=== PATIENT | female | born 1940 | race Caucasian/White ===

== ENCOUNTER 2016-09-18 11:48 | Inpatient (IN) | payer OTHER ==
[2016-09-18] VITALS (15 sets, daily range): BP systolic 73–115; BP diastolic 32–61; PULSE 59–75; TEMP 37.2–39.1; O2SAT 96–98; BMI 28.0
[~2016-09-18] VITALS: Ht 152.4 cm; Wt 72.7 kg
[2016-09-18] MEDS ORDERED: ONDANSETRON INJ 2 MG/ML 2 ML VIAL IV PRN (15:00)
[2016-09-18] MEDS ORDERED: ACETAMINOPHEN 325 MG TAB PO PRN (15:00)
[2016-09-18] MEDS ORDERED: NITROGLYCERIN 0.4 MG SL PER TAB CHARGE SL PRN (15:00)
[2016-09-18] MEDS ORDERED: HYDR-4079 PO (15:12)
[2016-09-18] MEDS ORDERED: BCTCR/30 EXT (15:12)
[2016-09-18] MEDS ORDERED: ATOR-22 PO (15:12)
[2016-09-18] MEDS ORDERED: MAGN400T5 PO (15:12)
[2016-09-18] MEDS ORDERED: OMEP20CA9 PO (15:12)
[2016-09-18] MEDS ORDERED: DOXE1TAB2 PO (15:12)
[2016-09-18] MEDS ORDERED: DILT120C PO (15:12)
[2016-09-18] MEDS ORDERED: INSPMPRGR SC (15:12)
[2016-09-18] MEDS ORDERED: OMEG-112 PO (15:12)
[2016-09-18] MEDS ORDERED: lovaza PO (15:12)
[2016-09-18] MEDS ORDERED: DSY100 PO (15:12)
[2016-09-18] MEDS ORDERED: B-CO1CAP17 PO (15:12)
[2016-09-18] MEDS ORDERED: VANCOMYCIN CONSULT ACTIVE PRN (15:37)
[2016-09-18] MEDS ORDERED: GLUCAGON FOR INJ 1 MG VIAL SQ PRN (15:45)
[2016-09-18] MEDS ORDERED: PATIENT'S HEIGHT AND/OR WEIGHT NEEDED SCH (15:45)
[2016-09-18] MEDS ORDERED: GLUCOSE 10 TABS/TUBE PO PRN (15:45)
[2016-09-18] MEDS ORDERED: GLUCOSE 40% GEL 15 GM TUBE PO PRN (15:45)
[2016-09-18] MEDS ORDERED: DEXTROSE 50% 50 ML SYR IV PRN (15:45)
[2016-09-18] MEDS ORDERED: PHARMACY GLYCEMIC MGMT CONSULT PRN (16:12)
[2016-09-18 16:14] LABS: BASO % 0.2 %; BASO ABS # 0.04 K/uL (0-0.2); HEMATOCRIT 27.7 % (37-47); IG% 0.4 %; LYMPH % 6.3 %; LYMPH ABS # 1.32 K/uL (1.2-3.4); MEAN CELL VOLUME 94.2 fL (80-100); MEAN PLATELET VOLUME 9.9 fL (7.4-10.4); MONO % 6.2 %; NEUT % 86.9 %; PLATELET COUNT 159 K/uL (130-400); RED BLOOD COUNT 2.94 M/uL (4.2-5.4); WHITE BLOOD COUNT 21.02 K/uL (4.8-10.8)
[2016-09-18] MEDS: INSULIN ASPART 100 UNITS/ML 3 ML PEN SC SCH ×2 (16:15→21:00)
--- NOTE | 2016-09-18 16:26 | DIAGNOSTIC IMAGING REPORT ---
SINGLE VIEW CHEST CLINICAL HISTORY: Change in mental status. Infection. FINDINGS: An AP, portable, upright chest radiograph is obtained. No prior studies are available for comparison at the time of dictation. The examination is degraded by portable technique and patient rotation. The patient is status post midline sternotomy. The heart is enlarged and there is atherosclerotic calcification of the thoracic aorta. There is pulmonary vascular congestion. No airspace consolidation or large pleural effusion is identified. No pneumothorax is seen. The skeletal structures are osteopenic. The bony thorax is grossly intact. A vascular stent is noted in the left upper extremity. IMPRESSION: 1. Cardiomegaly with evidence of congestive failure. 2. There is no airspace consolidation or large pleural effusion. Electronically signed by: Josh Vazquez M.D. 09/18/2016 4:24 PM Dictated Date/Time: 09/18/2016 4:23 PM
[2016-09-18 16:29] LABS: INR 1.1 (0.9-1.1); PARTIAL THROMBOPLASTIN RATIO 1.2; PROTHROMBIN TIME (PATIENT) 11.5 SECONDS (9.0-12.0)
--- NOTE | 2016-09-18 16:31 | History and Physical ---
History & Physical Date & Time of Service: Sep 18, 2016 at 15:56 Chief Complaint: Altered Mental Status Primary Care Physician: History of Present Illness Source: patient, family, hospital records Patient seen and examined. 76 year old female with PMHx of IDDM, HTN, ESRD on dialysis and other problems listed below is seen as a direct admission from [facility] for AMS, hyperkalemia, and need for dialysis. Patient's history is taken primarily from her daughter who states that patient has had a lot of pain in her left foot that had toes amputated all weekend, she also hasn' t been sleeping well. Today when she wokeup she appears generally weak and lethargic, and was not answer questions appropriately. She was scheduled to have a unit of PRBCs today before dialysis but her daughter didn't think she could take her there so she called EMS who took her to the ED. In the ED patient was afebrile, CT head was negative, WBC count was 16K, K was 6.3. Troponin was 0.11 She received her 1 unit of PRBCs. [facility] does not have dialysis so transfer to [facility] was requested. Currently the patient is resting comfortably, her daughter states she seems more confused since having dilaudid at [facility]. She reports that the patient was to have the blood transfusion before she had a repeat toe amputation, that procedure has been cancelled until the patient is medically stable. Patient denies fevers, chills, chest pain, SOB , nausea, vomiting, diarrhea. She does not urinate. She answers questions appropriately. Repeat labs are pending. She will be admitted for further workup and treatment. Past Medical/Surgical History Medical Problems: (1) Anemia Status: Chronic (2) CVA (cerebral vascular accident) Status: Chronic (3) Diabetes mellitus, insulin dependent (IDDM), controlled Status: Chronic (4) ESRD (end stage renal disease) Status: Chronic (5) GERD (gastroesophageal reflux disease) Status: Chronic (6) HTN (hypertension) Status: Chronic Family History Noncontributory d/t age Social History Smoking Status: Never Smoker Alcohol Use: none Housing status: lives with family Allergies Coded Allergies: Allopurinol (Unverified Allergy, Unknown, HIVES, 09/18/16) unknown reaction Cyclobenzaprine (Unverified Allergy, Unknown, DELIRIUM, 09/18/16) Sulfamethoxazole w/Trimethoprim (Unverified Allergy, Unknown, DELIRIUM, ) Home Medications Scheduled Atorvastatin (Lipitor), 1 TAB PO DAILY Diltiazem Hcl Coated Beads (Diltiazem Hcl Er), 1 CAP PO DAILY Doxepin Hcl (Sleep) (Silenor), 3 MG PO HS Magnesium Oxide (Mag-Ox), 400 MG PO DAILY Mupirocin 2% (Bactroban 2%), 1 APPLN EXT BID [place]-2-Cxxd Ethyl Esters ([place]-3), 1 CAP PO BID Omeprazole (Prilosec), 20 MG PO DAILY Trazodone HCl (Trazodone HCl), 150 MG PO HS Vitamin B Cmplx/Vitc/Folic Ac (Nephrocaps), 1 CAP PO DAILY [lovaza ], 1 GM PO BID Scheduled PRN Hydrocodone/Acetaminophen 10MG/325MG ([employer] 10MG/325MG), 1 TAB PO TID PRN for Pain Miscellaneous Medications Insulin Human Regular (Humulin R) Review of Systems See above for pertinent positives & negatives. A total of 10 systems reviewed and were otherwise negative. Physical Exam General Appearance: + pertinent finding (Chronically ill appearing 76 year old female lying in bed in NAD with daughter at bedside ) Head: normocephalic, atraumatic Eyes: PERRL, EOMI, sclerae normal ENT: hearing grossly normal, pharynx normal Neck: supple, no JVD, trachea midline Respiratory/Chest: chest non-tender, lungs clear, normal breath sounds, no respiratory distress, no accessory muscle use Cardiovascular: regular rate, rhythm, no gallop, no JVD, normal peripheral pulses, + systolic murmur Abdomen/GI: normal bowel sounds, non tender, soft Extremities/Musculoskelatal: no calf tenderness, normal capillary refill, + pertinent finding (L below the knee amputation, right foot with several toes amputated, no erthyema, edema or purulent drainage, amputation sites of right foot still in healing phase ) Neurologic/Psych: + pertinent finding (Lethargic, but oriented x 3, no motor or sensory deficits noted on gross exam ) Skin: normal color, warm/dry, no rash Lymphatic: no adenopathy Diagnostics Laboratory Results Results Past 24 Hours Test 09/18/16 15:04 09/18/16 15:16 09/18/16 15:28 Range/Units Creatine Kinase MB Ratio 0-3.0 Microbiology Results 09/18/16 Blood Culture, Ordered Pending 09/18/16 Blood Culture, Ordered Pending Impression Assessment and Plan 76 year old is seen as a direct admission from [facility] ED after presenting for AMS and missing dialysis HYPERKALEMIA - ESRD -Admit to tele -Had K+ of 6.3 at OSH, no EKG changes -repeat EKG -will need dialysis -Dr. Mclaughlin consulted for dialysis - he is aware of patient, input appreciated -Repeat Labs pending -Additional management pending further workup, please see Dr. Roberto's addendum HYPONATREMIA -129, unsure if chronic or acute -obtain outpatient records -fluid management per nephrology ELEVATED TROPONIN -0.11 in [place] -denies chest pain, SOB -likely secondary to ESRD -serial Juanita -monitor in tele LEUKOCYTOSIS -20K, febrile -? source - check procalcitonin, lactate -panculture -empirically cover with vancomycin, zosyn for now RIGHT TOE AMPUTATION -complaining of pain -continue [employer] -check foot XR to r/o osteomyelitis -check doppler US -vascular surgery consult placed -wound care consult placed ALTERED MENTAL STATUS -? cause differential diagnosis to include infectious, metabolic encephalopathy , and other causes -panculture -check CXR, foot XR -Neuro check q4h -continue Vancomycin - pharmacy consulted for dosing -additional management following initial workup GERD -continue PPI HTN -stable -continue Diltiazem IDDM -Check A1c -SSI coverage -BSG AC HS -pharmacy consulted for glycemic control ANEMIA OF CHRONIC DISEASE -Hgb 9 s/p 1 unit PRBCs at outpatient hospital -follow H&H H/O CVA -per patient's daughter -continue Statin DEMENTIA -per patient's daughter, mild dementia -continue Trazodone DVT PROPHYLAXIS: will not anticoagulated d/t anemia, and SCDs contraindicated d/ t vascular disease CODE STATUS: FULL CODE per my discussion with the patient's daughter DISPO:In my clinical judgment this beneficiary meets acute admission criteria, established by CMS, that includes being hospitalized through two midnights. Discharge planning eval placed Patient seen in collaboration with Dr. Roberto Attending Note: Patient is a 76 yr old female with PMH of DM II, HTN, ESRD on HD and other comorbidities presents with history of AMS. Patient is a poor historian and most of history is obtained from her daughter and from old records. She was found to be Leukocytosis, hyperkalemic at 6.5, hyponatremia at 129, CT head from [facility] showed no acute pathology. 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 She is currently lethargic, daughter attributes it to pain medication given at [facility]. She also received 1 unit PRBC at [place] which as per podiatry recommendation prior to amputation. Physical exam: Vitals sings as noted above General: Lethargic, oriented X3, Chronically ill appearing HEENT: NC/AT , EOMI CVS: S1, S2, +systolic murmur Resp: CTA, normal breath sounds Abd: Soft, Non tender, BS present Neuro: lethargic, Oriented X3, no focal deficits EXT: RLE below knee amputation, Left LE foot in bandage, no edema Skin: Midline well healed post surgical scar on chest, warm Assessment and plan: Altered mental status: Likely metabolic encephalopathy CT head: no acute pathology Neuro checks Sepsis: Likely source LLE wound Start on IV Vanco, Zosyn CXR:wnl, X ray LLE: no acute bony abnormality Check lactic acid, procalcitonin Blood cultures Vascular surgery consulted for possible amputation Hyperkalemia: Planned for urgent dialysis Nephrology consulted Hyponatremia: Sodium levels:129 Monitor for now Agree with rest of assessment and plan of Nelida Hassan PA-C as above. VTE Prophylaxis VTE Risk Assessment Done? Y/N: Yes Risk Level: High
[2016-09-18 16:38] LABS: COMPLETE YES; MEAN CORPUSCULAR HGB CONC 32.9 g/dl (32-36)
--- NOTE | 2016-09-18 16:41 | DIAGNOSTIC IMAGING REPORT ---
LEFT FOOT 3 VIEWS CLINICAL HISTORY: Left foot infection. FINDINGS: 3 portable views the left foot are obtained. No prior studies are available for comparison at the time of dictation. The skeletal structures are osteopenic. The examination is degraded by hammertoe deformities involving all digits. No fracture is identified. No bony erosion or periostitis is seen. Arthritic change is seen throughout the intertarsal joints and involving the tarsometatarsal joints. There are large dorsal and plantar calcaneal enthesophytes. Degenerative spurring is seen from the anterior tibial plafond and along the dorsal aspect of the tarsal bones. Mild diffuse soft tissue edema is present throughout the foot. There is advanced atherosclerotic calcification of the regional arteries. IMPRESSION: 1. No acute bony abnormality is seen in the left foot. 2. Osteopenia, arthritic change, heel spurs, and hammertoe deformities as above. 3. Mild diffuse soft tissue edema is noted throughout the foot. Correlate clinically for evidence of cellulitis. Electronically signed by: Josh Vazquez M.D. 09/18/2016 4:39 PM Dictated Date/Time: 09/18/2016 4:36 PM
[2016-09-18] MEDS ORDERED: PIPERACILL/TAZOBAC CONSULT ACTIVE PRN (16:45)
[2016-09-18] MEDS ORDERED: PIPERACILL/TAZOBAC IV 3.375 GM in DEXTROSE 5% 100ML 100 ML IV ONE (16:45)
[2016-09-18 16:51] LABS: ALB/GLOB RATIO 0.5 (0.9-2); CALCIUM 8.9 mg/dl (8.5-10.1); CKMB/CK RATIO 1.7 (0-3.0); CREATININE 7.3 mg/dl (0.60-1.20); MAGNESIUM 2.7 mg/dl (1.8-2.4); POTASSIUM 6.5 mmol/L (3.5-5.1)
[2016-09-18] MEDS ORDERED: EPOETIN ALFA 10,000 UNITS/ML VIAL IV. SCH (17:00)
--- NOTE | 2016-09-18 17:11 | DIAGNOSTIC IMAGING REPORT ---
LEFT LOWER EXTREMITY VENOUS DOPPLER HISTORY: Left leg pain COMPARISON STUDY: None. FINDINGS: Linear nonocclusive focus seen within the proximal superficial femoral vein. This favors chronic thrombus. The peroneal veins were not adequately visualized due to the patient's body habitus. The left common femoral, popliteal, anterior tibial, and posterior tibial veins are patent. IMPRESSION: 1. No acute DVT seen within the left lower extremity. 2. Small amount of nonocclusive chronic thrombus within the proximal superficial femoral vein. 3. The left peroneal veins were unable to visualized. Electronically signed by: Mikhail Sorensen M.D. 09/18/2016 5:10 PM Dictated Date/Time: 09/18/2016 5:08 PM
[2016-09-18] MEDS: HYDROCODONE/ACETAMI 10/325 TAB PO PRN (19:36)
--- NOTE | 2016-09-18 20:25 | Pharmacy Progress Note ---
Glycemic Control Intl Consult Date of Service Sep 18, 2016. Scope Glycemic Pharmacist consulted by Nelida Hassan on 09/18/16 for glycemic control and to write orders per [facility] inpatient glycemic control protocol Objective Weight (Kilograms): 65.100 Accuchecks BSG (last 24hrs): Test 09/18/16 15:40 09/18/16 16:17 Random Glucose 146 mg/dl (70-99) Bedside Glucose 159 mg/dl (70-90) Laboratory Data (last 24hrs) Test 09/18/16 15:40 Anion Gap 13.0 mmol/L BUN/Creatinine Ratio 8.0 Blood Urea Nitrogen 58 mg/dl Creatinine 7.30 mg/dl Potassium Level 6.5 mmol/L Sodium Level 129 mmol/L White Blood Count 21.02 K/uL Red Blood Count 2.94 M/uL Hemoglobin 9.1 g/dL Hematocrit 27.7 % Mean Corpuscular Volume 94.2 fL Mean Corpuscular Hemoglobin 31.0 pg Mean Corpuscular Hemoglobin Concent 32.9 g/dl Platelet Count 159 K/uL Mean Platelet Volume 9.9 fL Neutrophils (%) (Auto) 86.9 % Lymphocytes (%) (Auto) 6.3 % Monocytes (%) (Auto) 6.2 % Eosinophils (%) (Auto) 0.0 % Basophils (%) (Auto) 0.2 % Neutrophils # (Auto) 18.26 K/uL Lymphocytes # (Auto) 1.32 K/uL Monocytes # (Auto) 1.30 K/uL Eosinophils # (Auto) 0.01 K/uL Basophils # (Auto) 0.04 K/uL Recent Pertinent Medications Outpatient Anti-diabetic Regimen: * Humulin R sliding scale qam as patient admitted with AMS (diabetes is insulin dependent though --> based upon this information the patient does not appear to be a type 1 diabetic) * A1c = unknown % Risk Factors for Insulin Resistance: * patient is a dialysis patient * Steroids: * Infection: cellulitis * Pressors: * IVF: * Recent Surgery * Diet: * Mechanical Ventilation: Assessment & Plan ASSESSMENT: * ADA & AACE recommend a goal blood sugar range 140-180 mg/dl for the majority of critically ill & non-critically ill patients. However, more stringent targets may be selected in individual cases. PLAN FOR INPATIENT GLYCEMIC CONTROL: * Holding outpatient oral diabetes medications * Correctional Insulin with NOVOLOG per scale ACHS * Goal Range: Low 120 mg/dL - High 160 mg/dL * Correction Factor: 35 mg/dL/unit * Nutritional / Prandial insulin per carb ratio of 1 unit per 12 grams CHO consumed * Please note that the plan above was derived based on current level of insulin resistance and hospital stress. These recommendations are appropriate for inpatient admission only. Plan of care upon discharge will need to be reassessed to avoid potential outpatient hypo/hyperglycemia. Thank you.
[2016-09-18] MEDS ORDERED: ATROPINE SULFATE 0.1 MG/ML 5ML SYR ONE (20:28)
[2016-09-18] MEDS ORDERED: ATROPINE SO4 1 MG/ML 1ML VIAL IV ONE (20:31)
[2016-09-18] MEDS ORDERED: INSULIN HUMAN REGULAR PER UNIT 10 UNITS in SYRINGE 0 ML IV STA (20:36)
[2016-09-18] MEDS ORDERED: SODIUM BICARB 8.4% INJ 50 MEQ/50 ML SYR IV STA (20:36)
[2016-09-18] MEDS ORDERED: DEXTROSE 50% 50 ML SYR IV ONE (20:45)
[2016-09-18] MEDS ORDERED: CALCIUM GLUCONATE 10% 1,000 MG in SODIUM CHLORIDE 0.9% 50ML 50 ML IV ONE (20:45)
[2016-09-18] MEDS ORDERED: ATROPINE SULFATE 0.1 MG/ML 10 ML SYR IV PRN (20:45)
[2016-09-18] MEDS ORDERED: DOXEPIN HCL 3 MG PO SCH (21:00)
[2016-09-18] MEDS ORDERED: TRAZODONE HCL 100 MG TAB PO SCH (21:00)
[2016-09-18] MEDS ORDERED: HEPARIN SOD 5000 UNIT/0.5 ML CARP SQ SCH (21:00)
[2016-09-18] MEDS ORDERED: LOVAZA 1 GM PO SCH (21:00)
--- NOTE | 2016-09-18 21:08 | Pharmacy Progress Note ---
Pharmacy Antibiotic Consult Date of Service: Sep 18, 2016. Pharmacy Dosing Scope Pharmacy is consulted to initiate vancomycin/Zosyn IV dosing therapy, order appropriate labs and adjust drug dose/frequency. Subjective The patient is a 76 year old female admitted on Sep 18, 2016 at 14:27 with AMS, hyperkalemia, and cellulitis from [facility]. Objective Height (Feet): 5 Height (Inches): 0.00 Weight (Kilograms): 65.100 Lab Results (24hrs): Laboratory Tests Test 09/18/16 15:40 09/18/16 20:34 BUN/Creatinine Ratio 8.0 Blood Urea Nitrogen 58 mg/dl Creatinine 7.30 mg/dl White Blood Count 21.02 K/uL Red Blood Count 2.94 M/uL Hemoglobin 9.1 g/dL Hematocrit 27.7 % Mean Corpuscular Volume 94.2 fL Mean Corpuscular Hemoglobin 31.0 pg Mean Corpuscular Hemoglobin Concent 32.9 g/dl Platelet Count 159 K/uL Mean Platelet Volume 9.9 fL Neutrophils (%) (Auto) 86.9 % Lymphocytes (%) (Auto) 6.3 % Monocytes (%) (Auto) 6.2 % Eosinophils (%) (Auto) 0.0 % Basophils (%) (Auto) 0.2 % Neutrophils # (Auto) 18.26 K/uL Lymphocytes # (Auto) 1.32 K/uL Monocytes # (Auto) 1.30 K/uL Eosinophils # (Auto) 0.01 K/uL Basophils # (Auto) 0.04 K/uL Assessment & Plan Loading dose: vancomycin 1000 mg (15 mg/kg given at [facility] at 1037) IV X 1 dose then: vancomycin 750 mg IV x 1 dose after dialysis Goal peak level estimate: between 35 - 40 mcg/mL. Goal trough level estimate: between 15 - 20 mcg/mL (due to extensive illness). Random level has been ordered for: . Pharmacy will continue to follow and will adjust dose/frequency as necessary. Thank you
[2016-09-18] MEDS: MUPIROCIN 2% OINT 22 GM TUBE EXT SCH (21:50)
[2016-09-18] MEDS: OMEGA-3 (PURIFIED FISH OIL) 1 GM CAP PO SCH (21:51)
[2016-09-18] MEDS ORDERED: VANCOMYCIN INJ 750 MG in SODIUM CHLORIDE 0.9% 250ML 250 ML IV SCH (22:00)
[2016-09-19] VITALS (8 sets, daily range): BP systolic 86–108; BP diastolic 36–46; PULSE 68–81; TEMP 36.5–38.9; O2SAT 95–100; Ht 152.4 cm; Wt 72.7 kg
[2016-09-19 00:44] LABS: BUN/CREATININE RATIO 7.5 (10-20); CALCIUM 8.1 mg/dl (8.5-10.1); CREATININE 4.8 mg/dl (0.60-1.20); MAGNESIUM 2.2 mg/dl (1.8-2.4); POTASSIUM 4.7 mmol/L (3.5-5.1)
--- NOTE | 2016-09-19 01:29 | NEPHROLOGY CONSULTATION ---
DATE OF CONSULTATION: 09/18/2016 ATTENDING OF RECORD: Dr. Jones. REASON FOR CONSULTATION: ESRD and hyperkalemia. HISTORY OF PRESENT ILLNESS: This is a 76-year-old female who dialyzes at the [facility] on Tuesdays, , Saturdays, followed by the dietetic aide Dr. Harrington. The patient's last dialysis treatment was Saturday. The patient is confused, history taken from daughter. The patient did have 2 toes amputated in July but is having worsening pain in the left foot. Dialysis was actually cut short on secondary to the pain. The patient is becoming more weak, tired, decreased appetite. The patient's hemoglobin levels were trending down as well and was transfused at the [facility] today. Potassium was elevated at 6.3. CT of the head was negative. The patient did have a white count of 16,000. The patient transferred here and has an elevated white count of 21,000. Does have a fever of 39.1 and is bradycardic at 59. The patient relatively lethargic, no longer urinates, has been on dialysis for about 12 years and was doing relatively well up until the last 4 or 5 days. Does have a skin tear on her buttocks area, being followed by home nursing/wound care. Daughter states wound on foot is not healing well and can see bone. PAST MEDICAL HISTORY: Diabetes, end-stage renal disease, on dialysis for about 12 years at the [facility] on Tuesdays, , Saturdays. Last dialysis was Saturday, followed by Dr. Harrington. GERD, hypertension, history of stroke in the past, anemia of end-stage renal disease. SOCIAL HISTORY: No smoking, no alcohol, no drugs. Lives at home with her daughter who is the primary caregiver. CURRENT MEDICATIONS: Lipitor 20 mg daily, diltiazem 120 mg daily, magnesium 400 mg daily, Nephrocaps daily, Protonix 40 mg daily, fish oil 1 gram p.o. b.i.d., trazodone 150 mg at night, Zosyn 3.375 IV q. 6. REVIEW OF SYSTEMS: The patient is confused and lethargic, unable to obtain a reliable review of systems. PAST SURGICAL HISTORY: Left BKA, two toes removed on the other foot, fistula placements. FAMILY HISTORY: positive for diabetes PHYSICAL EXAMINATION: VITAL SIGNS: Temperature is 39.1, pulse 59, respiratory rate is 20, blood pressure 115/39, satting 96% on room air. GENERAL: Awake but lethargic. EYES: No scleral icterus. ENT: Moist mucous membranes. NECK: Supple. PULMONARY: Clear to auscultation. CARDIAC: 2/6 systolic murmur, bradycardic. ABDOMEN: Bowel sounds positive. Soft, nontender. EXTREMITIES: Right foot wrapped with several toes amputated, left BKA. Right foot with wounds that are still healing. NEUROLOGIC: Lethargic. DERMATOLOGIC: Having some ulcers on her buttocks, low back, as well as healing wounds on the right foot. LABORATORIES: White count is 21,000, H\T\H 9.1 and 27.7, platelet count is 159. Glucose 159. Other labs are pending. Vancomycin level is pending. INR is 1.1. Blood cultures are pending. Chest x-ray shows cardiomegaly with evidence of congestive failure. No airspace consolidation or large pleural effusion. Foot x-ray done, results pending. IMPRESSION: 1. End-stage renal disease: The patient missed today's dialysis treatment and potassium level was elevated at outside hospital. Labs are pending now, but we will plan on a 2K bath with dialysis tonight. No fluid removal secondary to the signs of sepsis with elevated white count and fevers while still oxygenating well on room air. We will dialyze for clearance and lowering of potassium. 2. Anemia of renal failure. Did recently get 1 unit of packed red blood cells this morning and we will continue Procrit here in the hospital. LAURA
[2016-09-19 02:56] LABS: HEMATOCRIT 26.9 % (37-47); MEAN CELL VOLUME 95.7 fL (80-100); MEAN CORPUSCULAR HEMOGLOBIN 31.7 pg (25-34); MEAN CORPUSCULAR HGB CONC 33.1 g/dl (32-36); MEAN PLATELET VOLUME 9.5 fL (7.4-10.4); PLATELET COUNT 131 K/uL (130-400); RED BLOOD COUNT 2.81 M/uL (4.2-5.4); WHITE BLOOD COUNT 16.29 K/uL (4.8-10.8)
[2016-09-19 03:28] LABS: HEPATITIS B AB NEG
[2016-09-19] MEDS: PIPERACILL/TAZOBAC IV 4.5 GM in DEXTROSE 5% 100ML IV SCH ×2 (03:29→16:41)
[2016-09-19 03:48] LABS: BUN/CREATININE RATIO 7.5 (10-20); CALCIUM 8.4 mg/dl (8.5-10.1); CKMB/CK RATIO 1.7 (0-3.0); CREATININE 5.1 mg/dl (0.60-1.20); MAGNESIUM 2.4 mg/dl (1.8-2.4); POTASSIUM 4.7 mmol/L (3.5-5.1)
[2016-09-19] MEDS ORDERED: ACETAMINOPHEN IV 650 MG in EMPTY BAG 0 ML IV PRN (04:00)
[2016-09-19 06:11] LABS: ESTIMATED AVERAGE GLUCOSE 114 mg/dl; HA1C FLAG Normal (Normal)
[2016-09-19] MEDS: INSULIN ASPART 100 UNITS/ML 3 ML PEN SC SCH ×4 (07:00→21:00)
--- NOTE | 2016-09-19 08:23 | Nephrology Progress Note ---
Nephrology Progress Note Date of Service: Sep 19, 2016. Subjective 76 yo female with dialysis t-h-s at the [facility] followed by Dr. Harrington. has significant vascular disease. has wound on right foot which is not healing well. came in with lethargy, leukocytosis, fevers, hyperkalemia and appeared septic. broad spectrum antibiotics were given and pt had emergent dialysis last night for hyperkalemia. during dialysis, despite no fluid removal , bp was low and had to give fluids on dialysis, also had significant ectopy and pads were placed as a precaution. had two hours of dialysis last night. k early this morning improved to 4.7 and pt is awake and eating breakfast. pulse steady in the 70s and bp improved. Objective Date Time Temp Pulse Resp B/P Pulse Ox O2 Delivery O2 Flow Rate FiO2 09/19/16 05:24 37.2 09/19/16 04:00 Nasal Cannula 2.0 09/19/16 03:38 38.9 77 26 108/45 95 Nasal Cannula 3.0 09/19/16 02:33 103/38 97 Nasal Cannula 2.0 09/19/16 00:00 Nasal Cannula 2.0 09/18/16 23:02 37.2 75 20 114/52 98 Nasal Cannula 2.0 09/18/16 22:07 108/61 09/18/16 20:52 37.5 61 88/33 09/18/16 20:45 64 76/34 09/18/16 20:30 Nasal Cannula 2.0 09/18/16 20:30 64 84/32 09/18/16 20:15 64 74/39 09/18/16 20:00 64 73/38 09/18/16 19:45 66 107/42 09/18/16 19:30 64 95/44 09/18/16 19:15 63 97/40 09/18/16 19:00 61 89/44 09/18/16 18:55 60 89/36 09/18/16 18:45 38.3 60 20 90/42 96 Nasal Cannula 2.0 09/18/16 18:42 38.3 60 90/42 09/18/16 15:07 39.1 59 20 115/39 96 Room Air Physical Exam: General-aaox3, more awake today Eyes-no scleral icterus ENT-mmm Neck-supple Lungs-cta Heart-irregular Abdomen-bs+ s/nt/nd Extremities-right bka, left foot wrapped Neuro-nonfocal, more awake today Current Inpatient Medications Medications (Trade) Dose Ordered Sig/Herlinda Route Start Time Stop Time Status Last Admin Dose Admin Acetaminophen (Tylenol Tab) 650 mg Q4H PRN PO 09/18/16 15:00 10/18/16 14:59 Ondansetron HCl (Zofran Inj) 4 mg Q6H PRN IV 09/18/16 15:00 10/18/16 14:59 Nitroglycerin (Nitrostat Tab) 0.4 mg UD PRN SL 09/18/16 15:00 10/18/16 14:59 Vancomycin HCl (Consult) 1 ea UD PRN N/A 09/18/16 15:37 10/18/16 15:36 Atorvastatin Calcium (Lipitor Tab) 20 mg DAILY PO 09/19/16 09:00 10/19/16 08:59 Diltiazem HCl (Cardizem Cd Cap) 120 mg DAILY PO 09/19/16 09:00 10/19/16 08:59 Acetaminophen/ Hydrocodone Bitart ([place] 10/325 Tab) 1 tab TID PRN PO 09/18/16 15:45 10/02/16 15:44 09/18/16 19:36 1 TAB Magnesium Oxide (Mag-Ox Tab) 400 mg DAILY PO 09/19/16 09:00 10/19/16 08:59 Fish Oil ([place]-3 (Purified Fish Oil) Cap) 1 gm BID PO 09/18/16 21:00 10/18/16 20:59 09/18/16 21:51 1 GM Trazodone HCl (Desyrel Tab) 150 mg HS PO 09/18/16 21:00 10/18/16 20:59 Future Hold Vitamin B Complex/ Vit C/Folic Acid (Nephrocaps) 1 cap DAILY PO 09/19/16 09:00 10/19/16 08:59 Mupirocin (Bactroban 2% Oint) 1 appln BID EXT 09/18/16 21:00 10/18/16 20:59 09/18/16 21:50 1 APPLN Pantoprazole Sodium (Protonix Tab) 40 mg DAILY PO 09/19/16 09:00 10/19/16 08:59 Insulin Aspart (novoLOG ASPART) SLIDING SCALE If C... ACHS SC 09/18/16 16:15 10/18/16 16:14 Glucose (Glucose 40% Gel) 15-30 GRAMS 15 GRAMS... UD PRN PO 09/18/16 15:45 10/18/16 15:44 Glucose (Glucose Chew Tab) 4-8 Tablets 4 Tabl... UD PRN PO 09/18/16 15:45 10/18/16 15:44 Dextrose (Dextrose 50% 50ML Syringe) 25-50ML OF 50% DW IV FOR... UD PRN IV 09/18/16 15:45 10/18/16 15:44 Glucagon (Glucagon Inj) 1 mg UD PRN SQ 09/18/16 15:45 10/18/16 15:44 Miscellaneous Information (Consult Glycemic Management Pharmacy) 1 ea UD PRN N/A 09/18/16 16:12 10/18/16 16:11 Miscellaneous Information (Order Awaiting Action) 1 ea QS N/A 09/19/16 00:00 10/19/16 00:00 Piperacillin Sod/ Tazobactam Sod (Consult) 1 ea UD PRN N/A 09/18/16 16:45 10/18/16 16:44 Atropine Sulfate 0.5 mg 0.5 mg UD PRN IV 09/18/16 20:45 10/18/16 20:44 Piperacillin Sod/ Tazobactam Sod 4.5 gm/Dextrose 120 ml @ 30 mls/hr Q12H IV 09/19/16 04:00 09/29/16 03:59 09/19/16 03:29 30 MLS/HR Acetaminophen/ Empty Bag (Ofirmev IV/ Empty Iv Bag 100ml) 65 ml @ 260 mls/hr Q6H PRN IV 09/19/16 04:00 10/19/16 03:59 09/19/16 04:22 260 MLS/HR Last 24 Hours Test 09/18/16 15:40 09/18/16 16:17 09/18/16 17:15 09/18/16 20:27 White Blood Count 21.02 K/uL Red Blood Count 2.94 M/uL Hemoglobin 9.1 g/dL Hematocrit 27.7 % Mean Corpuscular Volume 94.2 fL Mean Corpuscular Hemoglobin 31.0 pg Mean Corpuscular Hemoglobin Concent 32.9 g/dl Platelet Count 159 K/uL Mean Platelet Volume 9.9 fL Neutrophils (%) (Auto) 86.9 % Lymphocytes (%) (Auto) 6.3 % Monocytes (%) (Auto) 6.2 % Eosinophils (%) (Auto) 0.0 % Basophils (%) (Auto) 0.2 % Neutrophils # (Auto) 18.26 K/uL Lymphocytes # (Auto) 1.32 K/uL Monocytes # (Auto) 1.30 K/uL Eosinophils # (Auto) 0.01 K/uL Basophils # (Auto) 0.04 K/uL RDW Standard Deviation 62.3 fL RDW Coefficient of Variation 17.8 % Immature Granulocyte % (Auto) 0.4 % Immature Granulocyte # (Auto) 0.09 K/uL Prothrombin Time 11.5 SECONDS Prothromb Time International Ratio 1.1 Activated Partial Thromboplast Time 31.5 SECONDS Partial Thromboplastin Ratio 1.2 Sodium Level 129 mmol/L Potassium Level 6.5 mmol/L Chloride Level 93 mmol/L Carbon Dioxide Level 24 mmol/L Anion Gap 13.0 mmol/L Blood Urea Nitrogen 58 mg/dl Creatinine 7.30 mg/dl Est Creatinine Clear Calc Drug Dose 5.3 ml/min Estimated GFR () 5.6 Estimated GFR (Non- 4.9 BUN/Creatinine Ratio 8.0 Random Glucose 146 mg/dl Calcium Level 8.9 mg/dl Magnesium Level 2.7 mg/dl Total Bilirubin 0.7 mg/dl Aspartate Amino Transf (AST/SGOT) 17 U/L Alanine Aminotransferase (ALT/SGPT) 18 U/L Alkaline Phosphatase 131 U/L Total Creatine Kinase 143 U/L Creatine Kinase MB 2.5 ng/ml Creatine Kinase MB Ratio 1.7 Troponin I 0.115 ng/ml Total Protein 7.2 gm/dl Albumin 2.5 gm/dl Globulin 4.7 gm/dl Albumin/Globulin Ratio 0.5 Bedside Glucose 159 mg/dl 126 mg/dl Lactic Acid Level 1.2 mmol/L Procalcitonin 1.48 ng/mL Random Vancomycin Level 14.4 mcg/ml Test 09/18/16 23:59 09/19/16 02:46 09/19/16 06:29 Sodium Level 134 mmol/L 135 mmol/L Potassium Level 4.7 mmol/L 4.7 mmol/L Chloride Level 95 mmol/L 97 mmol/L Carbon Dioxide Level 27 mmol/L 29 mmol/L Anion Gap 12.0 mmol/L 9.0 mmol/L Blood Urea Nitrogen 36 mg/dl 38 mg/dl Creatinine 4.80 mg/dl 5.10 mg/dl Est Creatinine Clear Calc Drug Dose 8.1 ml/min 7.7 ml/min Estimated GFR () 9.4 8.7 Estimated GFR (Non- 8.1 7.5 BUN/Creatinine Ratio 7.5 7.5 Random Glucose 218 mg/dl 179 mg/dl Lactic Acid Level 1.7 mmol/L Calcium Level 8.1 mg/dl 8.4 mg/dl Magnesium Level 2.2 mg/dl 2.4 mg/dl Troponin I 0.179 ng/ml 0.342 ng/ml White Blood Count 16.29 K/uL Red Blood Count 2.81 M/uL Hemoglobin 8.9 g/dL Hematocrit 26.9 % Mean Corpuscular Volume 95.7 fL Mean Corpuscular Hemoglobin 31.7 pg Mean Corpuscular Hemoglobin Concent 33.1 g/dl RDW Standard Deviation 61.9 fL RDW Coefficient of Variation 17.6 % Platelet Count 131 K/uL Mean Platelet Volume 9.5 fL Estimated Average Glucose 114 mg/dl Hemoglobin A1c 5.6 % Total Creatine Kinase 125 U/L Creatine Kinase MB 2.1 ng/ml Creatine Kinase MB Ratio 1.7 Hepatitis B Surface Antigen NEG Hepatitis B Surface Antibody NEG Bedside Glucose 180 mg/dl Date/Time Source Procedure Growth Status 09/18/16 15:51 Blood Blood Culture Pending Received 09/18/16 15:40 Blood Blood Culture Pending Received Assessment & Plan ESRD-had two hour treatment last night. no dialysis for today. volume status and electrolytes are stable. will re-evaluate tomorrow for possible dialysis. Anemia of renal failure-had procrit last night on dialysis and had one unit of blood at OSH prior to coming to [facility]. hg levels are stable. Sepsis-on broad spectrum antibiotics and blood cultures are pending. Cards-troponin trending up in setting of sepsis, however, pt clinically much improved. leukocytosis improving. fevers improved. pt mentally better. heart rhythm more stable.
[2016-09-19] MEDS: MUPIROCIN 2% OINT 22 GM TUBE EXT SCH ×2 (08:47→21:12)
[2016-09-19] MEDS: ATORVASTATIN 20 MG TAB PO SCH (08:50)
[2016-09-19] MEDS: OMEGA-3 (PURIFIED FISH OIL) 1 GM CAP PO SCH ×2 (08:50→21:11)
[2016-09-19] MEDS: DILTIAZEM HCL 120 MG CAPCR PO SCH (08:51)
[2016-09-19] MEDS: MAGNESIUM OXIDE 400 MG TAB PO SCH (08:52)
[2016-09-19] MEDS: PANTOprazole SOD 40 MG TAB PO SCH (08:52)
[2016-09-19] MEDS: NEPHROCAPS PO SCH (08:52)
[2016-09-19] MEDS: SODIUM CHLORIDE 0.9% 1000ML 1,000 ML IV SCH (09:39)
[2016-09-19] MEDS ORDERED: SODIUM CHLORIDE 0.9% 1000ML 250 ML IV SCH (09:45)
--- NOTE | 2016-09-19 10:15 | DIAGNOSTIC IMAGING REPORT ---
Arterial Doppler ultrasound left lower extremity CLINICAL HISTORY: Left leg pain. Suspected peripheral vascular disease. COMPARISON STUDY: No previous studies for comparison. FINDINGS: The examination is somewhat limited in that it was performed in a portable fashion There is biphasic flow within the common femoral artery. There is biphasic flow within the proximal left superficial femoral artery. There is monophasic flow within the mid to distal superficial femoral artery. There is a biphasic popliteal waveform. There are monophasic anterior tibial, posterior tibial, and peroneal waveforms. Ankle-brachial indices were not obtained, as examination was performed in a portable fashion. IMPRESSION: 1. Moderate diffuse atheromatous changes. 2. No focal arterial conclusions were demonstrated to 3. If the patient becomes clinically stable enough to come to the department, then ankle brachial indices could be obtained. Electronically signed by: Darian Cazares M.D. 09/19/2016 10:13 AM Dictated Date/Time: 09/19/2016 10:08 AM
--- NOTE | 2016-09-19 12:36 | Pharmacy Progress Note ---
Pharmacy Antibiotic Prog Note Date of Service: Sep 19, 2016. Subjective: The patient is currently receiving Vancomycin IV based on random levels and Zosyn 4.5g IV q12h for treatment of sepsis secondary to LLE wound, r/o osteomyelitis. The patient is currently on day # 2 of IV therapy. Objective: Height (Feet): 5 Height (Inches): 0.00 Weight (Kilograms): 62.700 Levels: Item Value Date Time Random Vancomycin Level 18.7 mcg/ml 09/19/16 1005 Random Vancomycin Level 14.4 mcg/ml 09/18/16 1715 Lab Results (24hrs): Laboratory Tests Test 09/18/16 15:40 09/18/16 23:59 09/19/16 02:46 BUN/Creatinine Ratio 8.0 7.5 7.5 Blood Urea Nitrogen 58 mg/dl 36 mg/dl 38 mg/dl Creatinine 7.30 mg/dl 4.80 mg/dl 5.10 mg/dl White Blood Count 21.02 K/uL 16.29 K/uL Red Blood Count 2.94 M/uL Hemoglobin 9.1 g/dL Hematocrit 27.7 % Mean Corpuscular Volume 94.2 fL Mean Corpuscular Hemoglobin 31.0 pg Mean Corpuscular Hemoglobin Concent 32.9 g/dl Platelet Count 159 K/uL Mean Platelet Volume 9.9 fL Neutrophils (%) (Auto) 86.9 % Lymphocytes (%) (Auto) 6.3 % Monocytes (%) (Auto) 6.2 % Eosinophils (%) (Auto) 0.0 % Basophils (%) (Auto) 0.2 % Neutrophils # (Auto) 18.26 K/uL Lymphocytes # (Auto) 1.32 K/uL Monocytes # (Auto) 1.30 K/uL Eosinophils # (Auto) 0.01 K/uL Basophils # (Auto) 0.04 K/uL Micro Results: Item Value Date Time Blood Culture - Preliminary Resulted 09/18/16 1551 Blood Gram Positive Cocci Blood Culture - Preliminary Resulted 09/18/16 1540 Blood Gram Positive Cocci MRSA DNA Surveillance Screen - Final Complete 09/18/16 0000 Nasal Specimen Positive for MRSA by DNA Probe Recent Pertinent Medications: Vancomycin 1g IV given at [facility] - 09/18 at 1037. Assessment & Plan: Assessment 76 year old female with ESRD on HD receiving Vancomycin and Zosyn for sepsis secondary to LLE wound infection with possible osteomyelitis. The patient recently had toes amputated from right foot. Gram positive cocci reported in 2/ 2 blood cultures. Plan Vancomycin IV * Vancomycin doses on 09/18: 1gm IV @ 1037 and 750 mg IV @ 2200. * Random level of 18.7 mcg/mL is therapeutic. Goal trough level estimate: between 15 - 20 mcg/mL. * Patient received a two hour HD session last evening. HD is not indicated today. Nephrology will re-assess 09/20 am. * Random level this am was slightly less than than what I have calculated based on partial HD session yesterday and post-HD dose of 750 mg. I calculated level to be around 25 mcg/mL. This leads me to believe that patient may have some residual kidney function. * Random level has been ordered for today at 1900 to ensure level does not fall below 15 mcg/mL. This level will help determine if patient does in fact have residual kidney function. * if level remains unchanged -> no dose will be given today * if level is less than or equal to 15 mcg/mL or is anticipated to be less than 15 mcg/mL before tomorrow morning -> will give 500 mg IV Zosyn IV * 4.5g IV every 12 hours Pharmacy will continue to follow and will adjust dose/frequency as necessary. Thank you
--- NOTE | 2016-09-19 14:23 | Surgery Consultation ---
Consultation Date of Service Sep 19, 2016. Chief Complaint LLE nonhealing wounds History of Present Illness The patient is a 76 year old female with multiple medical problems, including ESRD on HD and s/p RLE BKA, seen in consultation today for PAD and LLE nonhealing wounds. Pt currently admitted d/t altered mental status and bacteremia. Pt states she had 2 toes amputated by a route service representative [facility](pt with some confusion, timing may not be accurate) . States she saw Dr Contreras again on 09/12, and was told that her wounds will not heal d/t lack of blood flow. Thinks she is here at [facility] to have her blood flow restored. Denies pain, edema, LIMON, fever, chills, N/V, other complaints. States has been ambulating with her RLE prosthesis and a walker, but not for a few weeks. Vitals Vital Signs Past 12 Hours Date Time Temp Pulse Resp B/P Pulse Ox O2 Delivery O2 Flow Rate FiO2 09/19/16 12:00 Nasal Cannula 2.0 09/19/16 11:22 36.5 68 20 88/45 99 Nasal Cannula 2.0 09/19/16 08:56 36.6 71 14 88/39 97 Nasal Cannula 2.0 09/19/16 08:00 Nasal Cannula 2.0 09/19/16 05:24 37.2 09/19/16 04:00 Nasal Cannula 2.0 09/19/16 03:38 38.9 77 26 108/45 95 Nasal Cannula 3.0 09/19/16 02:33 103/38 97 Nasal Cannula 2.0 Allergies Coded Allergies: Allopurinol (Unverified Allergy, Unknown, HIVES, 09/18/16) unknown reaction Cyclobenzaprine (Unverified Allergy, Unknown, DELIRIUM, 09/18/16) Sulfamethoxazole w/Trimethoprim (Unverified Allergy, Unknown, DELIRIUM, ) Home Medications Scheduled Atorvastatin (Lipitor), 1 TAB PO DAILY Diltiazem Hcl Coated Beads (Diltiazem Hcl Er), 1 CAP PO DAILY Doxepin Hcl (Sleep) (Silenor), 3 MG PO HS Magnesium Oxide (Mag-Ox), 400 MG PO DAILY Mupirocin 2% (Bactroban 2%), 1 APPLN EXT BID Wschs-2-Eive Ethyl Esters ([place]-3), 1 CAP PO BID Omeprazole (Prilosec), 20 MG PO DAILY Trazodone HCl (Trazodone HCl), 150 MG PO HS Vitamin B Cmplx/Vitc/Folic Ac (Nephrocaps), 1 CAP PO DAILY [lovaza ], 1 GM PO BID Scheduled PRN Hydrocodone/Acetaminophen 10MG/325MG ([place] 10MG/325MG), 1 TAB PO TID PRN for Pain Miscellaneous Medications Insulin Human Regular (Humulin R) Problem List Medical Problems: (1) Altered mental status (2) Anemia (3) CVA (cerebral vascular accident) (4) Diabetes mellitus, insulin dependent (IDDM), controlled (5) ESRD (end stage renal disease) (6) GERD (gastroesophageal reflux disease) (7) HTN (hypertension) (8) Hyperkalemia Surgical Problems: (1) Hx of CABG Surgical / Medical History Hx Cardiac Surgery: Yes (cabg) Hx Cancer Surgery: No Hx Thoracic Surgery: No Hx Orthopedic: Yes (hip repair) Hx Urinary Tract Surgery: No Past Medical/Surgical History: Diabetes, Kidney Disease Family History Noncontributory d/t age + HTN/CAD Social History Smoking Status: Never Smoker Hx Alcohol Use - Type & Amnt: No Hx Substance Use -Type & Amnt: No Review of Systems Constitutional: No chills, No fever, No malaise Skin: No change in color Eyes: No visual changes ENMT: No sore throat Respiratory: No VALDES, No cough, No hemoptysis Cardiovascular: No chest pain, No edema, No intermittent claudication Gastrointestinal: No abdominal pain, No diarrhea, No nausea Genitourinary - Female: No dysuria, No hematuria Neurologic: No dizziness, No lethargy, No numbness Physical Exam Constitutional: General Apperance: well-nourished, well-developed, too thin Level of Distress: NAD, acutely ill, chronically ill Psychiatric: Mental Status: active & alert, normal mood, confused Orientation: to place, to person, not oriented to time Memory: recent memory abnormal, remote memory abnormal Head: normocephalic, atraumatic Eyes: EOM: EOMI ENMT: normal ENT inspection, hearing grossly normal Neck: supple, trachea midline Lungs: Respiratory effort: no dyspnea Auscultation: breath sounds normal, no rales/crackles, no rhonchi Cardiovascular: Apical Impulse: not displaced Heart Auscultation: no rubs, no gallops, bradycardia Peripheral Pulses: Pulses: full and equal, in all extremities except if noted Bruits: none appreciated Carotid Pulse: normal on the left, normal on the right Brachial Pulses: normal on the left, normal on the right, pertinent finding (LUE AVF + thrill/bruit) Radial Pulse: normal on the left, normal on the right Femoral Pulse: decreased on the left, decreased on the right Posterior Tibialis Pulse: absent on the left, absent on the right Dorsalis Pedis Pulse: absent on the left, absent on the right Abdomen: Bowel Sounds: normal Inspection & Palpation: soft, non-distended, no tenderness, guarding & rebound Musculoskeletal: normal tone Extremities: Upper Right: no cyanosis, no edema, no varicosities Upper Left: no cyanosis, no edema, no varicosities Lower Right: no cyanosis, no edema, no varicosities, pertinent finding (+ BKA, well healed) Lower Left: no cyanosis, no edema, no varicosities, pertinent finding (LLE with multiple punctate eschars, small, scattered over foot/toes/heel. + cap refill to remaining toes. 3rd and 4th toes partially amputated, with open areas on remaining portions. No erythema, tenderness, or edema noted. No drainage or odor. ) Neurologic: Cranial Nerves: grossly intact Assessment and Plan ASSESSMENT and PLAN: LLE nonhealing wounds PAD Bacteremia Pt with multiple medical problems and extensive arterial disease without indications for emergent intervention. US demonstrates diffuse disease without focal lesions, not likely amenable to endovascular approach. No osteomyelitis identified on x-ray. D/T extent of arterial disease in association with LLE wounds, recommend local wound care and f/u with outpt vascular surgery that participates with her insurance. Also recommend outpt wound clinic regular follow up. Please call if needed.
[2016-09-19 19:02] LABS: POTASSIUM 4.4 mmol/L (3.5-5.1)
[2016-09-19 19:14] LABS: MAGNESIUM 2.4 mg/dl (1.8-2.4)
--- NOTE | 2016-09-19 19:14 | Progress Note ---
Internal Med Progress Note Date of Service: Sep 19, 2016. Provider Documentation: SUBJECTIVE: resting comfortably alert and oriented eating ok denies any pain no nausea no chest pain or sob OBJECTIVE: Vital Signs-as noted below Exam: General-alert and oriented ENT-normal hearing Neck-no neck masses Lungs-cta b/l no wheezing or crackles Heart-s1 and s2 heard regular rate and rhythm no murmurs Abdomen-soft bowel sounds present non tender no distension Extremities-no erythema left foot in dressing Neuro-alert and awake moves extremities Lab data as noted below. ASSESSMENT & PLAN: 76 year old is seen as a direct admission from [facility] after presenting for AMS and missing dialysis HYPERKALEMIA - ESRD K 6.3 on presentation s/p dialysis appreciate nephrology inputs resolved HYPONATREMIA -129, on presentation na 135 today. Sepsis Bacteremia left lower extremity wounds on iv vanco and zosyn blood cx gm positive cocci lactic acid normal gentle fluids for hypotension ID consulted ELEVATED TROPONIN -0.11 in [facility] asymptomatic likely secondary to ESRD serial [facility] will f/u echo Bradycardia on and off diltiazem held monitor in [facility] f/u echo will consider cardiology consult if persist RIGHT BKA. Left foot wounds abx as above appreciate vascular surgery inputs. GERD PPI HTN diltiazem held for bradycardia IDDM on iss hba1c 5.6 ANEMIA OF CHRONIC DISEASE Hgb 9 s/p 1 unit PRBCs at outpatient hospital will follow h and h 8.9 today H/O CVA per patient's daughter on Statin DEMENTIA per patient's daughter, mild dementia DVT PROPHYLAXIS: will not anticoagulated d/t anemia, and SCDs contraindicated d/ t vascular disease CODE STATUS: Level 3 per my discussion with the patient's daughter DISPOSITION monitor in tele Vital Signs: Date Time Temp Pulse Resp B/P Pulse Ox O2 Delivery O2 Flow Rate FiO2 09/19/16 16:00 Nasal Cannula 2.0 09/19/16 15:42 36.5 69 18 95/36 100 2.0 09/19/16 12:00 Nasal Cannula 2.0 09/19/16 11:22 36.5 68 20 88/45 99 Nasal Cannula 2.0 09/19/16 08:56 36.6 71 14 88/39 97 Nasal Cannula 2.0 09/19/16 08:00 Nasal Cannula 2.0 09/19/16 05:24 37.2 09/19/16 04:00 Nasal Cannula 2.0 09/19/16 03:38 38.9 77 26 108/45 95 Nasal Cannula 3.0 09/19/16 02:33 103/38 97 Nasal Cannula 2.0 09/19/16 00:00 Nasal Cannula 2.0 09/18/16 23:02 37.2 75 20 114/52 98 Nasal Cannula 2.0 09/18/16 22:07 108/61 09/18/16 20:52 37.5 61 88/33 09/18/16 20:45 64 76/34 09/18/16 20:30 Nasal Cannula 2.0 09/18/16 20:30 64 84/32 09/18/16 20:15 64 74/39 09/18/16 20:00 64 73/38 09/18/16 19:45 66 107/42 09/18/16 19:30 64 95/44 09/18/16 19:15 63 97/40 Lab Results: Results Past 24 Hours Test 09/18/16 20:27 09/18/16 23:59 09/19/16 02:46 09/19/16 06:29 Range/Units Bedside Glucose 126 180 70-90 mg/dl Sodium Level 134 135 136-145 mmol/L Potassium Level 4.7 4.7 3.5-5.1 mmol/L Chloride Level 95 97 98-107 mmol/L Carbon Dioxide Level 27 29 21-32 mmol/L Anion Gap 12.0 9.0 3-11 mmol/L Blood Urea Nitrogen 36 38 7-18 mg/dl Creatinine 4.80 5.10 0.60-1.20 mg/dl Est Creatinine Clear Calc Drug Dose 8.1 7.7 ml/min Estimated GFR () 9.4 8.7 Estimated GFR (Non- 8.1 7.5 BUN/Creatinine Ratio 7.5 7.5 10-20 Random Glucose 218 179 70-99 mg/dl Lactic Acid Level 1.7 0.4-2.0 mmol/L Calcium Level 8.1 8.4 8.5-10.1 mg/dl Magnesium Level 2.2 2.4 1.8-2.4 mg/dl Troponin I 0.179 0.342 0-0.045 ng/ml White Blood Count 16.29 4.8-10.8 K/uL Red Blood Count 2.81 4.2-5.4 M/uL Hemoglobin 8.9 12.0-16.0 g/dL Hematocrit 26.9 37-47 % Mean Corpuscular Volume 95.7 80-100 fL Mean Corpuscular Hemoglobin 31.7 25-34 pg Mean Corpuscular Hemoglobin Concent 33.1 32-36 g/dl RDW Standard Deviation 61.9 36.4-46.3 fL RDW Coefficient of Variation 17.6 11.5-14.5 % Platelet Count 131 130-400 K/uL Mean Platelet Volume 9.5 7.4-10.4 fL Estimated Average Glucose 114 mg/dl Hemoglobin A1c 5.6 4.5-5.6 % Total Creatine Kinase 125 26-192 U/L Creatine Kinase MB 2.1 0.5-3.6 ng/ml Creatine Kinase MB Ratio 1.7 0-3.0 Hepatitis B Surface Antigen NEG NEG Hepatitis B Surface Antibody NEG Test 09/19/16 10:05 09/19/16 11:17 09/19/16 18:20 Range/Units Lactic Acid Level 1.5 0.4-2.0 mmol/L Random Vancomycin Level 18.7 mcg/ml Bedside Glucose 166 70-90 mg/dl Potassium Level 4.4 3.5-5.1 mmol/L
[2016-09-19] MEDS: HYDROCODONE/ACETAMI 10/325 TAB PO PRN (21:11)
[2016-09-20] VITALS (9 sets, daily range): BP systolic 81–107; BP diastolic 43–71; PULSE 79–87; TEMP 36.4–37.1; O2SAT 91–100
[2016-09-20] MEDS: SODIUM CHLORIDE 0.9% 1000ML 1,000 ML IV SCH ×2 (00:48→21:49)
[2016-09-20] MEDS: PIPERACILL/TAZOBAC IV 4.5 GM in DEXTROSE 5% 100ML IV SCH ×2 (03:48→15:35)
[2016-09-20] MEDS: HYDROCODONE/ACETAMI 10/325 TAB PO PRN (04:59)
[2016-09-20] MEDS: INSULIN ASPART 100 UNITS/ML 3 ML PEN SC SCH ×4 (07:30→20:40)
[2016-09-20] MEDS: OMEGA-3 (PURIFIED FISH OIL) 1 GM CAP PO SCH ×2 (07:37→20:38)
[2016-09-20] MEDS: PANTOprazole SOD 40 MG TAB PO SCH (07:38)
[2016-09-20] MEDS: DILTIAZEM HCL 120 MG CAPCR PO SCH (07:38)
[2016-09-20] MEDS: MAGNESIUM OXIDE 400 MG TAB PO SCH (07:39)
[2016-09-20] MEDS: NEPHROCAPS PO SCH (07:39)
[2016-09-20] MEDS: ATORVASTATIN 20 MG TAB PO SCH (07:39)
[2016-09-20] MEDS: MUPIROCIN 2% OINT 22 GM TUBE EXT SCH ×2 (07:40→20:37)
[2016-09-20 08:53] LABS: CREATININE 6.4 mg/dl (0.60-1.20)
[2016-09-20 08:58] LABS: BUN/CREATININE RATIO 8.2 (10-20); CALCIUM 8.7 mg/dl (8.5-10.1); CREATININE 6.3 mg/dl (0.60-1.20); MAGNESIUM 2.5 mg/dl (1.8-2.4); POTASSIUM 4.7 mmol/L (3.5-5.1)
--- NOTE | 2016-09-20 10:51 | Medical Consult ---
Consultation Date of Consultation: Sep 20, 2016. Attending Physician: Low Jones MD Reason for Consultation: Bacteremia, left foot infection History of Present Illness Patient is a 76 yo female with history of IDDM, ESRD on hemodialysis with left upper arm AV fistula, right BKA, Left foot with partial toe amputations, and stroke who presented to [facility] after transfer from [facility] due to bacteremia. I spoke with the microbiologist at [facility] and confirmed that her blood cultures from initial draw prior to transfer were growing MRSA. Her repeat blood cultures here are growing staph aureus with sensitivities pending. The microbiologist stated that this patient has had MRSA in her blood stream on previous occasions as well. Prior to admission, the patient was very fatigued and experiencing worsening pain in her buttocks and her left foot. She states that she has had her sacral decubitus ulcerations for "multiple years", but they recently got worse when she was placed on a square bed joseph at [facility] for an extended time. She also states that her left foot was anticipated to have further amputation completed due to lack of blood flow, but this has been postponed. I reviewed vascular surgery opinion during this admission and it is felt that the patient would benefit from outpatient vascular follow up rather than intervention now. On admission here, the patient' s WBC count was 21.01. Her potassium was 6.5, and her troponin was also elevated. MRSA nasal swab was positive for MRSA. The patient was placed on IV Vancomycin and Zosyn. Foot X-Ray of the left foot showed osteopenia, arthritic change, heel spurs, and hammertoe deformities as well as diffuse mild soft tissue swelling in the foot. Arterial Doppler of the left lower extremity showed moderate atheromatous changes. Her wound images were all reviewed by myself today. It was noted that her left 5th toe has a chronic appearing ulceration between the toe and the area where her 4th toe amputation was completed. There are also multiple other chronic appearing ulcerations with eschar of the left heel, lateral left foot, and toes. She also has what appears to be a relatively superficial sacral decubitus ulceration with moderate erythema of the surrounding area. Past Medical/Surgical History Medical Problems: (1) Altered mental status (2) Anemia (3) CVA (cerebral vascular accident) (4) Diabetes mellitus, insulin dependent (IDDM), controlled (5) ESRD (end stage renal disease) (6) GERD (gastroesophageal reflux disease) (7) HTN (hypertension) (8) Hyperkalemia Surgical Problems: (1) Hx of CABG (2) Right BKA Family History Noncontributory d/t age Noncontributory Social History Smoking Status: Never Smoker Alcohol Use: none Allergies Coded Allergies: Allopurinol (Unverified Allergy, Unknown, HIVES, 09/18/16) unknown reaction Cyclobenzaprine (Unverified Allergy, Unknown, DELIRIUM, 09/18/16) Sulfamethoxazole w/Trimethoprim (Unverified Allergy, Unknown, DELIRIUM, ) Home Medications Reported Home Medications Medications Dose Route/Sig Max Daily Dose Days Date Category Dose Instructions Bactroban 2% (Mupirocin) 30 Gm Cr 1 Appln EXT BID 09/18/16 Reported Lynden 10MG/325MG (Acetaminophen/Hydrocodone Bitart) Tab 1 Tab PO TID PRN 30 09/18/16 Reported PRN PAIN Humulin R (Insulin Human Regular) 1 Ea Inj 09/18/16 Reported Nephrocaps (Vitamin B Complex/Vit C/Folic Acid) Cap 1 Cap PO DAILY 30 09/18/16 Reported Silenor (Doxepin Hcl (Sleep)) 3 Mg Tab 3 Mg PO HS 09/18/16 Reported Trazodone HCl 100 Mg Tab 150 Mg PO HS 09/18/16 Reported Prilosec (Omeprazole) 20 Mg Cap 20 Mg PO DAILY 09/18/16 Reported [place]-3 (Isvof-8-Zbsa Ethyl Esters) 1 Cap Cap 1 Cap PO BID 30 09/18/16 Reported Mag-Ox (Magnesium Oxide) 400 Mg Tab 400 Mg PO DAILY 09/18/16 Reported Diltiazem Hcl Er (Diltiazem Hcl Coated Beads) 120 Mg Cap 1 Cap PO DAILY 90 09/18/16 Reported Lipitor (Atorvastatin Calcium) 20 Mg Tab 1 Tab PO DAILY 30 09/18/16 Reported [lovaza ] 1 Gm PO BID 09/18/16 Reported Current Inpatient Medications Current Inpatient Medications Medications (Trade) Dose Ordered Sig/Herlinda Route Start Time Stop Time Status Last Admin Dose Admin Acetaminophen (Tylenol Tab) 650 mg Q4H PRN PO 09/18/16 15:00 10/18/16 14:59 Ondansetron HCl (Zofran Inj) 4 mg Q6H PRN IV 1/17/17 15:00 10/18/16 14:59 Nitroglycerin (Nitrostat Tab) 0.4 mg UD PRN SL 09/18/16 15:00 10/18/16 14:59 Vancomycin HCl (Consult) 1 ea UD PRN N/A 09/18/16 15:37 10/18/16 15:36 Atorvastatin Calcium (Lipitor Tab) 20 mg DAILY PO 09/19/16 09:00 10/19/16 08:59 09/20/16 07:39 20 MG Diltiazem HCl (Cardizem Cd Cap) 120 mg DAILY PO 09/19/16 09:00 10/19/16 08:59 09/20/16 07:38 120 MG Acetaminophen/ Hydrocodone Bitart (Lynden 10/325 Tab) 1 tab TID PRN PO 09/18/16 15:45 10/02/16 15:44 09/20/16 04:59 1 TAB Magnesium Oxide (Mag-Ox Tab) 400 mg DAILY PO 09/19/16 09:00 10/19/16 08:59 09/20/16 07:39 400 MG Fish Oil ([place]-3 (Purified Fish Oil) Cap) 1 gm BID PO 09/18/16 21:00 10/18/16 20:59 09/20/16 07:37 1 GM Trazodone HCl (Desyrel Tab) 150 mg HS PO 09/18/16 21:00 10/18/16 20:59 Future Hold Vitamin B Complex/ Vit C/Folic Acid (Nephrocaps) 1 cap DAILY PO 09/19/16 09:00 10/19/16 08:59 09/20/16 07:39 1 CAP Mupirocin (Bactroban 2% Oint) 1 appln BID EXT 09/18/16 21:00 10/18/16 20:59 09/20/16 07:40 1 APPLN Pantoprazole Sodium (Protonix Tab) 40 mg DAILY PO 09/19/16 09:00 10/19/16 08:59 09/20/16 07:38 40 MG Insulin Aspart (novoLOG ASPART) SLIDING SCALE If C... ACHS SC 09/18/16 16:15 10/18/16 16:14 09/19/16 16:51 4 UNITS Glucose (Glucose 40% Gel) 15-30 GRAMS 15 GRAMS... UD PRN PO 09/18/16 15:45 10/18/16 15:44 Glucose (Glucose Chew Tab) 4-8 Tablets 4 Tabl... UD PRN PO 09/18/16 15:45 10/18/16 15:44 Dextrose (Dextrose 50% 50ML Syringe) 25-50ML OF 50% DW IV FOR... UD PRN IV 09/18/16 15:45 10/18/16 15:44 Glucagon (Glucagon Inj) 1 mg UD PRN SQ 09/18/16 15:45 10/18/16 15:44 Miscellaneous Information (Consult Glycemic Management Pharmacy) 1 ea UD PRN N/A 09/18/16 16:12 10/18/16 16:11 Miscellaneous Information (Order Awaiting Action) 1 ea QS N/A 09/19/16 00:00 10/19/16 00:00 Piperacillin Sod/ Tazobactam Sod (Consult) 1 ea UD PRN N/A 09/18/16 16:45 10/18/16 16:44 Atropine Sulfate 0.5 mg 0.5 mg UD PRN IV 09/18/16 20:45 10/18/16 20:44 Piperacillin Sod/ Tazobactam Sod 4.5 gm/Dextrose 120 ml @ 30 mls/hr Q12H IV 09/19/16 04:00 09/29/16 03:59 09/20/16 03:48 30 MLS/HR Acetaminophen 650 mg/Empty Bag 65 ml @ 260 mls/hr Q6H PRN IV 09/19/16 04:00 10/19/16 03:59 09/19/16 04:22 260 MLS/HR Sodium Chloride (Nss 1000ml) 1,000 ml @ 50 mls/hr Q20H IV 09/19/16 09:30 10/19/16 09:29 09/20/16 00:48 50 MLS/HR Review of Systems Constitutional: + fatigue, + fever, + weakness Eyes: No worsening of vision ENT: No hearing loss Respiratory: No cough, No shortness of breath Cardiovascular: No chest pain, No palpitations Abdomen: No diarrhea, No nausea, No pain, No vomiting Musculoskeletal: + problem reported (left foot pain especially heel and lateral left foot. Right BKA), + swelling, No muscle pain Genitourinary - Female: + problem reported (anuria due to dialysis) Integumentary: + new/changing skin lesions (sacral decubitus ulceration- chronic), No itch, No rash Physical Exam Date Time Temp Pulse Resp B/P Pulse Ox O2 Delivery O2 Flow Rate FiO2 09/20/16 08:00 Room Air 09/20/16 07:45 36.4 85 16 89/50 92 Room Air 09/20/16 04:00 Room Air 09/20/16 03:35 36.7 79 16 89/54 98 Nasal Cannula 2.0 09/20/16 00:00 Nasal Cannula 2.0 09/20/16 00:00 80 09/19/16 22:50 36.8 81 20 86/46 99 Nasal Cannula 3.0 09/19/16 20:00 Room Air 09/19/16 19:59 36.6 71 18 103/43 100 2.0 09/19/16 16:00 Nasal Cannula 2.0 09/19/16 15:42 36.5 69 18 95/36 100 2.0 09/19/16 12:00 Nasal Cannula 2.0 09/19/16 11:22 36.5 68 20 88/45 99 Nasal Cannula 2.0 General Appearance: WD/WN, no apparent distress Head: normocephalic, atraumatic, + pertinent finding (alopecia) Eyes: normal inspection, sclerae normal ENT: hearing grossly normal Neck: supple, trachea midline Respiratory/Chest: chest non-tender, lungs clear, no respiratory distress, no accessory muscle use Cardiovascular: regular rate, rhythm, + systolic murmur, + pertinent finding ( skipped beats) Abdomen/GI: normal bowel sounds, non tender, soft Back: normal inspection, no CVA tenderness Extremities/Musculoskelatal: no calf tenderness, normal capillary refill, + pertinent finding (Right BKA. Left foot with multiple chronic appearing ulcerations between 5th toe and remaining area of 4th toe. Left chronic heel ulceration. No erythema surrounding this area currently. ) Neurologic/Psych: alert, normal mood/affect Skin: warm/dry, no rash, + pertinent finding (ulcerations as described above) Lymphatic: no adenopathy Laboratory Results Arterial Doppler ultrasound left lower extremity CLINICAL HISTORY: Left leg pain. Suspected peripheral vascular disease. COMPARISON STUDY: No previous studies for comparison. FINDINGS: The examination is somewhat limited in that it was performed in a portable fashion There is biphasic flow within the common femoral artery. There is biphasic flow within the proximal left superficial femoral artery. There is monophasic flow within the mid to distal superficial femoral artery. There is a biphasic popliteal waveform. There are monophasic anterior tibial, posterior tibial, and peroneal waveforms. Ankle-brachial indices were not obtained, as examination was performed in a portable fashion. IMPRESSION: 1. Moderate diffuse atheromatous changes. 2. No focal arterial conclusions were demonstrated to 3. If the patient becomes clinically stable enough to come to the department, then ankle brachial indices could be obtained. LEFT FOOT 3 VIEWS CLINICAL HISTORY: Left foot infection. FINDINGS: 3 portable views the left foot are obtained. No prior studies are available for comparison at the time of dictation. The skeletal structures are osteopenic. The examination is degraded by hammertoe deformities involving all digits. No fracture is identified. No bony erosion or periostitis is seen. Arthritic change is seen throughout the intertarsal joints and involving the tarsometatarsal joints. There are large dorsal and plantar calcaneal enthesophytes. Degenerative spurring is seen from the anterior tibial plafond and along the dorsal aspect of the tarsal bones. Mild diffuse soft tissue edema is present throughout the foot. There is advanced atherosclerotic calcification of the regional arteries. IMPRESSION: 1. No acute bony abnormality is seen in the left foot. 2. Osteopenia, arthritic change, heel spurs, and hammertoe deformities as above. 3. Mild diffuse soft tissue edema is noted throughout the foot. Correlate clinically for evidence of cellulitis. RUN DATE: 09/20/16 [facility] LAB PAGE 1 RUN TIME: 0822 Specimen Inquiry PATIENT: BOBY BARRETO LOC: [place] U # : [id number] AGE/SX: 76/F ROOM: [facility] REG : 09/18/[address]: Low Jones MD : 1940 BED: 1 DIS : STATUS: ADM IN TLOC: SPEC #: [id number] LAUREN: 09/18/16 STATUS: RES REQ #: [id number] RECD: 09/18/[address]: Nelida Hassan PA-C SOURCE: BLOOD ENTR: 09/18/16-[address]: Marley Augustine DO SPDESC: India Mclaughlin DO ORDERED: BLOOD CULTURE Procedure Result Verified Site BLD CULT Preliminary 09/20/16-0832 Organism 1 STAPHYLOCOCCUS AUREUS SENS SENSITIVITY TO FOLLOW Phoned Positive Blood Culture Gram Stain Report to NKECHI CALDERON on 09/19/16 At 1118 By EVANGELISTA. Results were verbalized back to EVANGELISTA. Item Value Date Time Blood Culture - Preliminary Resulted 09/18/16 1551 Blood Staphylococcus Aureus Blood Culture - Preliminary Resulted 09/18/16 1540 Blood Staphylococcus Aureus MRSA DNA Surveillance Screen - Final Complete 09/18/16 0000 Nasal Specimen Positive for MRSA by DNA Probe Last 24 Hours Test 09/19/16 11:17 09/19/16 18:20 09/19/16 19:20 09/20/16 07:23 Bedside Glucose 166 mg/dl Potassium Level 4.4 mmol/L Magnesium Level 2.4 mg/dl Troponin I 0.300 ng/ml Vancomycin Level Trough 18.6 mcg/ml Test 09/20/16 07:46 Sodium Level 133 mmol/L Potassium Level 4.7 mmol/L Chloride Level 97 mmol/L Carbon Dioxide Level 22 mmol/L Anion Gap 14.0 mmol/L Blood Urea Nitrogen 52 mg/dl Creatinine 6.30 mg/dl Est Creatinine Clear Calc Drug Dose 6.2 ml/min Estimated GFR () 6.8 Estimated GFR (Non- 5.8 BUN/Creatinine Ratio 8.2 Random Glucose 89 mg/dl Calcium Level 8.7 mg/dl Magnesium Level 2.5 mg/dl Assessment & Plan Patient with left foot chronic ulcerations, sacral decubitus ulceration, left upper extremity AV fistula, and MRSA bacteremia. She is currently on IV Vancomycin and Zosyn. Will continue broad spectrum antibiotic pending culture results. Ordered a culture of her sacral decubitus ulceration. With the amount of surrounding erythema, it seems more likely that her sacral decubitus ulcer may be the source of her infection though her left foot continues to be high on the list as well. Because she continues to have bacteremia, the patient will also need an echocardiogram. Will order this and repeat blood cultures as well. We will continue to follow this patient and adjust abx as able. Plan: 1. Continue broad spectrum abx 2. Wound culture sacral decubitus 3. Repeat blood cultures 4. Echo PROVIDER ADDENDUM: Patient examined and reviewed with Ms. Chacon. Agree with above assessment. Awaiting further imaging of sacral area. Continue present antibiotics.
--- NOTE | 2016-09-20 11:01 | ECHOCARDIOGRAM REPORT ---
*NOTICE TO RECEIVING [employer] This information is strictly Confidential and protected under [place] law. [place] law prohibits you from making any further disclosure of this information unless further disclosure is expressly permitted by the written consent of the person to whom it pertains or is authorized by law. A general authorization for the release of medical or other information is not sufficient for this purpose. Hospital accepts no responsibility if the information is made available to any other person, INCLUDING THE PATIENT. Interpretation Summary * Name: BOBY BARRETO Study Date: 09/20/2016 06:53 AM BP: 89/54 mmHg * Patient Location: C.2E\S\E201\S\1 HR: 79 * : 1940 (M/d/yyyy) Gender: Female Height: 60 in * Age: 76 yrs Ethnicity: CA Weight: 138 lb * Ordering Physician: Low Jones * Performed By: Gail Hassan RDCS * * Reason For Study: Bradycardia * BSA: 1.6 m2 * The study was technically adequate. * There is no comparison study available. * -- Conclusions -- * The rhythm is atrial fibrillation. * Ejection Fraction = 50-55%. * The apical septum is thinned and akinetic. * The base inferoseptum is akinetic. * The mid inferoseptum is hypokinetic. * The apical inferior wall is severly hypokinetic to akinetic. * The right ventricle is mildly dilated. * The right ventricular systolic function is qualitatively normal. * The aortic valve is moderately calcified. * Mild valvular aortic stenosis. * There is mild to moderate mitral regurgitation. * There is severe tricuspid regurgitation. * The estimated systolic PAP is 83mmHg. * Dilated inferior vena cava with reduced collapsability with sniff indicates an elevated right atrial pressure of 15 mmHg Procedure Details * A complete two-dimensional transthoracic echocardiogram was performed (2D, M-mode, Doppler and color flow Doppler). Left Ventricle * The left ventricle is normal in size. * The rhythm is atrial fibrillation. * There is normal left ventricular wall thickness. * Ejection Fraction = 50-55%. * Left ventricular systolic function is normal. * Septal motion is consistent with post-operative state. * The apical septum is thinned and akinetic. The base inferoseptum is akinetic. The mid inferoseptum is hypokinetic. The apical inferior wall is severly hypokinetic to akinetic. Right Ventricle * The right ventricle is mildly dilated. * The right ventricular systolic function is qualitatively normal. Atria * The left atrium is severely dilated. * The right atrium is moderately dilated. * There is no evidence of atrial septal defect, but resolution does not allow assessment for a patent foramen ovale. Mitral Valve * The mitral valve is normal. * The mitral valve leaflets appear thickened, but open well. * There is severe mitral annular calcification. * There is no mitral valve stenosis. * There is mild to moderate mitral regurgitation. Tricuspid Valve * The tricuspid valve is normal. * There is no tricuspid stenosis. * There is severe tricuspid regurgitation. * The estimated systolic PAP is 83mmHg. Aortic Valve * The aortic valve is trileaflet. * The aortic valve is moderately calcified. * Mild valvular aortic stenosis. * There is no significant aortic regurgitation. Pulmonic Valve * The pulmonary valve is inadequately visualized, but the Doppler data is adequate for interpretation. * There is no pulmonic valvular stenosis. * Mild pulmonic valvular regurgitation. Great Vessels * The aortic root and proximal ascending aorta are normal sized. Pericardium/Pleural * There is no pericardial effusion. Great Vessels * Dilated inferior vena cava with reduced collapsability with sniff indicates an elevated right atrial pressure of 15 mmHg Left Ventricular Diastolic Function * Abnormal diastolic function. MMode 2D Measurements and Calculations IVSd 1.4 cm IVSs 1.5 cm LVIDd 3.7 cm LVIDs 2.7 cm LVPWd 1.5 cm LVPWs 2.1 cm IVS/LVPW 0.91 FS 26.6 % EDV(Teich) 57.3 ml ESV(Teich) 27.0 ml EF(Teich) 52.9 % EDV(cubed) 49.8 ml ESV(cubed) 19.7 ml EF(cubed) 60.5 % % IVS thick 6.2 % % LVPW thick 35.8 % LV mass(C)d 199.6 grams LV mass(C)dI 125.2 grams/m\S\2 LV mass(C)s 189.1 grams LV mass(C)sI 118.6 grams/m\S\2 SV(Teich) 30.3 ml SI(Teich) 19.0 ml/m\S\2 SV(cubed) 30.1 ml SI(cubed) 18.9 ml/m\S\2 LA dimension 4.9 cm LVOT diam 1.9 cm LVOT area 2.7 cm\S\2 LVAd ap4 22.3 cm\S\2 LVLd ap4 6.8 cm EDV(MOD-sp4) 62.0 ml EDV(sp4-el) 62.4 ml LVAs ap4 14.4 cm\S\2 LVLs ap4 6.3 cm ESV(MOD-sp4) 28.2 ml ESV(sp4-el) 27.8 ml EF(MOD-sp4) 54.5 % EF(sp4-el) 55.3 % LVAd ap2 16.0 cm\S\2 LVLd ap2 6.3 cm EDV(MOD-sp2) 34.8 ml EDV(sp2-el) 34.5 ml LVAs ap2 9.7 cm\S\2 LVLs ap2 5.9 cm ESV(MOD-sp2) 14.6 ml ESV(sp2-el) 13.7 ml EF(MOD-sp2) 58.0 % EF(sp2-el) 60.3 % LVLd %diff -7.35 % EDV(MOD-bp) 48.1 ml LVLs %diff -6.66 % ESV(MOD-bp) 20.9 ml EF(MOD-bp) 56.6 % SV(MOD-sp4) 33.8 ml SI(MOD-sp4) 21.2 ml/m\S\2 SV(MOD-sp2) 20.2 ml SI(MOD-sp2) 12.7 ml/m\S\2 SV(MOD-bp) 27.2 ml SI(MOD-bp) 17.1 ml/m\S\2 SV(sp4-el) 34.5 ml SI(sp4-el) 21.7 ml/m\S\2 SV(sp2-el) 20.8 ml SI(sp2-el) 13.1 ml/m\S\2 Doppler Measurements and Calculations MV E max jerome 140.6 cm/sec MV dec time 0.23 sec Ao V2 max 205.1 cm/sec Ao max PG 16.8 mmHg Ao max PG (full) 13.3 mmHg Ao V2 mean 128.8 cm/sec Ao mean PG 7.8 mmHg Ao mean PG (full) 6.1 mmHg Ao V2 VTI 41.0 cm PENELOPE(I,A) 1.3 cm\S\2 PENELOPE(I,D) 1.3 cm\S\2 PENELOPE(V,A) 1.2 cm\S\2 PENELOPE(V,D) 1.2 cm\S\2 LV V1 max PG 3.5 mmHg LV V1 mean PG 1.7 mmHg LV V1 max 94.1 cm/sec LV V1 mean 59.5 cm/sec LV V1 VTI 19.1 cm SV(LVOT) 51.8 ml SI(LVOT) 32.5 ml/m\S\2 PA V2 max 95.3 cm/sec PA max PG 3.6 mmHg PI max jerome 236.5 cm/sec PI max PG 22.4 mmHg PI dec slope 535.8 cm/sec\S\2 PI P1/2t 129.3 msec TR max jerome 351.6 cm/sec
--- NOTE | 2016-09-20 11:29 | Pharmacy Progress Note ---
Glycemic: Assessment & Plan Date of Service Sep 20, 2016. Assessment & Plan The patient received 13 units of insulin yesterday, with BSGs ranging from 131- 180 mg/dl. * Basal insulin: None required at this time. * Correctional Insulin: Novolog Correction per scale ACHS Goal Range: Low 120 mg/dL - High 160 mg/dL Correction Factor: 35 mg/dL/unit * Prandial insulin: Per carb ratio of 1 unit per 12 grams CHO consumed BSGs have been reasonable, no changes needed to inpatient regimen at this time. Pharmacy will continue to monitor patient daily and write orders per [facility] inpatient glycemic control protocol. Thanks. * Please note that the plan above was derived based on current level of insulin resistance and hospital stress. These recommendations are appropriate for inpatient admission only. Plan of care upon discharge will need to be reassessed to avoid potential outpatient hypo/hyperglycemia.
[2016-09-20 11:57] LABS: BASO % 0.1 %; BASO ABS # 0.02 K/uL (0-0.2); EOS % 0.9 %; HEMATOCRIT 25.4 % (37-47); IG% 0.8 %; LYMPH % 8.1 %; MEAN CELL VOLUME 94.8 fL (80-100); MEAN CORPUSCULAR HEMOGLOBIN 31.3 pg (25-34); MEAN PLATELET VOLUME 10.4 fL (7.4-10.4); MONO % 6.4 %; NEUT % 83.7 %; PLATELET COUNT 121 K/uL (130-400); RED BLOOD COUNT 2.68 M/uL (4.2-5.4); WHITE BLOOD COUNT 13.59 K/uL (4.8-10.8)
[2016-09-20 12:00] LABS: MEAN CORPUSCULAR HGB CONC 33.1 g/dl (32-36)
--- NOTE | 2016-09-20 12:02 | Pharmacy Progress Note ---
Pharmacy Antibiotic Prog Note Date of Service: Sep 20, 2016. Subjective: The patient is currently receiving IV Vancomycin based on random levels due to CKD/HD. The patient is currently on day #3 of IV therapy. Objective: Height (Feet): 5 Height (Inches): 0.00 Weight (Kilograms): 65.000 Levels: Item Value Date Time Random Vancomycin Level 14.4 mcg/ml 09/18/16 1715 Random Vancomycin Level 18.7 mcg/ml 09/19/16 1005 Vancomycin Level Trough 18.6 mcg/ml 09/19/16 1920 Lab Results (24hrs): Laboratory Tests Test 09/20/16 07:46 09/20/16 11:00 BUN/Creatinine Ratio 8.2 Blood Urea Nitrogen 52 mg/dl Creatinine 6.30 mg/dl Micro Results: Item Value Date Time MRSA DNA Surveillance Screen - Final Complete 09/18/16 0000 Nasal Specimen Positive for MRSA by DNA Probe Blood Culture - Preliminary Resulted 09/18/16 1540 Blood Staphylococcus Aureus Blood Culture - Preliminary Resulted 09/18/16 1551 Blood Staphylococcus Aureus Gram Stain Received 09/20/16 0000 Ulcer Sacrum Pending Blood Culture Larisa Batch 09/20/16 1051 Blood Pending Blood Culture Larisa Batch 09/20/16 1051 Blood Pending Recent Pertinent Medications: Item Value Date Time Vancomycin HCl 265 ml @ 125 mls/hr 09/20/16 2200 750 mg/Sodium TODAY@2200/IV Chloride Vancomycin HCl 265 ml @ 125 mls/hr 09/18/16 2200 750 mg/Sodium TODAY@2200/IV 09/18/16 2237 Chloride Vancomycin 1gm IV x [address] [facility] 09/18/16 1037 Item Value Date Time Piperacillin Sod/ 120 ml @ 30 mls/hr 09/19/16 0400 Tazobactam Sod Q12H/IV 09/20/16 0348 4.5 gm/Dextrose Piperacillin Sod/ 115 ml @ 200 mls/hr 09/18/16 1645 Tazobactam Sod NOW ONCE/IV 09/18/16 2149 3.375 gm/Dextrose Assessment & Plan: Vancomycin * 76 yo female with chronic left foot ulcerations, sacral decubitus ulceration & staph bacteremia tx'd here from [facility] 09/18/16 * pt with HD schedule of tue/thur/sat, last session yesterday evening ending ~ 2100 * goal trough level: 15-20mcg/mL * next HD scheduled for today ~1500 * re-dose with Vancomycin 750mg IV x 1 after HD complete * random levels ordered with AM labs x 2 days to assess pt clearance in between HD sessions Pharmacy will continue to follow and will adjust dose/frequency as necessary. Thank you
[2016-09-20 12:19] LABS: COMPLETE YES
--- NOTE | 2016-09-20 14:02 | Progress Note ---
Progress Note No acute intervention required at this time. Would have patient follow up with her vascular surgeon or the vascular surgeons in [place] after d/c. Thank you very much for letting me participate in the care of this patient.
--- NOTE | 2016-09-20 19:25 | Progress Note ---
Internal Med Progress Note Date of Service: Sep 20, 2016. Provider Documentation: SUBJECTIVE: resting comfortably denies any pain eating ok denies diarrhea afebrile hemodynamics stable OBJECTIVE: Vital Signs-as noted below Exam: General-alert and oriented ENT-normal hearing Neck-no neck masses Lungs-cta b/l no wheezing or crackles Heart-s1 and s2 heard regular rate and rhythm no murmurs Abdomen-soft bowel sounds present non tender no distension Extremities-no erythema left foot in dressing Skin sacral decubitus ulcer stage 2 Neuro-alert and awake moves extremities Lab data as noted below. ASSESSMENT & PLAN: 76 year old is seen as a direct admission from [place] ED after presenting for AMS and missing dialysis HYPERKALEMIA - ESRD K 6.3 on presentation s/p dialysis appreciate nephrology inputs resolved HYPONATREMIA -129, on presentation na 133 today. Sepsis Bacteremia left lower extremity wounds sacral decubitus ulcer stage 2 on iv vanco and zosyn blood cx gm positive cocci lactic acid normal gentle fluids for hypotension ID consulted and appreciate input ELEVATED TROPONIN -0.11 in [place] asymptomatic likely secondary to ESRD serial Juanita will f/u echo- no old echo to compare Bradycardia on and off diltiazem held [facility] f/u echo will consider cardiology consult if persist stable RIGHT BKA. Left foot wounds abx as above appreciate vascular surgery inputs. GERD PPI HTN diltiazem held for bradycardia will monitor IDDM on iss hba1c 5.6 ANEMIA OF CHRONIC DISEASE Hgb 9 s/p 1 unit PRBCs at outpatient hospital will follow h and h 8.4 today H/O CVA per patient's daughter on Statin DEMENTIA per patient's daughter, mild dementia DVT PROPHYLAXIS: will not anticoagulated d/t anemia, and SCDs contraindicated d/ t vascular disease CODE STATUS: Level 3 per my discussion with the patient's daughter DISPOSITION monitor in tele Vital Signs: Date Time Temp Pulse Resp B/P Pulse Ox O2 Delivery O2 Flow Rate FiO2 09/20/16 16:16 36.9 84 24 107/71 94 Room Air 09/20/16 16:00 100 Nasal Cannula 2.0 09/20/16 15:58 36.7 84 18 107/71 100 Nasal Cannula 2.0 09/20/16 15:09 Room Air 09/20/16 13:02 Room Air 09/20/16 11:29 36.6 85 20 102/50 94 Room Air 09/20/16 11:18 Room Air 09/20/16 08:00 Room Air 09/20/16 07:45 36.4 85 16 89/50 92 Room Air 09/20/16 04:00 Room Air 09/20/16 03:35 36.7 79 16 89/54 98 Nasal Cannula 2.0 09/20/16 00:00 Nasal Cannula 2.0 09/20/16 00:00 80 09/19/16 22:50 36.8 81 20 86/46 99 Nasal Cannula 3.0 09/19/16 20:00 Room Air 09/19/16 19:59 36.6 71 18 103/43 100 2.0 Lab Results: Results Past 24 Hours Test 09/19/16 19:20 09/19/16 20:33 09/20/16 06:42 09/20/16 07:46 Range/Units Vancomycin Level Trough 18.6 SEE COMMENT mcg/ml Bedside Glucose 131 101 70-90 mg/dl Sodium Level 133 136-145 mmol/L Potassium Level 4.7 3.5-5.1 mmol/L Chloride Level 97 98-107 mmol/L Carbon Dioxide Level 22 21-32 mmol/L Anion Gap 14.0 3-11 mmol/L Blood Urea Nitrogen 52 7-18 mg/dl Creatinine 6.30 0.60-1.20 mg/dl Est Creatinine Clear Calc Drug Dose 6.2 ml/min Estimated GFR () 6.8 Estimated GFR (Non- 5.8 BUN/Creatinine Ratio 8.2 10-20 Random Glucose 89 70-99 mg/dl Calcium Level 8.7 8.5-10.1 mg/dl Magnesium Level 2.5 1.8-2.4 mg/dl Test 09/20/16 10:57 09/20/16 11:15 09/20/16 16:43 Range/Units Bedside Glucose 166 143 70-90 mg/dl White Blood Count 13.59 4.8-10.8 K/uL Red Blood Count 2.68 4.2-5.4 M/uL Hemoglobin 8.4 12.0-16.0 g/dL Hematocrit 25.4 37-47 % Mean Corpuscular Volume 94.8 80-100 fL Mean Corpuscular Hemoglobin 31.3 25-34 pg Mean Corpuscular Hemoglobin Concent 33.1 32-36 g/dl Platelet Count 121 130-400 K/uL Mean Platelet Volume 10.4 7.4-10.4 fL Neutrophils (%) (Auto) 83.7 % Lymphocytes (%) (Auto) 8.1 % Monocytes (%) (Auto) 6.4 % Eosinophils (%) (Auto) 0.9 % Basophils (%) (Auto) 0.1 % Neutrophils # (Auto) 11.37 1.4-6.5 K/uL Lymphocytes # (Auto) 1.10 1.2-3.4 K/uL Monocytes # (Auto) 0.87 0.11-0.59 K/uL Eosinophils # (Auto) 0.12 0-0.5 K/uL Basophils # (Auto) 0.02 0-0.2 K/uL RDW Standard Deviation 61.2 36.4-46.3 fL RDW Coefficient of Variation 17.5 11.5-14.5 % Immature Granulocyte % (Auto) 0.8 % Immature Granulocyte # (Auto) 0.11 0.00-0.02 K/uL Red Blood Cell Morphology Unremarkable Microbiology Results 09/20/16 Blood Culture, Received Pending 09/20/16 Blood Culture, Received Pending 09/20/16 Gram Stain, Received Pending 09/20/16 Wound Culture, Received Pending
--- NOTE | 2016-09-20 21:32 | Nephrology Progress Note ---
Nephrology Progress Note Date of Service: Sep 20, 2016. Subjective 76 yo female with dialysis t-h-s at the [facility] unit followed by Dr. Harrington. has significant vascular disease. has wound on right foot which is not healing well. presented with sepsis and hyperkalemia. pt with staph bacteremia. pt doing much better. more alert. eating well. bp was low earlier in the day but has improved. on low rate of iv fluids and tolerating them well. Objective Date Time Temp Pulse Resp B/P Pulse Ox O2 Delivery O2 Flow Rate FiO2 09/20/16 20:09 37.1 87 26 100/58 100 Nasal Cannula 3.0 09/20/16 16:16 36.9 84 24 107/71 94 Room Air 09/20/16 16:00 100 Nasal Cannula 2.0 09/20/16 15:58 36.7 84 18 107/71 100 Nasal Cannula 2.0 09/20/16 15:09 Room Air 09/20/16 13:02 Room Air 09/20/16 11:29 36.6 85 20 102/50 94 Room Air 09/20/16 11:18 Room Air 09/20/16 08:00 Room Air 09/20/16 07:45 36.4 85 16 89/50 92 Room Air 09/20/16 04:00 Room Air 09/20/16 03:35 36.7 79 16 89/54 98 Nasal Cannula 2.0 09/20/16 00:00 Nasal Cannula 2.0 09/20/16 00:00 80 09/19/16 22:50 36.8 81 20 86/46 99 Nasal Cannula 3.0 Physical Exam: General-aaox3, more awake today Eyes-no scleral icterus ENT-mmm Neck-supple Lungs-clear Heart-irregular Abdomen-bs+ s/nt/nd Extremities-right bka, left foot with open wound Neuro-nonfocal Current Inpatient Medications Medications (Trade) Dose Ordered Sig/Herlinda Route Start Time Stop Time Status Last Admin Dose Admin Acetaminophen (Tylenol Tab) 650 mg Q4H PRN PO 09/18/16 15:00 10/18/16 14:59 Ondansetron HCl (Zofran Inj) 4 mg Q6H PRN IV 09/18/16 15:00 10/18/16 14:59 Nitroglycerin (Nitrostat Tab) 0.4 mg UD PRN SL 09/18/16 15:00 10/18/16 14:59 Vancomycin HCl (Consult) 1 ea UD PRN N/A 09/18/16 15:37 10/18/16 15:36 Atorvastatin Calcium (Lipitor Tab) 20 mg DAILY PO 09/19/16 09:00 10/19/16 08:59 09/20/16 07:39 20 MG Diltiazem HCl (Cardizem Cd Cap) 120 mg DAILY PO 09/19/16 09:00 10/19/16 08:59 09/20/16 07:38 120 MG Acetaminophen/ Hydrocodone Bitart ([place] 10/325 Tab) 1 tab TID PRN PO 09/18/16 15:45 10/02/16 15:44 09/20/16 04:59 1 TAB Magnesium Oxide (Mag-Ox Tab) 400 mg DAILY PO 09/19/16 09:00 10/19/16 08:59 09/20/16 07:39 400 MG Fish Oil ([place]-3 (Purified Fish Oil) Cap) 1 gm BID PO 09/18/16 21:00 10/18/16 20:59 09/20/16 20:38 1 GM Trazodone HCl (Desyrel Tab) 150 mg HS PO 09/18/16 21:00 10/18/16 20:59 Future Hold Vitamin B Complex/ Vit C/Folic Acid (Nephrocaps) 1 cap DAILY PO 09/19/16 09:00 10/19/16 08:59 09/20/16 07:39 1 CAP Mupirocin (Bactroban 2% Oint) 1 appln BID EXT 09/18/16 21:00 10/18/16 20:59 09/20/16 20:37 1 APPLN Pantoprazole Sodium (Protonix Tab) 40 mg DAILY PO 09/19/16 09:00 10/19/16 08:59 09/20/16 07:38 40 MG Insulin Aspart (novoLOG ASPART) SLIDING SCALE If C... ACHS SC 09/18/16 16:15 10/18/16 16:14 09/20/16 20:40 1 UNITS Glucose (Glucose 40% Gel) 15-30 GRAMS 15 GRAMS... UD PRN PO 1/17/17 15:45 10/18/16 15:44 Glucose (Glucose Chew Tab) 4-8 Tablets 4 Tabl... UD PRN PO 09/18/16 15:45 10/18/16 15:44 Dextrose (Dextrose 50% 50ML Syringe) 25-50ML OF 50% DW IV FOR... UD PRN IV 09/18/16 15:45 10/18/16 15:44 Glucagon (Glucagon Inj) 1 mg UD PRN SQ 09/18/16 15:45 10/18/16 15:44 Miscellaneous Information (Consult Glycemic Management Pharmacy) 1 ea UD PRN N/A 09/18/16 16:12 10/18/16 16:11 Miscellaneous Information (Order Awaiting Action) 1 ea QS N/A 09/19/16 00:00 10/19/16 00:00 Piperacillin Sod/ Tazobactam Sod (Consult) 1 ea UD PRN N/A 09/18/16 16:45 10/18/16 16:44 Atropine Sulfate 0.5 mg 0.5 mg UD PRN IV 09/18/16 20:45 10/18/16 20:44 Piperacillin Sod/ Tazobactam Sod 4.5 gm/Dextrose 120 ml @ 30 mls/hr Q12H IV 09/19/16 04:00 09/29/16 03:59 09/20/16 15:35 30 MLS/HR Acetaminophen 650 mg/Empty Bag 65 ml @ 260 mls/hr Q6H PRN IV 09/19/16 04:00 10/19/16 03:59 09/19/16 04:22 260 MLS/HR Sodium Chloride 1,000 ml @ 50 mls/hr Q20H IV 09/19/16 09:30 10/19/16 09:29 09/20/16 00:48 50 MLS/HR Vancomycin HCl/ Sodium Chloride (Vancomycin Inj/ Nss 250ml) 265 ml @ 125 mls/hr TODAY@2200 IV 09/20/16 22:00 09/21/16 04:00 Epoetin Edis (Procrit Inj) 10,000 units ONE ONCE IV. 09/21/16 08:00 09/21/16 08:01 Last 24 Hours Test 09/20/16 06:42 09/20/16 07:46 09/20/16 10:57 09/20/16 11:15 Bedside Glucose 101 mg/dl 166 mg/dl Sodium Level 133 mmol/L Potassium Level 4.7 mmol/L Chloride Level 97 mmol/L Carbon Dioxide Level 22 mmol/L Anion Gap 14.0 mmol/L Blood Urea Nitrogen 52 mg/dl Creatinine 6.30 mg/dl Est Creatinine Clear Calc Drug Dose 6.2 ml/min Estimated GFR () 6.8 Estimated GFR (Non- 5.8 BUN/Creatinine Ratio 8.2 Random Glucose 89 mg/dl Calcium Level 8.7 mg/dl Magnesium Level 2.5 mg/dl White Blood Count 13.59 K/uL Red Blood Count 2.68 M/uL Hemoglobin 8.4 g/dL Hematocrit 25.4 % Mean Corpuscular Volume 94.8 fL Mean Corpuscular Hemoglobin 31.3 pg Mean Corpuscular Hemoglobin Concent 33.1 g/dl Platelet Count 121 K/uL Mean Platelet Volume 10.4 fL Neutrophils (%) (Auto) 83.7 % Lymphocytes (%) (Auto) 8.1 % Monocytes (%) (Auto) 6.4 % Eosinophils (%) (Auto) 0.9 % Basophils (%) (Auto) 0.1 % Neutrophils # (Auto) 11.37 K/uL Lymphocytes # (Auto) 1.10 K/uL Monocytes # (Auto) 0.87 K/uL Eosinophils # (Auto) 0.12 K/uL Basophils # (Auto) 0.02 K/uL RDW Standard Deviation 61.2 fL RDW Coefficient of Variation 17.5 % Immature Granulocyte % (Auto) 0.8 % Immature Granulocyte # (Auto) 0.11 K/uL Red Blood Cell Morphology Unremarkable Test 09/20/16 16:43 09/20/16 20:30 Bedside Glucose 143 mg/dl 161 mg/dl Date/Time Source Procedure Growth Status 09/20/16 11:39 Blood Blood Culture Pending Received 09/20/16 11:15 Blood Blood Culture Pending Received 09/20/16 00:00 Ulcer Sacrum Gram Stain Pending Received 09/20/16 00:00 Ulcer Sacrum Wound Culture Pending Received Assessment & Plan ESRD-bp remained low today and currently on iv fluids with stable electrolytes. will plan on dialysis tomorrow for clearance of toxins and to help control potassium. Anemia of renal failure-continue procrit on dialysis for goal hg of 10 to 11
[2016-09-20] MEDS ORDERED: VANCOMYCIN INJ 750 MG in SODIUM CHLORIDE 0.9% 250ML 250 ML IV SCH (22:00)
[2016-09-21] VITALS (21 sets, daily range): BP systolic 71–105; BP diastolic 41–78; PULSE 66–96; TEMP 36.7–37; O2SAT 96–99
[2016-09-21] MEDS: PIPERACILL/TAZOBAC IV 4.5 GM in DEXTROSE 5% 100ML IV SCH ×2 (03:34→16:40)
[2016-09-21 06:29] LABS: HEMATOCRIT 22.9 % (37-47); MEAN CELL VOLUME 94.2 fL (80-100); MEAN CORPUSCULAR HEMOGLOBIN 31.3 pg (25-34); MEAN CORPUSCULAR HGB CONC 33.2 g/dl (32-36); PLATELET COUNT 121 K/uL (130-400); RED BLOOD COUNT 2.43 M/uL (4.2-5.4); WHITE BLOOD COUNT 11.77 K/uL (4.8-10.8)
[2016-09-21 07:12] LABS: CREATININE 6.9 mg/dl (0.60-1.20)
[2016-09-21] MEDS ORDERED: EPOETIN ALFA 10,000 UNITS/ML VIAL IV. ONE (08:00)
[2016-09-21] MEDS: ATORVASTATIN 20 MG TAB PO SCH (08:07)
[2016-09-21] MEDS: PANTOprazole SOD 40 MG TAB PO SCH (08:07)
[2016-09-21] MEDS: NEPHROCAPS PO SCH (08:07)
[2016-09-21] MEDS: OMEGA-3 (PURIFIED FISH OIL) 1 GM CAP PO SCH ×2 (08:07→20:22)
[2016-09-21] MEDS: MUPIROCIN 2% OINT 22 GM TUBE EXT SCH ×2 (08:08→20:21)
[2016-09-21] MEDS: INSULIN ASPART 100 UNITS/ML 3 ML PEN SC SCH ×4 (08:18→23:22)
[2016-09-21] MEDS: MAGNESIUM OXIDE 400 MG TAB PO SCH (09:00)
[2016-09-21] MEDS: DILTIAZEM HCL 120 MG CAPCR PO SCH (09:00)
--- NOTE | 2016-09-21 09:54 | Pharmacy Progress Note ---
Glycemic Control: Progress Nt Date of Service Sep 21, 2016. Scope Glycemic Pharmacist consulted by Nelida Hassan PA-C on 09/18/16 for glycemic control and to write orders per [facility] inpatient glycemic control protocol. Objective Accuchecks BSG (last 24hrs): Test 09/20/16 10:57 09/20/16 16:43 09/20/16 20:30 09/21/16 07:03 Bedside Glucose 166 mg/dl (70-90) 143 mg/dl (70-90) 161 mg/dl (70-90) 96 mg/dl (70-90) Laboratory Data (last 24hrs) Test 09/20/16 11:15 09/21/16 05:48 White Blood Count 13.59 K/uL 11.77 K/uL Red Blood Count 2.68 M/uL Hemoglobin 8.4 g/dL Hematocrit 25.4 % Mean Corpuscular Volume 94.8 fL Mean Corpuscular Hemoglobin 31.3 pg Mean Corpuscular Hemoglobin Concent 33.1 g/dl Platelet Count 121 K/uL Mean Platelet Volume 10.4 fL Neutrophils (%) (Auto) 83.7 % Lymphocytes (%) (Auto) 8.1 % Monocytes (%) (Auto) 6.4 % Eosinophils (%) (Auto) 0.9 % Basophils (%) (Auto) 0.1 % Neutrophils # (Auto) 11.37 K/uL Lymphocytes # (Auto) 1.10 K/uL Monocytes # (Auto) 0.87 K/uL Eosinophils # (Auto) 0.12 K/uL Basophils # (Auto) 0.02 K/uL Creatinine 6.90 mg/dl HbA1c: Test 09/19/16 02:46 Hemoglobin A1c 5.6 % (4.5-5.6) Recent Pertinent Medications Outpatient Anti-diabetic Regimen: * Humulin R sliding scale The patient is currently receiving: * Correctional Insulin: Novolog Correction per scale ACHS Goal Range: Low 120 mg/dL - High 160 mg/dL Correction Factor: 35 mg/dL/unit * Prandial insulin: Per carb ratio of 1 unit per 12 grams CHO consumed Risk Factors for Insulin Resistance: * Infection * Diet Assessment & Plan ASSESSMENT: * 76 yo diabetic F admitted for the treatment of cellulitis, currently on Vancomycin and Zosyn IV * For outpatient glycemic control, patient uses a Humulin R sliding scale * For the past 48 hours BSGs have been within or below goal range with small doses of Novolog (weight-based scale) * Since patient is ESRD on HD, I am going to loosen scale slightly to avoid any hypoglycemic events PLAN FOR INPATIENT GLYCEMIC CONTROL: * Holding outpatient oral diabetes medications * Correctional Insulin with NOVOLOG per scale ACHS * Goal Range: Low 120 mg/dL - High 160 mg/dL * Correction Factor: 40 mg/dL/unit * Nutritional / Prandial insulin per carb ratio of 1 unit per 15 grams CHO consumed * Please note that the plan above was derived based on current level of insulin resistance and hospital stress. These recommendations are appropriate for inpatient admission only. Plan of care upon discharge will need to be reassessed to avoid potential outpatient hypo/hyperglycemia. Thank you.
--- NOTE | 2016-09-21 10:03 | Nephrology Progress Note ---
Nephrology Progress Note Date of Service: Sep 21, 2016. Subjective 76 yo female with dialysis t-h-s at the [facility] unit followed by Dr. Harrington. has significant vascular disease. Sacral decubitus ulcer and root ulcerations are not healing well. wound culture pending. blood cultures pending. today she states that she feels good. she has a good appetite. no SOB on oxygen. Denies any chest pain, nausea or vomiting. States that pain is well controlled. continuing to tolerate IV fluids. Objective Date Time Temp Pulse Resp B/P Pulse Ox O2 Delivery O2 Flow Rate FiO2 09/21/16 08:00 Nasal Cannula 2.0 09/21/16 07:11 36.9 74 20 92/45 99 Nasal Cannula 2.5 09/21/16 04:03 Room Air 09/21/16 03:37 36.7 66 21 99/57 96 Nasal Cannula 2.0 09/21/16 00:20 Room Air 09/20/16 23:21 36.9 86 16 81/43 91 Room Air 09/20/16 20:15 Nasal Cannula 2.0 09/20/16 20:09 37.1 87 26 100/58 100 Nasal Cannula 3.0 09/20/16 16:16 36.9 84 24 107/71 94 Room Air 09/20/16 16:00 100 Nasal Cannula 2.0 09/20/16 15:58 36.7 84 18 107/71 100 Nasal Cannula 2.0 09/20/16 15:09 Room Air 09/20/16 13:02 Room Air 09/20/16 11:29 36.6 85 20 102/50 94 Room Air 09/20/16 11:18 Room Air Physical Exam: General-aaox3, more awake today Eyes-no scleral icterus ENT-mmm Neck-supple Lungs-clear apically. reduced breath sounds at bases. On 02 Heart-irregular Abdomen-bs+ s/nt/nd Extremities-right bka, left foot with open wound Neuro-nonfocal Skin- +sacral decubitus ulcer Current Inpatient Medications Medications (Trade) Dose Ordered Sig/Herlinda Route Start Time Stop Time Status Last Admin Dose Admin Acetaminophen (Tylenol Tab) 650 mg Q4H PRN PO 09/18/16 15:00 10/18/16 14:59 Ondansetron HCl (Zofran Inj) 4 mg Q6H PRN IV 09/18/16 15:00 10/18/16 14:59 Nitroglycerin (Nitrostat Tab) 0.4 mg UD PRN SL 09/18/16 15:00 10/18/16 14:59 Vancomycin HCl (Consult) 1 ea UD PRN N/A 09/18/16 15:37 10/18/16 15:36 Atorvastatin Calcium (Lipitor Tab) 20 mg DAILY PO 09/19/16 09:00 10/19/16 08:59 09/21/16 08:07 20 MG Diltiazem HCl (Cardizem Cd Cap) 120 mg DAILY PO 09/19/16 09:00 10/19/16 08:59 09/20/16 07:38 120 MG Acetaminophen/ Hydrocodone Bitart ([place] 10/325 Tab) 1 tab TID PRN PO 09/18/16 15:45 10/02/16 15:44 09/20/16 04:59 1 TAB Magnesium Oxide (Mag-Ox Tab) 400 mg DAILY PO 09/19/16 09:00 10/19/16 08:59 09/20/16 07:39 400 MG Fish Oil ([place]-3 (Purified Fish Oil) Cap) 1 gm BID PO 09/18/16 21:00 10/18/16 20:59 09/21/16 08:07 1 GM Trazodone HCl (Desyrel Tab) 150 mg HS PO 09/18/16 21:00 10/18/16 20:59 Future Hold Vitamin B Complex/ Vit C/Folic Acid (Nephrocaps) 1 cap DAILY PO 09/19/16 09:00 10/19/16 08:59 09/21/16 08:07 1 CAP Mupirocin (Bactroban 2% Oint) 1 appln BID EXT 09/18/16 21:00 10/18/16 20:59 09/21/16 08:08 1 APPLN Pantoprazole Sodium (Protonix Tab) 40 mg DAILY PO 09/19/16 09:00 10/19/16 08:59 09/21/16 08:07 40 MG Insulin Aspart (novoLOG ASPART) SLIDING SCALE If C... ACHS SC 09/18/16 16:15 10/18/16 16:14 09/21/16 08:18 2 UNITS Glucose (Glucose 40% Gel) 15-30 GRAMS 15 GRAMS... UD PRN PO 09/18/16 15:45 10/18/16 15:44 Glucose (Glucose Chew Tab) 4-8 Tablets 4 Tabl... UD PRN PO 09/18/16 15:45 10/18/16 15:44 Dextrose (Dextrose 50% 50ML Syringe) 25-50ML OF 50% DW IV FOR... UD PRN IV 09/18/16 15:45 10/18/16 15:44 Glucagon (Glucagon Inj) 1 mg UD PRN SQ 09/18/16 15:45 10/18/16 15:44 Miscellaneous Information (Consult Glycemic Management Pharmacy) 1 ea UD PRN N/A 09/18/16 16:12 10/18/16 16:11 Miscellaneous Information (Order Awaiting Action) 1 ea QS N/A 09/19/16 00:00 10/19/16 00:00 Piperacillin Sod/ Tazobactam Sod (Consult) 1 ea UD PRN N/A 09/18/16 16:45 10/18/16 16:44 Atropine Sulfate 0.5 mg 0.5 mg UD PRN IV 09/18/16 20:45 10/18/16 20:44 Piperacillin Sod/ Tazobactam Sod 4.5 gm/Dextrose 120 ml @ 30 mls/hr Q12H IV 09/19/16 04:00 09/29/16 03:59 09/21/16 03:34 30 MLS/HR Acetaminophen 650 mg/Empty Bag 65 ml @ 260 mls/hr Q6H PRN IV 09/19/16 04:00 10/19/16 03:59 09/19/16 04:22 260 MLS/HR Sodium Chloride (Nss 1000ml) 1,000 ml @ 50 mls/hr Q20H IV 09/19/16 09:30 10/19/16 09:29 09/20/16 21:49 50 MLS/HR Last 24 Hours Test 09/20/16 10:57 09/20/16 11:15 09/20/16 16:43 09/20/16 20:30 Bedside Glucose 166 mg/dl 143 mg/dl 161 mg/dl White Blood Count 13.59 K/uL Red Blood Count 2.68 M/uL Hemoglobin 8.4 g/dL Hematocrit 25.4 % Mean Corpuscular Volume 94.8 fL Mean Corpuscular Hemoglobin 31.3 pg Mean Corpuscular Hemoglobin Concent 33.1 g/dl Platelet Count 121 K/uL Mean Platelet Volume 10.4 fL Neutrophils (%) (Auto) 83.7 % Lymphocytes (%) (Auto) 8.1 % Monocytes (%) (Auto) 6.4 % Eosinophils (%) (Auto) 0.9 % Basophils (%) (Auto) 0.1 % Neutrophils # (Auto) 11.37 K/uL Lymphocytes # (Auto) 1.10 K/uL Monocytes # (Auto) 0.87 K/uL Eosinophils # (Auto) 0.12 K/uL Basophils # (Auto) 0.02 K/uL RDW Standard Deviation 61.2 fL RDW Coefficient of Variation 17.5 % Immature Granulocyte % (Auto) 0.8 % Immature Granulocyte # (Auto) 0.11 K/uL Red Blood Cell Morphology Unremarkable Test 09/21/16 05:48 09/21/16 07:03 White Blood Count 11.77 K/uL Red Blood Count 2.43 M/uL Hemoglobin 7.6 g/dL Hematocrit 22.9 % Mean Corpuscular Volume 94.2 fL Mean Corpuscular Hemoglobin 31.3 pg Mean Corpuscular Hemoglobin Concent 33.2 g/dl RDW Standard Deviation 59.7 fL RDW Coefficient of Variation 17.4 % Platelet Count 121 K/uL Mean Platelet Volume 10.0 fL Nucleated RBC Absolute Count (auto) 0.03 K/uL Nucleated Red Blood Cells % 0.2 % Creatinine 6.90 mg/dl Est Creatinine Clear Calc Drug Dose 5.8 ml/min Estimated GFR () 6.0 Estimated GFR (Non- 5.2 Random Vancomycin Level 24.5 mcg/ml Bedside Glucose 96 mg/dl Date/Time Source Procedure Growth Status 09/20/16 11:39 Blood Blood Culture Pending Received 09/20/16 11:15 Blood Blood Culture Pending Received Other Studies: 09/19/16 09/20/16 09/21/16 08:00 08:00 08:00 Intake Total 980 ml 1685 ml 2602 ml Output Total 0 ml Balance 980 ml 1685 ml 2602 ml Assessment & Plan ESRD-Plan for dialysis today and continue on /W/ schedule or as clinical condition dictates. to follow potassium levels and adjust dialysate accordingly. due to hypotension will only do dialysis for clearance of toxins and not for fluid removal. volume status appropriate. Anemia of renal failure-hgb 7.6. continue procrit on dialysis for goal hg of 10 to 11and transfuse if patient agreeable when necessary. This patient was seen and treated with direct collaboration with Dr. Mclaughlin. Thank you for the opportunity to participate in this patient's care. Appreciate the Consult. ATTENDING NOTE: I performed a history and physical examination of the patient, including specifically on history- pt continues to clinically improve-seen after dialysis today-tolerated it well, on physical exam-cta, left foot with chronic wound, and my impression and plan are ESRD-continue dialysis in hospital , usually dialyzes at [facility]. if plan is to discharge over , ok to wait till saturday for dialysis. otherwise will plan on dialysis again on saturday if still in hospital. will stop the iv fluids and see if bp maintains off fluids. I have discussed the patient's management with Jessie Soriano PA-C, Please refer to above note for the documented findings and plan of care. India Mclaughlin DO
--- NOTE | 2016-09-21 11:37 | Infectious Disease Progress Nt ---
Progress Note Date of Service Sep 21, 2016. Subjective Pt evaluation today including: conversation w/ patient, physical exam, chart review, lab review, review of studies, conversation w/ organization development consultant (Dr. Jones), review of inpatient medication list WBC count this morning is 11.77. Hgb is 7.6. Creatinine was 6.90 this morning. She is on hemodialysis while I'm in the room this morning. I did speak to Dr. Jones this morning regarding this patient. Feel that likely her sacral ulceration of foot are still the most likely source of her bacteremia. Initial cultures growing MRSA in 2/2 blood cultures. Repeat cultures pending. Wound culture from the sacral wound is pending. She continues on IV Vancomycin and Zosyn. Echo noted that the mitral valve is thickened and the aortic valve is moderately calcified. No vegetations noted. Patient states that her buttocks and left foot area starting to feel better. All Other Systems: Reviewed and Negative Medications Current Inpatient Medications Medications (Trade) Dose Ordered Sig/Herlinda Route Start Time Stop Time Status Last Admin Dose Admin Acetaminophen (Tylenol Tab) 650 mg Q4H PRN PO 09/18/16 15:00 10/18/16 14:59 Ondansetron HCl (Zofran Inj) 4 mg Q6H PRN IV 09/18/16 15:00 10/18/16 14:59 Nitroglycerin (Nitrostat Tab) 0.4 mg UD PRN SL 09/18/16 15:00 10/18/16 14:59 Vancomycin HCl (Consult) 1 ea UD PRN N/A 09/18/16 15:37 10/18/16 15:36 Atorvastatin Calcium (Lipitor Tab) 20 mg DAILY PO 09/19/16 09:00 10/19/16 08:59 09/21/16 08:07 20 MG Diltiazem HCl (Cardizem Cd Cap) 120 mg DAILY PO 09/19/16 09:00 10/19/16 08:59 09/20/16 07:38 120 MG Acetaminophen/ Hydrocodone Bitart ([place] 10/325 Tab) 1 tab TID PRN PO 09/18/16 15:45 10/02/16 15:44 09/20/16 04:59 1 TAB Magnesium Oxide (Mag-Ox Tab) 400 mg DAILY PO 09/19/16 09:00 10/19/16 08:59 09/20/16 07:39 400 MG Fish Oil ([place]-3 (Purified Fish Oil) Cap) 1 gm BID PO 09/18/16 21:00 10/18/16 20:59 09/21/16 08:07 1 GM Trazodone HCl (Desyrel Tab) 150 mg HS PO 09/18/16 21:00 10/18/16 20:59 Future Hold Vitamin B Complex/ Vit C/Folic Acid (Nephrocaps) 1 cap DAILY PO 09/19/16 09:00 10/19/16 08:59 09/21/16 08:07 1 CAP Mupirocin (Bactroban 2% Oint) 1 appln BID EXT 09/18/16 21:00 10/18/16 20:59 09/21/16 08:08 1 APPLN Pantoprazole Sodium (Protonix Tab) 40 mg DAILY PO 09/19/16 09:00 10/19/16 08:59 09/21/16 08:07 40 MG Insulin Aspart (novoLOG ASPART) SLIDING SCALE If C... ACHS SC 09/18/16 16:15 10/18/16 16:14 09/21/16 08:18 2 UNITS Glucose (Glucose 40% Gel) 15-30 GRAMS 15 GRAMS... UD PRN PO 09/18/16 15:45 10/18/16 15:44 Glucose (Glucose Chew Tab) 4-8 Tablets 4 Tabl... UD PRN PO 09/18/16 15:45 10/18/16 15:44 Dextrose (Dextrose 50% 50ML Syringe) 25-50ML OF 50% DW IV FOR... UD PRN IV 09/18/16 15:45 10/18/16 15:44 Glucagon (Glucagon Inj) 1 mg UD PRN SQ 09/18/16 15:45 10/18/16 15:44 Miscellaneous Information (Consult Glycemic Management Pharmacy) 1 ea UD PRN N/A 09/18/16 16:12 10/18/16 16:11 Miscellaneous Information (Order Awaiting Action) 1 ea QS N/A 09/19/16 00:00 10/19/16 00:00 Piperacillin Sod/ Tazobactam Sod (Consult) 1 ea UD PRN N/A 09/18/16 16:45 10/18/16 16:44 Atropine Sulfate 0.5 mg 0.5 mg UD PRN IV 09/18/16 20:45 10/18/16 20:44 Piperacillin Sod/ Tazobactam Sod 4.5 gm/Dextrose 120 ml @ 30 mls/hr Q12H IV 09/19/16 04:00 09/29/16 03:59 09/21/16 03:34 30 MLS/HR Acetaminophen 650 mg/Empty Bag 65 ml @ 260 mls/hr Q6H PRN IV 09/19/16 04:00 10/19/16 03:59 09/19/16 04:22 260 MLS/HR Sodium Chloride (Nss 1000ml) 1,000 ml @ 50 mls/hr Q20H IV 09/19/16 09:30 10/19/16 09:29 09/20/16 21:49 50 MLS/HR Objective Vital Signs Date Time Temp Pulse Resp B/P Pulse Ox O2 Delivery O2 Flow Rate FiO2 09/21/16 08:00 Nasal Cannula 2.0 09/21/16 07:11 36.9 74 20 92/45 99 Nasal Cannula 2.5 09/21/16 04:03 Room Air 09/21/16 03:37 36.7 66 21 99/57 96 Nasal Cannula 2.0 09/21/16 00:20 Room Air 09/20/16 23:21 36.9 86 16 81/43 91 Room Air 09/20/16 20:15 Nasal Cannula 2.0 09/20/16 20:09 37.1 87 26 100/58 100 Nasal Cannula 3.0 09/20/16 16:16 36.9 84 24 107/71 94 Room Air 09/20/16 16:00 100 Nasal Cannula 2.0 09/20/16 15:58 36.7 84 18 107/71 100 Nasal Cannula 2.0 09/20/16 15:09 Room Air 09/20/16 13:02 Room Air 09/20/16 11:29 36.6 85 20 102/50 94 Room Air Physical Exam General Appearance: WD/WN, no apparent distress Eyes: normal inspection, sclerae normal ENT: hearing grossly normal Neck: supple, trachea midline Respiratory/Chest: no respiratory distress, no accessory muscle use Cardiovascular: regular rate, rhythm Neurologic/Psychiatric: alert, normal mood/affect Skin: warm/dry, no rash Laboratory Results RUN DATE: 09/21/16 [facility] LAB PAGE 1 RUN TIME: 820 Specimen Inquiry PATIENT: BOBY BARRETO LOC: [place] U # : [id number] AGE/SX: 76/F ROOM: [facility] REG : 09/18/[address]: Low Jones MD : 1940 BED: 1 DIS : STATUS: ADM IN TLOC: SPEC #: [id number] LAUREN: 09/18/16-1540 STATUS: RES REQ #: [id number] RECD: 09/18/16-[address]: Nelida Hassan PA-C SOURCE: BLOOD ENTR: 09/18/16-[address]: Marley Augustine DO SPDESC: India Mclaughlin DO ORDERED: BLOOD CULTURE Procedure Result Verified Site BLD CULT Preliminary 09/21/16-0820 Organism 1 STAPHYLOCOCCUS AUREUS SENS SENSITIVITY TO FOLLOW SENSITIVITY RESULT INDICATES A METHICILLIN RESISTANT STAPH. AUREUS. PHONED TO IVAN HUANG AND MARILUZ SINGH() ON 09/21/16 AT 0819 BY Quincy Shaw. Results were verbalized back to ANABELLE. Phoned Positive Blood Culture Gram Stain Report to NKECHI CALDERON on 09/19/16 At 1118 By EVANGELISTA. Results were verbalized back to EVANGELISTA. 1. STAPHYLOCOCCUS AUREUS Target Route Dose RX AB Cost M.I.C. IQ ------ ----- ------ -- ------ -------- - ------ TRIMET/SULFA S <=0.5/ 9.5 * OXACILLIN R * >2 VANCOMYCIN S 2 ERYTHROMYCIN R >4 TETRACYCLINE S <=4 CLINDAMYCIN S <=0.5 DAPTOMYCIN S <=0.5 RIFAMPIN S <=1 S = SENSITIVE I = INTERMEDIATE R = RESISTANT Item Value Date Time Blood Culture Received 09/20/16 1139 Blood Pending Blood Culture Received 09/20/16 1115 Blood Pending Gram Stain - Final Resulted 09/20/16 0000 Ulcer Sacrum Blood Culture - Final Complete 09/18/16 1551 Blood Staphylococcus Aureus Blood Culture - Preliminary Resulted 09/18/16 1540 Blood Staphylococcus Aureus MRSA DNA Surveillance Screen - Final Complete 09/18/16 0000 Nasal Specimen Positive for MRSA by DNA Probe Last 24 Hours Test 09/20/16 16:43 09/20/16 20:30 09/21/16 05:48 09/21/16 07:03 Bedside Glucose 143 mg/dl 161 mg/dl 96 mg/dl White Blood Count 11.77 K/uL Red Blood Count 2.43 M/uL Hemoglobin 7.6 g/dL Hematocrit 22.9 % Mean Corpuscular Volume 94.2 fL Mean Corpuscular Hemoglobin 31.3 pg Mean Corpuscular Hemoglobin Concent 33.2 g/dl RDW Standard Deviation 59.7 fL RDW Coefficient of Variation 17.4 % Platelet Count 121 K/uL Mean Platelet Volume 10.0 fL Nucleated RBC Absolute Count (auto) 0.03 K/uL Nucleated Red Blood Cells % 0.2 % Creatinine 6.90 mg/dl Est Creatinine Clear Calc Drug Dose 5.8 ml/min Estimated GFR () 6.0 Estimated GFR (Non- 5.2 Random Vancomycin Level 24.5 mcg/ml Test 09/21/16 11:08 Bedside Glucose 167 mg/dl Assessment and Plan Patient with left foot chronic ulcerations, sacral decubitus ulceration, left upper extremity AV fistula, and MRSA bacteremia. She is currently on IV Vancomycin and Zosyn. Sacral culture is pending. Will continue broad spectrum abx pending this culture. Spoke to Dr. Jones and recommend at least X-Ray or further imaging of the sacrum to R/O underlying osteomyelitis with the chronicity of her sacral ulceration despite it appearing relatively superficial. She likely will need at least 2 weeks of IV antibiotics pending repeat cultures and improvement. If her repeat cultures continue to be positive , would recommend IRVING. We will continue to follow. Plan: 1. Continue broad spectrum abx 2. Follow cultures 3. Imaging of sacral area PROVIDER ADDENDUM: Patient reviewed with Ms. Chacon. Agree with above assessment.
--- NOTE | 2016-09-21 15:15 | Pharmacy Progress Note ---
Pharmacy Antibiotic Prog Note Date of Service: Sep 21, 2016. Subjective: The patient is currently receiving pip/tazo 4.5g IV q12h and was on vancomycin 750mg IV x 1 dose. The patient is currently on day #4 of pip/tazo IV and day #4 of vancomycin IV therapies. Objective: Height (Feet): 5 Height (Inches): 0.00 Weight (Kilograms): 71.600 Levels: Item Value Date Time Random Vancomycin Level 14.4 mcg/ml 09/18/16 1715 Random Vancomycin Level 18.7 mcg/ml 09/19/16 1005 Vancomycin Level Trough 18.6 mcg/ml 09/19/16 1920 Random Vancomycin Level 24.5 mcg/ml 09/21/16 0548 Lab Results (24hrs): Laboratory Tests Test 09/21/16 05:48 Creatinine 6.90 mg/dl White Blood Count 11.77 K/uL Micro Results: Item Value Date Time MRSA DNA Surveillance Screen - Final Complete 09/18/16 0000 Nasal Specimen Positive for MRSA by DNA Probe Blood Culture - Final Complete 09/18/16 1540 Blood Staphylococcus Aureus Blood Culture - Final Complete 09/18/16 1551 Blood Staphylococcus Aureus Gram Stain - Final Resulted 09/20/16 0000 Ulcer Sacrum Blood Culture Received 09/20/16 1115 Blood Pending Blood Culture Received 09/20/16 1139 Blood Pending RUN DATE: 09/21/16 [facility] [address] LAB PAGE 1 RUN TIME: 1149 Specimen Inquiry PATIENT: BOBY BARRETO LOC: [place] U # : [id number] AGE/SX: 76/F ROOM: E201 REG : 09/18/[address]: Low Jones MD : 1940 BED: 1 DIS : STATUS: ADM IN TLOC: SPEC #: [id number] LAUREN: 09/18/16 STATUS: COMP REQ #: [id number] RECD: 09/18/[address]: Nelida Hassan PA-C SOURCE: BLOOD ENTR: 09/18/16-150 [facility] DR: Marley Augustine DO SPDESC: India Mclaughlin DO ORDERED: BLOOD CULTURE Procedure Result Verified Site BLD CULT Final 09/21/16-1149 Organism 1 STAPHYLOCOCCUS AUREUS SENS SENSITIVITY TO FOLLOW SENSITIVITY RESULT INDICATES A METHICILLIN RESISTANT STAPH. AUREUS. PHONED TO IVAN AMARIS SINGH() ON 09/21/16 AT 0819 BY Quincy Shaw. Results were verbalized back to ANABELLE. Phoned Positive Blood Culture Gram Stain Report to NKECHI CALDERON on 09/19/16 At 1118 By EVANGELISTA. Results were verbalized back to EVANGELISTA. 1. STAPHYLOCOCCUS AUREUS Target Route Dose RX AB Cost M.I.C. IQ ------ ----- ------ -- ------ -------- - ------ TRIMET/SULFA S <=0.5/ 9.5 * OXACILLIN R * >2 VANCOMYCIN S 2 ERYTHROMYCIN R >4 TETRACYCLINE S <=4 CLINDAMYCIN S <=0.5 DAPTOMYCIN S <=0.5 RIFAMPIN S <=1 S = SENSITIVE I = INTERMEDIATE R = RESISTANT Assessment & Plan: ASSESSMENT: * Patient is a 76 year-old female admitted with cellulitis, sacral decubitus ulcer, and with MRSA in the blood cultures. * Patient has T2DM, CKD, and gets HD on ,, and . * Pharmacy was consulted to dose the vancomycin IV and pip/tazo IV therapies. * MRSA nasal swab was negative. BCx2 grew MRSA. Sacral ulcer and BCx2 are pending. PLAN: Vancomycin: * Random level came back at 24.5mcg/ml before HD today. * As a result, will give after HD today vancomycin 500mg IV x 1 dose @1800. * Will get a random level tomorrow morning before HD session that is probably to be scheduled for tomorrow. * Once level comes back, will determine dose to give patient after HD session. Pip/Tazo: * Will continue on pip/tazo 4.5g IV q12h due to patient being critically ill and of patient being on HD. Pharmacy will continue to follow and will adjust dose/frequency as necessary. Thank you
--- NOTE | 2016-09-21 16:17 | DIAGNOSTIC IMAGING REPORT ---
LUMBAR SPINE 2 OR 3 VIEWS CLINICAL HISTORY: Back pain. Possible osteomyelitis. COMPARISON STUDY: No previous studies for comparison. FINDINGS: The bones are osteopenic. The 2 provided lateral views are limited from a positioning standpoint. There are suspected mild superior endplate deformities at the T12-L3 level. There is age-indeterminate fracture involving the sacrococcygeal junction. It should be noted that conventional radiographic evaluation is insensitive for the detection of osteomyelitis. IMPRESSION: 1. Age-indeterminate fracture involving the sacrococcygeal junction 2. Osteopenia 3. Suspected minor superior endplate deformities T12-L3 level. Electronically signed by: Darian Cazares M.D. 09/21/2016 4:15 PM Dictated Date/Time: 09/21/2016 4:12 PM
--- NOTE | 2016-09-21 16:17 | DIAGNOSTIC IMAGING REPORT ---
SACRUM COCCYX MIN 2 VIEWS CLINICAL HISTORY: Evaluate for osteomyelitis. Altered mental status. COMPARISON STUDY: No previous studies for comparison. FINDINGS: A right femoral internal fixation is incidentally noted. Osteopenia is noted. There is extensive vascular calcification. There is no radiographic evidence for osteomyelitis although this study has significantly diminished sensitivity for the detection of osteomyelitis. IMPRESSION: No radiographic evidence of osteomyelitis although this study has significantly diminished sensitivity for the detection of osteomyelitis. Electronically signed by: Rylan Crespo M.D. 09/21/2016 4:15 PM Dictated Date/Time: 09/21/2016 4:12 PM
[2016-09-21] MEDS ORDERED: VANCOMYCIN INJ 500 MG in SODIUM CHLORIDE 0.9% 250ML 250 ML IV ONE (18:00)
--- NOTE | 2016-09-21 18:06 | Progress Note ---
Internal Med Progress Note Date of Service: Sep 21, 2016. Provider Documentation: SUBJECTIVE: resting comfortably afebrile denies any complaints denies chest pain or sob eating ok OBJECTIVE: Vital Signs-as noted below Exam: General-alert and oriented ENT-normal hearing Neck-no neck masses Lungs-cta b/l no wheezing or crackles Heart-s1 and s2 heard regular rate and rhythm no murmurs Abdomen-soft bowel sounds present non tender no distension Extremities-no erythema left foot in dressing Skin sacral decubitus ulcer stage 2 Neuro-alert and awake moves extremities Lab data as noted below. ASSESSMENT & PLAN: 76 year old is seen as a direct admission from [place] ED after presenting for AMS and missing dialysis HYPERKALEMIA - ESRD K 6.3 on presentation s/p dialysis appreciate nephrology inputs resolved HYPONATREMIA -129, on presentation na 133 09/20/16. Sepsis Bacteremia left lower extremity wounds sacral decubitus ulcer stage 2 on iv vanco and zosyn blood cx mrsa lactic acid normal gentle fluids for hypotension ID consulted and appreciate input to check for osteomyelitis iv abx as per ID ELEVATED TROPONIN -0.11 in [place] asymptomatic likely secondary to ESRD serial Juanita will f/u echo- no old echo to compare Bradycardia on and off diltiazem held monitor in [facility] f/u echo will consider cardiology consult if persist stable RIGHT BKA. Left foot wounds abx as above appreciate vascular surgery inputs. GERD PPI HTN diltiazem held for bradycardia will monitor IDDM on iss hba1c 5.6 ANEMIA OF CHRONIC DISEASE Hgb 9 s/p 1 unit PRBCs at outpatient hospital will follow h and h 7.6 today received Procrit H/O CVA per patient's daughter on Statin DEMENTIA per patient's daughter, mild dementia DVT PROPHYLAXIS: will not anticoagulated d/t anemia, and SCDs contraindicated d/ t vascular disease CODE STATUS: Level 3 per my discussion with the patient's daughter DISPOSITION monitor in tele pt/ot once more stable social service for d/c planning mostly needs terminal operations manager iv abx Vital Signs: Date Time Temp Pulse Resp B/P Pulse Ox O2 Delivery O2 Flow Rate FiO2 09/21/16 16:00 Nasal Cannula 2.0 09/21/16 15:56 36.7 80 20 100/55 99 Nasal Cannula 3.0 09/21/16 15:20 36.8 96 90/49 09/21/16 14:33 89 90/50 09/21/16 14:30 87 93/48 09/21/16 14:15 88 86/50 09/21/16 14:00 92 91/49 09/21/16 13:45 88 93/48 09/21/16 13:30 91 94/62 09/21/16 13:15 91 71/62 09/21/16 13:00 85 93/45 09/21/16 12:45 78 89/48 09/21/16 12:30 81 94/50 09/21/16 12:20 37.0 81 18 94/50 99 Nasal Cannula 2.5 09/21/16 12:15 67 89/41 09/21/16 12:00 Nasal Cannula 2.0 09/21/16 12:00 70 88/47 09/21/16 11:45 78 105/78 09/21/16 11:33 76 95/50 09/21/16 11:06 36.8 77 87/50 09/21/16 08:00 Nasal Cannula 2.0 09/21/16 07:11 36.9 74 20 92/45 99 Nasal Cannula 2.5 09/21/16 04:03 Room Air 09/21/16 03:37 36.7 66 21 99/57 96 Nasal Cannula 2.0 09/21/16 00:20 Room Air 09/20/16 23:21 36.9 86 16 81/43 91 Room Air 09/20/16 20:15 Nasal Cannula 2.0 09/20/16 20:09 37.1 87 26 100/58 100 Nasal Cannula 3.0 Lab Results: Results Past 24 Hours Test 09/20/16 20:30 09/21/16 05:48 09/21/16 07:03 09/21/16 11:08 Range/Units Bedside Glucose 161 96 167 70-90 mg/dl White Blood Count 11.77 4.8-10.8 K/uL Red Blood Count 2.43 4.2-5.4 M/uL Hemoglobin 7.6 12.0-16.0 g/dL Hematocrit 22.9 37-47 % Mean Corpuscular Volume 94.2 80-100 fL Mean Corpuscular Hemoglobin 31.3 25-34 pg Mean Corpuscular Hemoglobin Concent 33.2 32-36 g/dl RDW Standard Deviation 59.7 36.4-46.3 fL RDW Coefficient of Variation 17.4 11.5-14.5 % Platelet Count 121 130-400 K/uL Mean Platelet Volume 10.0 7.4-10.4 fL Nucleated RBC Absolute Count (auto) 0.03 0-0 K/uL Nucleated Red Blood Cells % 0.2 % Creatinine 6.90 0.60-1.20 mg/dl Est Creatinine Clear Calc Drug Dose 5.8 ml/min Estimated GFR () 6.0 Estimated GFR (Non- 5.2 Random Vancomycin Level 24.5 mcg/ml Test 09/21/16 16:30 Range/Units Bedside Glucose 113 70-90 mg/dl
[2016-09-22 03:10] VITALS: BP 101/53; PULSE 74; TEMP 36.9; O2SAT 100
[2016-09-22] MEDS: PIPERACILL/TAZOBAC IV 4.5 GM in DEXTROSE 5% 100ML IV SCH (04:18)
[2016-09-22 07:13] LABS: CREATININE 4.3 mg/dl (0.60-1.20)
[2016-09-22] MEDS: DILTIAZEM HCL 120 MG CAPCR PO SCH (07:41)
[2016-09-22] MEDS: ATORVASTATIN 20 MG TAB PO SCH (07:43)
[2016-09-22] MEDS: MAGNESIUM OXIDE 400 MG TAB PO SCH (07:43)
[2016-09-22] MEDS: PANTOprazole SOD 40 MG TAB PO SCH (07:43)
[2016-09-22] MEDS: OMEGA-3 (PURIFIED FISH OIL) 1 GM CAP PO SCH ×2 (07:43→20:35)
[2016-09-22] MEDS: NEPHROCAPS PO SCH (07:43)
[2016-09-22] MEDS: MUPIROCIN 2% OINT 22 GM TUBE EXT SCH ×2 (07:44→20:35)
[2016-09-22] MEDS: INSULIN ASPART 100 UNITS/ML 3 ML PEN SC SCH ×4 (07:44→21:00)
[2016-09-22 08:04] VITALS: BP 92/50; PULSE 76; TEMP 37.1; O2SAT 99
--- NOTE | 2016-09-22 09:43 | Progress Note ---
Internal Med Progress Note Date of Service: Sep 22, 2016. Provider Documentation: SUBJECTIVE: The patient was sen and examined Wants to go home Very weak and lethargic OBJECTIVE: Vital Signs-as noted below Exam: General-No distress at rest Eyes-normal ENT-normal Neck-supple Lungs-clear Heart-regular Abdomen-Benign Extremities-No edema on left -left foot is bandaged Right BKA Neuro-AAox3 Lab data as noted below. ASSESSMENT & PLAN: Sepsis Staph Bacteremia secondary to left foot wound Sacral decubitus ulcer stage 2-X ray does not show any Osteomyelitis On iv vanco and zosyn Blood cx mrsa Appreciate ID input I/V antibiotic for 14 days HYPERKALEMIA - ESRD K 6.3 on presentation Improved on Dialysis Appreciate nephrology input ANEMIA OF CHRONIC DISEASE Hgb 9 s/p 1 unit PRBCs at outpatient hospital On Procrit Hb 7.6 yesterday Will recheck in AM May need more blood ELEVATED TROPONIN Troponin 0.11 at [facility] Likely due to ESRD ECHO:: * The rhythm is atrial fibrillation. * Ejection Fraction = 50-55%. * The apical septum is thinned and akinetic. * The base inferoseptum is akinetic. * The mid inferoseptum is hypokinetic. * The apical inferior wall is severly hypokinetic to akinetic. * The right ventricle is mildly dilated. * The right ventricular systolic function is qualitatively normal. * The aortic valve is moderately calcified. * Mild valvular aortic stenosis. * There is mild to moderate mitral regurgitation. * There is severe tricuspid regurgitation. * The estimated systolic PAP is 83mmHg. * Dilated inferior vena cava with reduced collapsability with sniff indicates an elevated right atrial pressure of 15 mmHg No ACS Bradycardia-resolved on and off diltiazem on Hold Can restart Cardizem Left foot wounds abx as above appreciate vascular surgery inputs. Wound Care consult GERD PPI HTN diltiazem held for bradycardia will monitor IDDM on iss hba1c 5.6 H/O CVA per patient's daughter on Statin DEMENTIA per patient's daughter, mild dementia DVT PROPHYLAXIS: will not anticoagulated d/t anemia, and SCDs contraindicated d/ t vascular disease CODE STATUS: Level 3 per my discussion with the patient's daughter DISPOSITION monitor in tele pt/ot once more stable social service for d/c planning mostly needs shelter iv abx Vital Signs: Date Time Temp Pulse Resp B/P Pulse Ox O2 Delivery O2 Flow Rate FiO2 09/22/16 08:04 37.1 76 18 92/50 99 Room Air 09/22/16 04:00 Nasal Cannula 2.5 09/22/16 03:10 36.9 74 18 101/53 100 Nasal Cannula 2.5 09/22/16 00:00 Nasal Cannula 2.5 09/21/16 20:00 Nasal Cannula 2.5 09/21/16 20:00 36.8 91 16 104/52 98 Nasal Cannula 2.5 09/21/16 16:00 Nasal Cannula 2.0 09/21/16 15:56 36.7 80 20 100/55 99 Nasal Cannula 3.0 09/21/16 15:20 36.8 96 90/49 09/21/16 14:33 89 90/50 09/21/16 14:30 87 93/48 09/21/16 14:15 88 86/50 09/21/16 14:00 92 91/49 09/21/16 13:45 88 93/48 09/21/16 13:30 91 94/62 09/21/16 13:15 91 71/62 09/21/16 13:00 85 93/45 09/21/16 12:45 78 89/48 09/21/16 12:30 81 94/50 09/21/16 12:20 37.0 81 18 94/50 99 Nasal Cannula 2.5 09/21/16 12:15 67 89/41 09/21/16 12:00 Nasal Cannula 2.0 09/21/16 12:00 70 88/47 09/21/16 11:45 78 105/78 09/21/16 11:33 76 95/50 09/21/16 11:06 36.8 77 87/50 Lab Results: Results Past 24 Hours Test 09/21/16 11:08 09/21/16 16:30 09/21/16 20:11 09/21/16 22:06 Range/Units Bedside Glucose 167 113 251 70-90 mg/dl Random Glucose 212 70-99 mg/dl Test 09/22/16 05:30 09/22/16 06:44 Range/Units Creatinine 4.30 0.60-1.20 mg/dl Est Creatinine Clear Calc Drug Dose 9.3 ml/min Estimated GFR () 10.7 Estimated GFR (Non- 9.2 Random Vancomycin Level 25.4 mcg/ml Bedside Glucose 127 70-90 mg/dl
[2016-09-22 12:26] VITALS: BP 97/44; PULSE 78; TEMP 36.8; O2SAT 98
[2016-09-22] MEDS: HYDROCODONE/ACETAMI 10/325 TAB PO PRN (15:58)
[2016-09-22 16:18] VITALS: BP 99/49; PULSE 79; TEMP 36.9; O2SAT 97
[2016-09-22 20:16] VITALS: BP 106/47; PULSE 80; TEMP 36.7; O2SAT 98
[2016-09-22 23:20] VITALS: BP 110/47; PULSE 72; TEMP 36.5; O2SAT 100
[2016-09-23 03:27] VITALS: BP 91/64; PULSE 80; TEMP 36.7; O2SAT 98
[2016-09-23 06:14] LABS: HEMATOCRIT 25.2 % (37-47); MEAN CELL VOLUME 95.8 fL (80-100); MEAN CORPUSCULAR HEMOGLOBIN 31.2 pg (25-34); MEAN CORPUSCULAR HGB CONC 32.5 g/dl (32-36); MEAN PLATELET VOLUME 9.7 fL (7.4-10.4); PLATELET COUNT 155 K/uL (130-400); RED BLOOD COUNT 2.63 M/uL (4.2-5.4)
[2016-09-23 07:02] LABS: BUN/CREATININE RATIO 6.7 (10-20); CALCIUM 8.4 mg/dl (8.5-10.1); CREATININE 5.6 mg/dl (0.60-1.20); MAGNESIUM 2.2 mg/dl (1.8-2.4); PHOSPHORUS 3.4 mg/dl (2.5-4.9); POTASSIUM 3.3 mmol/L (3.5-5.1)
[2016-09-23 07:50] VITALS: BP 130/69; PULSE 85; TEMP 36.7; O2SAT 97
[2016-09-23] MEDS: INSULIN ASPART 100 UNITS/ML 3 ML PEN SC SCH ×4 (07:51→22:19)
[2016-09-23] MEDS ORDERED: POTASSIUM CHLORIDE 10 MEQ TABCR PO ONE (08:30)
[2016-09-23] MEDS: MAGNESIUM OXIDE 400 MG TAB PO SCH (09:06)
[2016-09-23] MEDS: DILTIAZEM HCL 120 MG CAPCR PO SCH (09:06)
[2016-09-23] MEDS: PANTOprazole SOD 40 MG TAB PO SCH (09:06)
[2016-09-23] MEDS: OMEGA-3 (PURIFIED FISH OIL) 1 GM CAP PO SCH ×2 (09:06→21:58)
[2016-09-23] MEDS: ATORVASTATIN 20 MG TAB PO SCH (09:07)
[2016-09-23] MEDS: NEPHROCAPS PO SCH (09:07)
[2016-09-23] MEDS: MUPIROCIN 2% OINT 22 GM TUBE EXT SCH ×2 (09:08→21:57)
--- NOTE | 2016-09-23 11:45 | Progress Note ---
Internal Med Progress Note Date of Service: Sep 23, 2016. Provider Documentation: SUBJECTIVE: The patient was sen and examined Clinically better today Will have dialysis today OBJECTIVE: Vital Signs-as noted below Exam: General-No distress at rest Eyes-normal ENT-normal Neck-supple Lungs-clear Heart-regular Abdomen-Benign Extremities-No edema on left -left foot is bandaged Right BKA Neuro-AAox3 Lab data as noted below. ASSESSMENT & PLAN: Sepsis Staph Bacteremia secondary to left foot wound Sacral decubitus ulcer stage 2-X ray does not show any Osteomyelitis On iv vanco and zosyn Blood cx mrsa Appreciate ID input I/V antibiotic for 14 days Will need PICC line placement Likely home in AM HYPERKALEMIA - ESRD K 6.3 on presentation Improved on Dialysis Appreciate nephrology input ANEMIA OF CHRONIC DISEASE Hgb 9 s/p 1 unit PRBCs at outpatient hospital On Procrit Hb 7.6 yesterday Will recheck in AM >8 on 09/23/16 ELEVATED TROPONIN Troponin 0.11 at [facility] Likely due to ESRD ECHO:: * The rhythm is atrial fibrillation. * Ejection Fraction = 50-55%. * The apical septum is thinned and akinetic. * The base inferoseptum is akinetic. * The mid inferoseptum is hypokinetic. * The apical inferior wall is severly hypokinetic to akinetic. * The right ventricle is mildly dilated. * The right ventricular systolic function is qualitatively normal. * The aortic valve is moderately calcified. * Mild valvular aortic stenosis. * There is mild to moderate mitral regurgitation. * There is severe tricuspid regurgitation. * The estimated systolic PAP is 83mmHg. * Dilated inferior vena cava with reduced collapsability with sniff indicates an elevated right atrial pressure of 15 mmHg No ACS Bradycardia-resolved on and off diltiazem on Hold Can restart Cardizem Left foot wounds abx as above appreciate vascular surgery inputs. Wound Care consult GERD PPI HTN diltiazem held for bradycardia will monitor IDDM On Sliding Scale Insulin coverage hba1c 5.6 H/O CVA per patient's daughter on Statin DEMENTIA per patient's daughter, mild dementia DVT PROPHYLAXIS: will not anticoagulated d/t anemia, and SCDs contraindicated d/ t vascular disease CODE STATUS: Level 3 per my discussion with the patient's daughter DISPOSITION monitor in tele pt/ot once more stable social service for d/c planning will need IV antibiotic Vital Signs: Date Time Temp Pulse Resp B/P Pulse Ox O2 Delivery O2 Flow Rate FiO2 09/23/16 08:00 Nasal Cannula 2.0 09/23/16 07:50 36.7 85 15 130/69 97 Nasal Cannula 1.0 09/23/16 04:00 Nasal Cannula 2.0 09/23/16 03:27 36.7 80 18 91/64 98 Nasal Cannula 1.0 09/23/16 00:00 Room Air 09/22/16 23:20 36.5 72 16 110/47 100 Nasal Cannula 1.0 09/22/16 20:16 36.7 80 18 106/47 98 Nasal Cannula 1.0 09/22/16 20:00 Room Air 09/22/16 16:18 36.9 79 19 99/49 97 Nasal Cannula 1.0 09/22/16 16:15 Nasal Cannula 1.0 09/22/16 12:26 36.8 78 21 97/44 98 Nasal Cannula 2.0 09/22/16 12:10 Nasal Cannula 2.0 Lab Results: Results Past 24 Hours Test 09/22/16 16:15 09/22/16 20:32 09/23/16 05:18 09/23/16 07:05 Range/Units Bedside Glucose 148 137 100 70-90 mg/dl White Blood Count 12.80 4.8-10.8 K/uL Red Blood Count 2.63 4.2-5.4 M/uL Hemoglobin 8.2 12.0-16.0 g/dL Hematocrit 25.2 37-47 % Mean Corpuscular Volume 95.8 80-100 fL Mean Corpuscular Hemoglobin 31.2 25-34 pg Mean Corpuscular Hemoglobin Concent 32.5 32-36 g/dl RDW Standard Deviation 60.1 36.4-46.3 fL RDW Coefficient of Variation 17.3 11.5-14.5 % Platelet Count 155 130-400 K/uL Mean Platelet Volume 9.7 7.4-10.4 fL Nucleated RBC Absolute Count (auto) 0.02 0-0 K/uL Nucleated Red Blood Cells % 0.1 % Sodium Level 135 136-145 mmol/L Potassium Level 3.3 3.5-5.1 mmol/L Chloride Level 96 98-107 mmol/L Carbon Dioxide Level 28 21-32 mmol/L Anion Gap 11.0 3-11 mmol/L Blood Urea Nitrogen 38 7-18 mg/dl Creatinine 5.60 0.60-1.20 mg/dl Est Creatinine Clear Calc Drug Dose 7.2 ml/min Estimated GFR () 7.8 Estimated GFR (Non- 6.7 BUN/Creatinine Ratio 6.7 10-20 Random Glucose 98 70-99 mg/dl Calcium Level 8.4 8.5-10.1 mg/dl Phosphorus Level 3.4 2.5-4.9 mg/dl Magnesium Level 2.2 1.8-2.4 mg/dl
[2016-09-23 11:55] VITALS: BP 130/69; PULSE 84; TEMP 36.7; O2SAT 97
--- NOTE | 2016-09-23 14:59 | PROGRESS NOTE ---
DATE: 09/23/2016 HISTORY OF PRESENT ILLNESS: The patient is a chronic dialysis patient of [facility]. She denies any new complaints. She is awake, alert, eating normally, denies any respiratory distress. Her last dialysis was on Saturday. Normally, she gets dialysis as an outpatient on Saturday, and Saturday. She is no longer hypotensive. PHYSICAL EXAMINATION: VITAL SIGNS: Her last blood pressure was 130/69, currently 97% on 2 liter nasal cannula. HEENT: Mucous membrane is moist. NECK: Supple. No jugular venous distention. CHEST: Bilateral clear to auscultation. CARDIOVASCULAR: S1 and S2, regular. ABDOMEN: Soft, nontender. EXTREMITIES: Right BKA. Left with open wound, no lower extremity edema noted. NEUROLOGIC: Nonfocal. LABORATORY TESTS: From this morning shows sodium 135, potassium 3.3, BUN 38, creatinine 5.6. ASSESSMENT AND PLAN: End-stage renal disease. Her normal dialysis days are Saturday, and Saturday. At this point, she has no fluid or electrolyte emergency needing dialysis; in fact her potassium is low at 3.3. I would not give any potassium as expected to be normal by tomorrow. She can wait until Saturday for dialysis. She does have anemia of renal failure. Her hemoglobin today was slightly better at 8.2. She will continue to get Procrit with dialysis. [facility]
--- NOTE | 2016-09-23 15:32 | Pharmacy Progress Note ---
Glycemic: Assessment & Plan Date of Service Sep 23, 2016. Assessment & Plan * The patient is currently receiving 5-10 units of insulin per day. BSGs ranging 98 - 152 mg/dl over the past 24hrs. * FBG today = 98 mg/dl; No basal insulin needed. * Diet = Renal/DM2; Post-prandial BSGs are controlled on current regimen. CONTINUE: * Basal insulin: none * Correctional Insulin: Novolog Correction per scale ACHS Goal Range: Low 120 mg/dL - High 160 mg/dL Correction Factor: 40 mg/dL/unit * Prandial insulin: Per carb ratio of 1 unit per 15 grams CHO consumed BSGs continue to improve, no changes needed to inpatient regimen at this time. Pharmacy will sign -off of consult. Please feel free to call the pharmacy glycemic pharmacist with questions or re-consult should the need arise. Thanks. * Please note that the plan above was derived based on current level of insulin resistance and hospital stress. These recommendations are appropriate for inpatient admission only. Plan of care upon discharge will need to be reassessed to avoid potential outpatient hypo/hyperglycemia.
[2016-09-23 16:00] VITALS: BP 124/68; PULSE 76; TEMP 36.9; O2SAT 96
[2016-09-23 19:07] VITALS: BP 105/53; PULSE 76; TEMP 36.8; O2SAT 98
[2016-09-23 23:03] VITALS: BP 101/55; PULSE 70; TEMP 36.6; O2SAT 98
[2016-09-24] VITALS (7 sets, daily range): BP systolic 98–104; BP diastolic 41–59; PULSE 66–74; TEMP 36.5–37; O2SAT 88–98
[2016-09-24] MEDS: PANTOprazole SOD 40 MG TAB PO SCH (08:06)
[2016-09-24] MEDS: OMEGA-3 (PURIFIED FISH OIL) 1 GM CAP PO SCH ×2 (08:06→19:38)
[2016-09-24] MEDS: DILTIAZEM HCL 120 MG CAPCR PO SCH (08:06)
[2016-09-24] MEDS: ATORVASTATIN 20 MG TAB PO SCH (08:07)
[2016-09-24] MEDS: NEPHROCAPS PO SCH (08:07)
[2016-09-24] MEDS: MAGNESIUM OXIDE 400 MG TAB PO SCH (08:07)
[2016-09-24] MEDS: MUPIROCIN 2% OINT 22 GM TUBE EXT SCH ×2 (08:07→19:59)
[2016-09-24] MEDS: INSULIN ASPART 100 UNITS/ML 3 ML PEN SC SCH ×4 (08:10→21:02)
[2016-09-24 09:00] LABS: HEMATOCRIT 25.1 % (37-47); MEAN CELL VOLUME 96.5 fL (80-100); MEAN CORPUSCULAR HEMOGLOBIN 31.2 pg (25-34); MEAN CORPUSCULAR HGB CONC 32.3 g/dl (32-36); MEAN PLATELET VOLUME 9.4 fL (7.4-10.4); PLATELET COUNT 177 K/uL (130-400); WHITE BLOOD COUNT 11.58 K/uL (4.8-10.8)
--- NOTE | 2016-09-24 09:23 | Pharmacy Progress Note ---
Pharmacy Antibiotic Prog Note Date of Service: Sep 24, 2016. Subjective: The patient is currently receiving Vancomycin IV, dosing based upon random levels d/t HD status. The patient is currently on day # 7 of abx IV therapy. Objective: Height (Feet): 5 Height (Inches): 0.00 Weight (Kilograms): 71.600 Levels: Item Value Date Time Random Vancomycin Level 21.8 mcg/ml 09/24/16 0455 Random Vancomycin Level 25.4 mcg/ml 09/22/16 0530 Random Vancomycin Level 24.5 mcg/ml 09/21/16 0548 Vancomycin Level Trough 18.6 mcg/ml 09/19/16 1920 Random Vancomycin Level 18.7 mcg/ml 09/19/16 1005 Lab Results (24hrs): Laboratory Tests Test 09/24/16 08:47 White Blood Count 11.58 K/uL Micro Results: Item Value Date Time Blood Culture - Preliminary Resulted 09/20/16 1139 Blood NO GROWTH TO DATE. Blood Culture - Preliminary Resulted 09/20/16 1115 Blood NO GROWTH TO DATE. Gram Stain - Final Complete 09/20/16 0000 Ulcer Sacrum Blood Culture - Final Complete 09/18/16 1551 Blood Staphylococcus Aureus Blood Culture - Final Complete 09/18/16 1540 Blood Staphylococcus Aureus MRSA DNA Surveillance Screen - Final Complete 09/18/16 0000 Nasal Specimen Positive for MRSA by DNA Probe RUN DATE: 09/21/16 [facility] LAB PAGE 1 RUN TIME: 1149 Specimen Inquiry PATIENT: BOBY BARRETO LOC: [place] U # : [id number] AGE/SX: 76/F ROOM: E201 REG : 09/18/[address]: Low Jones MD : [id number] BED: 1 DIS : STATUS: ADM IN TLOC: SPEC #: [id number] LAUREN: 09/18/16 STATUS: COMP REQ #: [id number] RECD: 09/18/[address]: Nelida Hassan PA-C SOURCE: BLOOD ENTR: 09/18/16-[address]: Marley Augustine DO [facility]: [place] Mclaughlin DO ORDERED: BLOOD CULTURE Procedure Result Verified Site BLD CULT Final 09/21/16-1149 Organism 1 STAPHYLOCOCCUS AUREUS SENS SENSITIVITY TO FOLLOW SENSITIVITY RESULT INDICATES A METHICILLIN RESISTANT STAPH. AUREUS. PHONED TO IVAN HUANG AND MARILUZ SINGH() ON 09/21/16 AT 0819 BY Quincy Shaw. Results were verbalized back to ANABELLE. Phoned Positive Blood Culture Gram Stain Report to NKECHI CALDERON on 09/19/16 At 1118 By EVANGELISTA. Results were verbalized back to 1. STAPHYLOCOCCUS AUREUS Target Route Dose RX AB Cost M.I.C. IQ ------ ----- ------ -- ------ -------- - ------ TRIMET/SULFA S <=0.5/ 9.5 * OXACILLIN R * >2 VANCOMYCIN S 2 ERYTHROMYCIN R >4 TETRACYCLINE S <=4 CLINDAMYCIN S <=0.5 DAPTOMYCIN S <=0.5 RIFAMPIN S <=1 S = SENSITIVE I = INTERMEDIATE R = RESISTANT Assessment & Plan: Vancomycin: * Random level this morning was 21.8 mcg/ml. * Will need to re-dose post-dialysis session with Vancomycin 500mg IV x 1. * Will order next random level to be drawn prior to next HD session. Pharmacy will continue to follow and will adjust dose/frequency as necessary. Thank you
[2016-09-24 09:50] LABS: BUN/CREATININE RATIO 6.3 (10-20); CALCIUM 8.8 mg/dl (8.5-10.1); CREATININE 6.7 mg/dl (0.60-1.20); POTASSIUM 3.8 mmol/L (3.5-5.1)
--- NOTE | 2016-09-24 11:47 | Infectious Disease Progress Nt ---
Progress Note Date of Service Sep 24, 2016. Subjective Pt evaluation today including: conversation w/ patient, physical exam, chart review, lab review, review of studies, conversation w/ device sales consultant (Dr. Contreras), review of inpatient medication list Repeat blood cultures continue to show no growth. Patient is currently on IV Vancomycin alone. She is feeling well today. She states that her buttocks and left foot are feeling better. Much less tenderness. WBC count today is 11.58. Her creatinine was 6.70. She has been afebrile. Lumbar spine X-Ray showed osteopenia and possible old fracture of the sacrococcygeal junction. Sacral X- Ray showed no evidence of osteomyelitis within the scope of this study. All Other Systems: Reviewed and Negative Medications Current Inpatient Medications Medications (Trade) Dose Ordered Sig/Herlinda Route Start Time Stop Time Status Last Admin Dose Admin Acetaminophen (Tylenol Tab) 650 mg Q4H PRN PO 09/18/16 15:00 10/18/16 14:59 Ondansetron HCl (Zofran Inj) 4 mg Q6H PRN IV 09/18/16 15:00 10/18/16 14:59 Nitroglycerin (Nitrostat Tab) 0.4 mg UD PRN SL 09/18/16 15:00 10/18/16 14:59 Vancomycin HCl (Consult) 1 ea UD PRN N/A 09/18/16 15:37 10/18/16 15:36 Atorvastatin Calcium (Lipitor Tab) 20 mg DAILY PO 09/19/16 09:00 10/19/16 08:59 09/24/16 08:07 20 MG Diltiazem HCl (Cardizem Cd Cap) 120 mg DAILY PO 09/19/16 09:00 10/19/16 08:59 09/24/16 08:06 120 MG Acetaminophen/ Hydrocodone Bitart ([place] 10/325 Tab) 1 tab TID PRN PO 09/18/16 15:45 10/02/16 15:44 09/22/16 15:58 1 TAB Magnesium Oxide (Mag-Ox Tab) 400 mg DAILY PO 09/19/16 09:00 10/19/16 08:59 09/24/16 08:07 400 MG Fish Oil ([place]-3 (Purified Fish Oil) Cap) 1 gm BID PO 09/18/16 21:00 10/18/16 20:59 09/24/16 08:06 1 GM Trazodone HCl (Desyrel Tab) 150 mg HS PO 09/18/16 21:00 10/18/16 20:59 Future Hold Vitamin B Complex/ Vit C/Folic Acid (Nephrocaps) 1 cap DAILY PO 09/19/16 09:00 10/19/16 08:59 09/24/16 08:07 1 CAP Mupirocin (Bactroban 2% Oint) 1 appln BID EXT 09/18/16 21:00 10/18/16 20:59 09/24/16 08:07 1 APPLN Pantoprazole Sodium (Protonix Tab) 40 mg DAILY PO 09/19/16 09:00 10/19/16 08:59 09/24/16 08:06 40 MG Insulin Aspart (novoLOG ASPART) SLIDING SCALE If C... ACHS SC 09/18/16 16:15 10/18/16 16:14 09/24/16 08:10 1 UNITS Glucose (Glucose 40% Gel) 15-30 GRAMS 15 GRAMS... UD PRN PO 09/18/16 15:45 10/18/16 15:44 Glucose (Glucose Chew Tab) 4-8 Tablets 4 Tabl... UD PRN PO 09/18/16 15:45 10/18/16 15:44 Dextrose (Dextrose 50% 50ML Syringe) 25-50ML OF 50% DW IV FOR... UD PRN IV 09/18/16 15:45 10/18/16 15:44 Glucagon (Glucagon Inj) 1 mg UD PRN SQ 09/18/16 15:45 10/18/16 15:44 Miscellaneous Information (Order Awaiting Action) 1 ea QS N/A 09/19/16 00:00 10/19/16 00:00 Atropine Sulfate 0.5 mg 0.5 mg UD PRN IV 09/18/16 20:45 10/18/16 20:44 Acetaminophen/ Empty Bag (Ofirmev IV/ Empty Iv Bag 100ml) 65 ml @ 260 mls/hr Q6H PRN IV 09/19/16 04:00 10/19/16 03:59 09/19/16 04:22 260 MLS/HR Objective Vital Signs Date Time Temp Pulse Resp B/P Pulse Ox O2 Delivery O2 Flow Rate FiO2 09/24/16 08:20 36.9 74 18 98/58 95 09/24/16 08:00 Nasal Cannula 2.0 09/24/16 04:24 36.6 68 18 100/44 97 Nasal Cannula 1.0 09/24/16 04:00 Nasal Cannula 2.0 09/24/16 00:00 Nasal Cannula 2.0 09/23/16 23:03 36.6 70 18 101/55 98 Nasal Cannula 1.0 09/23/16 20:00 Nasal Cannula 2.0 09/23/16 19:07 36.8 76 16 105/53 98 09/23/16 16:00 36.9 76 18 124/68 96 09/23/16 16:00 Nasal Cannula 2.0 09/23/16 12:00 Nasal Cannula 2.0 09/23/16 11:55 36.7 84 22 130/69 97 Nasal Cannula 2.0 Physical Exam General Appearance: WD/WN, no apparent distress Eyes: normal inspection, sclerae normal ENT: hearing grossly normal Neck: supple, trachea midline Respiratory/Chest: no respiratory distress, no accessory muscle use Cardiovascular: regular rate, rhythm Extremities: + pertinent finding (left lower extremity with dressing in place. c/d/i. Some mild tenderness of the lateral left foot. Note continued mild erythema of the sacral region with superficial ulcerations. Very small amount of drainage.) Neurologic/Psychiatric: alert, normal mood/affect Skin: warm/dry, + rash Laboratory Results Item Value Date Time Blood Culture - Preliminary Resulted 09/20/16 1139 Blood NO GROWTH TO DATE. Blood Culture - Preliminary Resulted 09/20/16 1115 Blood NO GROWTH TO DATE. SACRUM COCCYX MIN 2 VIEWS CLINICAL HISTORY: Evaluate for osteomyelitis. Altered mental status. COMPARISON STUDY: No previous studies for comparison. FINDINGS: A right femoral internal fixation is incidentally noted. Osteopenia is noted. There is extensive vascular calcification. There is no radiographic evidence for osteomyelitis although this study has significantly diminished sensitivity for the detection of osteomyelitis. IMPRESSION: No radiographic evidence of osteomyelitis although this study has significantly diminished sensitivity for the detection of osteomyelitis. [~ rep ct add3]] LUMBAR SPINE 2 OR 3 VIEWS CLINICAL HISTORY: Back pain. Possible osteomyelitis. COMPARISON STUDY: No previous studies for comparison. FINDINGS: The bones are osteopenic. The 2 provided lateral views are limited from a positioning standpoint. There are suspected mild superior endplate deformities at the T12-L3 level. There is age-indeterminate fracture involving the sacrococcygeal junction. It should be noted that conventional radiographic evaluation is insensitive for the detection of osteomyelitis. IMPRESSION: 1. Age-indeterminate fracture involving the sacrococcygeal junction 2. Osteopenia 3. Suspected minor superior endplate deformities T12-L3 level. Last 24 Hours Test 09/23/16 16:12 09/23/16 20:04 09/24/16 04:55 09/24/16 07:21 Bedside Glucose 140 mg/dl 206 mg/dl 108 mg/dl Random Vancomycin Level 21.8 mcg/ml Test 09/24/16 08:47 09/24/16 10:51 White Blood Count 11.58 K/uL Red Blood Count 2.60 M/uL Hemoglobin 8.1 g/dL Hematocrit 25.1 % Mean Corpuscular Volume 96.5 fL Mean Corpuscular Hemoglobin 31.2 pg Mean Corpuscular Hemoglobin Concent 32.3 g/dl RDW Standard Deviation 59.6 fL RDW Coefficient of Variation 17.3 % Platelet Count 177 K/uL Mean Platelet Volume 9.4 fL Sodium Level 132 mmol/L Potassium Level 3.8 mmol/L Chloride Level 93 mmol/L Carbon Dioxide Level 23 mmol/L Anion Gap 16.0 mmol/L Blood Urea Nitrogen 42 mg/dl Creatinine 6.70 mg/dl Est Creatinine Clear Calc Drug Dose 6.1 ml/min Estimated GFR () 6.3 Estimated GFR (Non- 5.4 BUN/Creatinine Ratio 6.3 Random Glucose 157 mg/dl Calcium Level 8.8 mg/dl Bedside Glucose 176 mg/dl Assessment and Plan Patient with left foot chronic ulcerations, sacral decubitus ulceration, left upper extremity AV fistula, and MRSA bacteremia. She is improving and her bacteremia has cleared. She is currently on IV Vancomycin. X-Rays showed no evidence of osteomyelitis within the scope of those studies. Due to chronic nature of patient's wounds and continued erythema of the sacral decubitus area, would recommend completing 4 weeks of IV Vancomycin. This may be able to be dosed with dialysis, but if not, patient will need a PICC line and at home IV antibiotic therapy. Also recommend that this patient follow up at least weekly with the wound care center for sacral decubitus/foot ulcerations. Plan: 1. Continue IV Vancomycin. Tentative stop date 2/16 2. ID F/U 3. Wound Care as outpatient as well PROVIDER ADDENDUM: Patient reviewed with Ms. Chacon. Agree with above assessment.
--- NOTE | 2016-09-24 13:24 | Progress Note ---
Internal Med Progress Note Date of Service: Sep 24, 2016. Provider Documentation: SUBJECTIVE: The patient was sen and examined Clinically better Denies any symptoms OBJECTIVE: Vital Signs-as noted below Exam: General-No distress at rest Eyes-normal ENT-normal Neck-supple Lungs-clear Heart-regular Abdomen-Benign Extremities-No edema on left -left foot is bandaged Right BKA Neuro-AAox3 Generally weak and lethargic Lab data as noted below. ASSESSMENT & PLAN: Sepsis Staph Bacteremia secondary to left foot wound Sacral decubitus ulcer stage 2-X ray does not show any Osteomyelitis On iv vanco and zosyn Blood cx mrsa Appreciate ID input I/V antibiotic for 4 weeks ,discontinue on 10/18 May be given during Dialysis otherwise will need PICC PT/OT evaluation -may need placement HYPERKALEMIA - ESRD K 6.3 on presentation Improved on Dialysis Appreciate nephrology input ANEMIA OF CHRONIC DISEASE Hgb 9 s/p 1 unit PRBCs at outpatient hospital On Procrit Hb 8.1 today Will give 1 unit PRBC during dialysis tomorrow ELEVATED TROPONIN Troponin 0.11 at [facility] Likely due to ESRD ECHO:: * The rhythm is atrial fibrillation. * Ejection Fraction = 50-55%. * The apical septum is thinned and akinetic. * The base inferoseptum is akinetic. * The mid inferoseptum is hypokinetic. * The apical inferior wall is severly hypokinetic to akinetic. * The right ventricle is mildly dilated. * The right ventricular systolic function is qualitatively normal. * The aortic valve is moderately calcified. * Mild valvular aortic stenosis. * There is mild to moderate mitral regurgitation. * There is severe tricuspid regurgitation. * The estimated systolic PAP is 83mmHg. * Dilated inferior vena cava with reduced collapsability with sniff indicates an elevated right atrial pressure of 15 mmHg No ACS Bradycardia-resolved on and off diltiazem on Hold Can restart Cardizem Left foot wounds abx as above appreciate vascular surgery inputs. Wound Care consult Will need wound care follow up and ID follow up GERD PPI HTN diltiazem held for bradycardia will monitor IDDM On Sliding Scale Insulin coverage hba1c 5.6 H/O CVA per patient's daughter on Statin DEMENTIA per patient's daughter, mild dementia DVT PROPHYLAXIS: will not anticoagulated d/t anemia, and SCDs contraindicated d/ t vascular disease CODE STATUS: Level 3 per my discussion with the patient's daughter DISPOSITION monitor in tele pt/ot once more stable social service for d/c planning will need IV antibiotic Vital Signs: Date Time Temp Pulse Resp B/P Pulse Ox O2 Delivery O2 Flow Rate FiO2 09/24/16 12:00 88 Room Air 09/24/16 11:52 36.5 73 18 102/59 94 09/24/16 08:20 36.9 74 18 98/58 95 09/24/16 08:00 Nasal Cannula 2.0 09/24/16 04:24 36.6 68 18 100/44 97 Nasal Cannula 1.0 09/24/16 04:00 Nasal Cannula 2.0 09/24/16 00:00 Nasal Cannula 2.0 09/23/16 23:03 36.6 70 18 101/55 98 Nasal Cannula 1.0 09/23/16 20:00 Nasal Cannula 2.0 09/23/16 19:07 36.8 76 16 105/53 98 09/23/16 16:00 36.9 76 18 124/68 96 09/23/16 16:00 Nasal Cannula 2.0 Lab Results: Results Past 24 Hours Test 09/23/16 16:12 09/23/16 20:04 09/24/16 04:55 09/24/16 07:21 Range/Units Bedside Glucose 140 206 108 70-90 mg/dl Random Vancomycin Level 21.8 mcg/ml Test 09/24/16 08:47 09/24/16 10:51 Range/Units White Blood Count 11.58 4.8-10.8 K/uL Red Blood Count 2.60 4.2-5.4 M/uL Hemoglobin 8.1 12.0-16.0 g/dL Hematocrit 25.1 37-47 % Mean Corpuscular Volume 96.5 80-100 fL Mean Corpuscular Hemoglobin 31.2 25-34 pg Mean Corpuscular Hemoglobin Concent 32.3 32-36 g/dl RDW Standard Deviation 59.6 36.4-46.3 fL RDW Coefficient of Variation 17.3 11.5-14.5 % Platelet Count 177 130-400 K/uL Mean Platelet Volume 9.4 7.4-10.4 fL Sodium Level 132 136-145 mmol/L Potassium Level 3.8 3.5-5.1 mmol/L Chloride Level 93 98-107 mmol/L Carbon Dioxide Level 23 21-32 mmol/L Anion Gap 16.0 3-11 mmol/L Blood Urea Nitrogen 42 7-18 mg/dl Creatinine 6.70 0.60-1.20 mg/dl Est Creatinine Clear Calc Drug Dose 6.1 ml/min Estimated GFR () 6.3 Estimated GFR (Non- 5.4 BUN/Creatinine Ratio 6.3 10-20 Random Glucose 157 70-99 mg/dl Calcium Level 8.8 8.5-10.1 mg/dl Bedside Glucose 176 70-90 mg/dl
--- NOTE | 2016-09-24 16:36 | Nephrology Progress Note ---
Nephrology Progress Note Date of Service: Sep 24, 2016. Subjective 76 yo female with dialysis t-h-s at the [facility] followed by Dr. Harrington. has significant vascular disease. has wound on right foot which is not healing well. presented with sepsis and hyperkalemia. pt with staph bacteremia. on vancomycin. pt was frustrated this morning and I spoke to her and answered her questions. she wants to go home when possible. pt after conversation smiled and appeared to be better. Objective Date Time Temp Pulse Resp B/P Pulse Ox O2 Delivery O2 Flow Rate FiO2 09/24/16 16:00 94 Nasal Cannula 1.0 09/24/16 15:55 36.8 67 18 104/43 95 2.0 09/24/16 12:00 88 Room Air 09/24/16 11:52 36.5 73 18 102/59 94 09/24/16 08:20 36.9 74 18 98/58 95 09/24/16 08:00 Nasal Cannula 2.0 09/24/16 04:24 36.6 68 18 100/44 97 Nasal Cannula 1.0 09/24/16 04:00 Nasal Cannula 2.0 09/24/16 00:00 Nasal Cannula 2.0 09/23/16 23:03 36.6 70 18 101/55 98 Nasal Cannula 1.0 09/23/16 20:00 Nasal Cannula 2.0 09/23/16 19:07 36.8 76 16 105/53 98 Physical Exam: General-aaox3 Eyes-no scleral icterus ENT-mmm Neck-supple Lungs-cta Heart-irregular Abdomen-bs+ s/nt/nd Extremities-right bka, left foot with open wound Neuro-nonfocal Current Inpatient Medications Medications (Trade) Dose Ordered Sig/Herlinda Route Start Time Stop Time Status Last Admin Dose Admin Acetaminophen (Tylenol Tab) 650 mg Q4H PRN PO 09/18/16 15:00 10/18/16 14:59 Ondansetron HCl (Zofran Inj) 4 mg Q6H PRN IV 09/18/16 15:00 10/18/16 14:59 Nitroglycerin (Nitrostat Tab) 0.4 mg UD PRN SL 09/18/16 15:00 10/18/16 14:59 Vancomycin HCl (Consult) 1 ea UD PRN N/A 09/18/16 15:37 10/18/16 15:36 Atorvastatin Calcium (Lipitor Tab) 20 mg DAILY PO 09/19/16 09:00 10/19/16 08:59 09/24/16 08:07 20 MG Diltiazem HCl (Cardizem Cd Cap) 120 mg DAILY PO 09/19/16 09:00 10/19/16 08:59 09/24/16 08:06 120 MG Acetaminophen/ Hydrocodone Bitart ([place] 10/325 Tab) 1 tab TID PRN PO 09/18/16 15:45 10/02/16 15:44 09/22/16 15:58 1 TAB Magnesium Oxide (Mag-Ox Tab) 400 mg DAILY PO 09/19/16 09:00 10/19/16 08:59 09/24/16 08:07 400 MG Fish Oil ([place]-3 (Purified Fish Oil) Cap) 1 gm BID PO 09/18/16 21:00 10/18/16 20:59 09/24/16 08:06 1 GM Trazodone HCl (Desyrel Tab) 150 mg HS PO 09/18/16 21:00 10/18/16 20:59 Future Hold Vitamin B Complex/ Vit C/Folic Acid (Nephrocaps) 1 cap DAILY PO 09/19/16 09:00 10/19/16 08:59 09/24/16 08:07 1 CAP Mupirocin (Bactroban 2% Oint) 1 appln BID EXT 09/18/16 21:00 10/18/16 20:59 09/24/16 08:07 1 APPLN Pantoprazole Sodium (Protonix Tab) 40 mg DAILY PO 09/19/16 09:00 10/19/16 08:59 09/24/16 08:06 40 MG Insulin Aspart (novoLOG ASPART) SLIDING SCALE If C... ACHS SC 09/18/16 16:15 10/18/16 16:14 09/24/16 12:35 4 UNITS Glucose (Glucose 40% Gel) 15-30 GRAMS 15 GRAMS... UD PRN PO 09/18/16 15:45 10/18/16 15:44 Glucose (Glucose Chew Tab) 4-8 Tablets 4 Tabl... UD PRN PO 09/18/16 15:45 10/18/16 15:44 Dextrose (Dextrose 50% 50ML Syringe) 25-50ML OF 50% DW IV FOR... UD PRN IV 09/18/16 15:45 10/18/16 15:44 Glucagon (Glucagon Inj) 1 mg UD PRN SQ 09/18/16 15:45 10/18/16 15:44 Miscellaneous Information (Order Awaiting Action) 1 ea QS N/A 09/19/16 00:00 10/19/16 00:00 Atropine Sulfate 0.5 mg 0.5 mg UD PRN IV 09/18/16 20:45 10/18/16 20:44 Acetaminophen/ Empty Bag (Ofirmev IV/ Empty Iv Bag 100ml) 65 ml @ 260 mls/hr Q6H PRN IV 09/19/16 04:00 10/19/16 03:59 09/19/16 04:22 260 MLS/HR Last 24 Hours Test 09/23/16 20:04 09/24/16 04:55 09/24/16 07:21 09/24/16 08:47 Bedside Glucose 206 mg/dl 108 mg/dl Random Vancomycin Level 21.8 mcg/ml White Blood Count 11.58 K/uL Red Blood Count 2.60 M/uL Hemoglobin 8.1 g/dL Hematocrit 25.1 % Mean Corpuscular Volume 96.5 fL Mean Corpuscular Hemoglobin 31.2 pg Mean Corpuscular Hemoglobin Concent 32.3 g/dl RDW Standard Deviation 59.6 fL RDW Coefficient of Variation 17.3 % Platelet Count 177 K/uL Mean Platelet Volume 9.4 fL Sodium Level 132 mmol/L Potassium Level 3.8 mmol/L Chloride Level 93 mmol/L Carbon Dioxide Level 23 mmol/L Anion Gap 16.0 mmol/L Blood Urea Nitrogen 42 mg/dl Creatinine 6.70 mg/dl Est Creatinine Clear Calc Drug Dose 6.1 ml/min Estimated GFR () 6.3 Estimated GFR (Non- 5.4 BUN/Creatinine Ratio 6.3 Random Glucose 157 mg/dl Calcium Level 8.8 mg/dl Test 09/24/16 10:51 09/24/16 16:24 Bedside Glucose 176 mg/dl 182 mg/dl Assessment & Plan ESRD-plan on dialysis t/h/s. no dialysis needed today. spoke to [facility]. ok to give vancomycin at the unit so no indication for picc line at this time. Anemia of renal failure-hg in the 8s and will plan on procrit tomorrow on dialysis.
[2016-09-25] VITALS (21 sets, daily range): BP systolic 79–130; BP diastolic 45–66; PULSE 61–89; TEMP 36.6–36.8; O2SAT 91–99
[2016-09-25 05:50] LABS: HEMATOCRIT 24.1 % (37-47); MEAN CELL VOLUME 94.5 fL (80-100); MEAN CORPUSCULAR HEMOGLOBIN 31.4 pg (25-34); MEAN CORPUSCULAR HGB CONC 33.2 g/dl (32-36); MEAN PLATELET VOLUME 9.3 fL (7.4-10.4); PLATELET COUNT 191 K/uL (130-400); RED BLOOD COUNT 2.55 M/uL (4.2-5.4); WHITE BLOOD COUNT 10.12 K/uL (4.8-10.8)
[2016-09-25 06:30] LABS: BUN/CREATININE RATIO 6.6 (10-20); CALCIUM 8.5 mg/dl (8.5-10.1); CREATININE 7.7 mg/dl (0.60-1.20); POTASSIUM 3.6 mmol/L (3.5-5.1)
--- NOTE | 2016-09-25 07:24 | Nephrology Progress Note ---
Nephrology Progress Note Date of Service: Sep 25, 2016. Subjective 76 yo female with dialysis t-h-s at the [facility] followed by Dr. Harrington. pt is in good spirits today and smiling at me. more awake and alert. does not need picc line. ok to do vanco at dialysis unit. pt feels good. inquiring about when to go home. Objective Date Time Temp Pulse Resp B/P Pulse Ox O2 Delivery O2 Flow Rate FiO2 09/25/16 04:00 Nasal Cannula 2.0 09/25/16 03:57 36.7 73 14 118/61 99 Nasal Cannula 2.0 09/25/16 00:00 36.7 61 14 104/52 98 Nasal Cannula 2.0 09/24/16 23:59 Nasal Cannula 2.0 09/24/16 20:05 37.0 66 16 98/41 98 2.0 09/24/16 20:00 Nasal Cannula 2.0 09/24/16 16:00 94 Nasal Cannula 1.0 09/24/16 15:55 36.8 67 18 104/43 95 2.0 09/24/16 12:00 88 Room Air 09/24/16 11:52 36.5 73 18 102/59 94 09/24/16 08:20 36.9 74 18 98/58 95 09/24/16 08:00 Nasal Cannula 2.0 Physical Exam: General-aaox3 Eyes-no scleral icterus ENT-mmm Neck-supple Lungs-clear Heart-irregular Abdomen-bs+ s/nt/nd Extremities-right bka, left foot with open wound Neuro-nonfocal Current Inpatient Medications Medications (Trade) Dose Ordered Sig/Herlinda Route Start Time Stop Time Status Last Admin Dose Admin Acetaminophen (Tylenol Tab) 650 mg Q4H PRN PO 09/18/16 15:00 10/18/16 14:59 Ondansetron HCl (Zofran Inj) 4 mg Q6H PRN IV 09/18/16 15:00 10/18/16 14:59 Nitroglycerin (Nitrostat Tab) 0.4 mg UD PRN SL 09/18/16 15:00 10/18/16 14:59 Vancomycin HCl (Consult) 1 ea UD PRN N/A 09/18/16 15:37 10/18/16 15:36 Atorvastatin Calcium (Lipitor Tab) 20 mg DAILY PO 09/19/16 09:00 10/19/16 08:59 09/24/16 08:07 20 MG Diltiazem HCl (Cardizem Cd Cap) 120 mg DAILY PO 09/19/16 09:00 10/19/16 08:59 09/24/16 08:06 120 MG Acetaminophen/ Hydrocodone Bitart ([place] 10/325 Tab) 1 tab TID PRN PO 09/18/16 15:45 10/02/16 15:44 09/22/16 15:58 1 TAB Magnesium Oxide (Mag-Ox Tab) 400 mg DAILY PO 09/19/16 09:00 10/19/16 08:59 09/24/16 08:07 400 MG Fish Oil ([place]-3 (Purified Fish Oil) Cap) 1 gm BID PO 09/18/16 21:00 10/18/16 20:59 09/24/16 19:38 1 GM Trazodone HCl (Desyrel Tab) 150 mg HS PO 09/18/16 21:00 10/18/16 20:59 Future Hold Vitamin B Complex/ Vit C/Folic Acid (Nephrocaps) 1 cap DAILY PO 09/19/16 09:00 10/19/16 08:59 09/24/16 08:07 1 CAP Mupirocin (Bactroban 2% Oint) 1 appln BID EXT 09/18/16 21:00 10/18/16 20:59 09/24/16 19:59 1 APPLN Pantoprazole Sodium (Protonix Tab) 40 mg DAILY PO 09/19/16 09:00 10/19/16 08:59 09/24/16 08:06 40 MG Insulin Aspart (novoLOG ASPART) SLIDING SCALE If C... ACHS SC 09/18/16 16:15 10/18/16 16:14 09/24/16 21:02 2 UNITS Glucose (Glucose 40% Gel) 15-30 GRAMS 15 GRAMS... UD PRN PO 09/18/16 15:45 10/18/16 15:44 Glucose (Glucose Chew Tab) 4-8 Tablets 4 Tabl... UD PRN PO 09/18/16 15:45 10/18/16 15:44 Dextrose (Dextrose 50% 50ML Syringe) 25-50ML OF 50% DW IV FOR... UD PRN IV 09/18/16 15:45 10/18/16 15:44 Glucagon (Glucagon Inj) 1 mg UD PRN SQ 09/18/16 15:45 10/18/16 15:44 Miscellaneous Information (Order Awaiting Action) 1 ea QS N/A 09/19/16 00:00 10/19/16 00:00 Atropine Sulfate 0.5 mg 0.5 mg UD PRN IV 09/18/16 20:45 10/18/16 20:44 Acetaminophen/ Empty Bag (Ofirmev IV/ Empty Iv Bag 100ml) 65 ml @ 260 mls/hr Q6H PRN IV 09/19/16 04:00 10/19/16 03:59 09/19/16 04:22 260 MLS/HR Epoetin Edis (Procrit Inj) 10,000 units TODAY@0800 IV. 09/25/16 08:00 09/25/16 18:00 Albumin Human (Albumin 25%) 12.5 gm TODAY@0800 IV 09/25/16 08:00 09/25/16 18:00 Last 24 Hours Test 09/24/16 08:47 09/24/16 10:51 09/24/16 16:24 09/24/16 20:36 White Blood Count 11.58 K/uL Red Blood Count 2.60 M/uL Hemoglobin 8.1 g/dL Hematocrit 25.1 % Mean Corpuscular Volume 96.5 fL Mean Corpuscular Hemoglobin 31.2 pg Mean Corpuscular Hemoglobin Concent 32.3 g/dl RDW Standard Deviation 59.6 fL RDW Coefficient of Variation 17.3 % Platelet Count 177 K/uL Mean Platelet Volume 9.4 fL Sodium Level 132 mmol/L Potassium Level 3.8 mmol/L Chloride Level 93 mmol/L Carbon Dioxide Level 23 mmol/L Anion Gap 16.0 mmol/L Blood Urea Nitrogen 42 mg/dl Creatinine 6.70 mg/dl Est Creatinine Clear Calc Drug Dose 6.1 ml/min Estimated GFR () 6.3 Estimated GFR (Non- 5.4 BUN/Creatinine Ratio 6.3 Random Glucose 157 mg/dl Calcium Level 8.8 mg/dl Bedside Glucose 176 mg/dl 182 mg/dl 181 mg/dl Test 09/25/16 05:16 09/25/16 06:36 White Blood Count 10.12 K/uL Red Blood Count 2.55 M/uL Hemoglobin 8.0 g/dL Hematocrit 24.1 % Mean Corpuscular Volume 94.5 fL Mean Corpuscular Hemoglobin 31.4 pg Mean Corpuscular Hemoglobin Concent 33.2 g/dl RDW Standard Deviation 59.3 fL RDW Coefficient of Variation 17.3 % Platelet Count 191 K/uL Mean Platelet Volume 9.3 fL Sodium Level 133 mmol/L Potassium Level 3.6 mmol/L Chloride Level 94 mmol/L Carbon Dioxide Level 25 mmol/L Anion Gap 14.0 mmol/L Blood Urea Nitrogen 51 mg/dl Creatinine 7.70 mg/dl Est Creatinine Clear Calc Drug Dose 5.3 ml/min Estimated GFR () 5.3 Estimated GFR (Non- 4.6 BUN/Creatinine Ratio 6.6 Random Glucose 120 mg/dl Calcium Level 8.5 mg/dl Bedside Glucose 121 mg/dl Assessment & Plan ESRD-plan on dialysis today and remove fluid as bp tolerates today. ok to give vancomycin at the outpatient unit so no indication for picc line at this time. Anemia of renal failure-will give a dose of procrit today to help raise hg levels and try to prevent blood transfusion.
[2016-09-25] MEDS ORDERED: EPOETIN ALFA 10,000 UNITS/ML VIAL IV. SCH (08:00)
[2016-09-25] MEDS ORDERED: ALBUMIN HUMAN 25% 12.5 GM/50 ML VIAL IV SCH (08:00)
[2016-09-25] MEDS: INSULIN ASPART 100 UNITS/ML 3 ML PEN SC SCH ×4 (08:56→21:54)
[2016-09-25] MEDS: MUPIROCIN 2% OINT 22 GM TUBE EXT SCH ×2 (09:00→22:18)
--- NOTE | 2016-09-25 12:20 | Progress Note ---
Internal Med Progress Note Date of Service: Sep 25, 2016. Provider Documentation: SUBJECTIVE: The patient was seen and examined Clinically much better Denies any symptoms Will get Physical therapy today again OBJECTIVE: Vital Signs-as noted below Exam: General-No distress at rest Eyes-normal ENT-normal Neck-supple Lungs-clear Heart-regular Abdomen-Benign Extremities-No edema on left -left foot is bandaged Right BKA Neuro-AAox3 Generally weak and lethargic Lab data as noted below. ASSESSMENT & PLAN: Sepsis Staph Bacteremia secondary to left foot wound Sacral decubitus ulcer stage 2-X ray does not show any Osteomyelitis On iv vanco and zosyn Blood cx mrsa Appreciate ID input Zosyn discontinued I/V antibiotic for 4 weeks ,discontinue on 10/18 Antibiotic can be given at dialysis Will need follow up with her Vascular Surgeon at [place] HYPERKALEMIA - ESRD K 6.3 on presentation Improved on Dialysis Appreciate nephrology input ANEMIA OF CHRONIC DISEASE Hgb 9 s/p 1 unit PRBCs at outpatient hospital On Procrit Hb 8.1 today Will give 1 unit PRBC during dialysis tomorrow No Blood transfusion as per [employer] ELEVATED TROPONIN Troponin 0.11 at [facility] Likely due to ESRD ECHO:: * The rhythm is atrial fibrillation. * Ejection Fraction = 50-55%. * The apical septum is thinned and akinetic. * The base inferoseptum is akinetic. * The mid inferoseptum is hypokinetic. * The apical inferior wall is severly hypokinetic to akinetic. * The right ventricle is mildly dilated. * The right ventricular systolic function is qualitatively normal. * The aortic valve is moderately calcified. * Mild valvular aortic stenosis. * There is mild to moderate mitral regurgitation. * There is severe tricuspid regurgitation. * The estimated systolic PAP is 83mmHg. * Dilated inferior vena cava with reduced collapsability with sniff indicates an elevated right atrial pressure of 15 mmHg No ACS Bradycardia-resolved on and off diltiazem on Hold Can restart Cardizem Remains stable Left foot wounds abx as above appreciate vascular surgery inputs. Wound Care consult Will need wound care follow up and ID follow up Outpatient Vascular Surgery follow up GERD PPI HTN Controlled now IDDM On Sliding Scale Insulin coverage hba1c 5.6 H/O CVA per patient's daughter on Statin DEMENTIA per patient's daughter, mild dementia DVT PROPHYLAXIS: will not anticoagulated d/t anemia, and SCDs contraindicated d/ t vascular disease CODE STATUS: Level 3 per my discussion with the patient's daughter DISPOSITION monitor in tele Continue PT/OT Likely to go to Rehab tomorrow Vital Signs: Date Time Temp Pulse Resp B/P Pulse Ox O2 Delivery O2 Flow Rate FiO2 09/25/16 12:00 74 101/57 09/25/16 11:45 76 111/45 09/25/16 11:30 80 92/52 09/25/16 11:15 82 106/58 09/25/16 11:00 69 98/54 09/25/16 10:45 72 96/54 09/25/16 10:30 79 99/50 09/25/16 10:15 76 93/49 09/25/16 10:00 78 92/48 09/25/16 09:45 73 79/48 09/25/16 09:30 74 99/50 09/25/16 09:20 71 99/51 09/25/16 08:56 36.8 69 130/49 09/25/16 08:08 36.8 68 18 102/50 98 Nasal Cannula 4.0 09/25/16 08:00 96 Room Air 09/25/16 04:00 Nasal Cannula 2.0 09/25/16 03:57 36.7 73 14 118/61 99 Nasal Cannula 2.0 09/25/16 00:00 36.7 61 14 104/52 98 Nasal Cannula 2.0 09/24/16 23:59 Nasal Cannula 2.0 09/24/16 20:05 37.0 66 16 98/41 98 2.0 09/24/16 20:00 Nasal Cannula 2.0 09/24/16 16:00 94 Nasal Cannula 1.0 09/24/16 15:55 36.8 67 18 104/43 95 2.0 Lab Results: Results Past 24 Hours Test 09/24/16 16:24 09/24/16 20:36 09/25/16 05:16 09/25/16 06:36 Range/Units Bedside Glucose 182 181 121 70-90 mg/dl White Blood Count 10.12 4.8-10.8 K/uL Red Blood Count 2.55 4.2-5.4 M/uL Hemoglobin 8.0 12.0-16.0 g/dL Hematocrit 24.1 37-47 % Mean Corpuscular Volume 94.5 80-100 fL Mean Corpuscular Hemoglobin 31.4 25-34 pg Mean Corpuscular Hemoglobin Concent 33.2 32-36 g/dl RDW Standard Deviation 59.3 36.4-46.3 fL RDW Coefficient of Variation 17.3 11.5-14.5 % Platelet Count 191 130-400 K/uL Mean Platelet Volume 9.3 7.4-10.4 fL Sodium Level 133 136-145 mmol/L Potassium Level 3.6 3.5-5.1 mmol/L Chloride Level 94 98-107 mmol/L Carbon Dioxide Level 25 21-32 mmol/L Anion Gap 14.0 3-11 mmol/L Blood Urea Nitrogen 51 7-18 mg/dl Creatinine 7.70 0.60-1.20 mg/dl Est Creatinine Clear Calc Drug Dose 5.3 ml/min Estimated GFR () 5.3 Estimated GFR (Non- 4.6 BUN/Creatinine Ratio 6.6 10-20 Random Glucose 120 70-99 mg/dl Calcium Level 8.5 8.5-10.1 mg/dl Test 09/25/16 10:59 Range/Units Bedside Glucose 131 70-90 mg/dl
[2016-09-25] MEDS: ATORVASTATIN 20 MG TAB PO SCH (13:25)
[2016-09-25] MEDS: DILTIAZEM HCL 120 MG CAPCR PO SCH (13:25)
[2016-09-25] MEDS: MAGNESIUM OXIDE 400 MG TAB PO SCH (13:26)
[2016-09-25] MEDS: OMEGA-3 (PURIFIED FISH OIL) 1 GM CAP PO SCH ×2 (13:27→20:22)
[2016-09-25] MEDS: NEPHROCAPS PO SCH (13:27)
[2016-09-25] MEDS: PANTOprazole SOD 40 MG TAB PO SCH (13:28)
[2016-09-25] MEDS ORDERED: VANCOMYCIN INJ 500 MG in SODIUM CHLORIDE 0.9% 250ML 250 ML IV SCH (14:00)
[2016-09-25] MEDS ORDERED: NURSING DECISION MEDICATION ORDER SCH (20:45)
[2016-09-25] MEDS ORDERED: MICONAZOLE NITRATE POWDER 43 GM EXT PRN (21:00)
[2016-09-26 00:11] VITALS: BP 98/55; PULSE 72; TEMP 36.7; O2SAT 94
[2016-09-26 07:02] VITALS: BP 111/63; PULSE 71; TEMP 36.7; O2SAT 96
[2016-09-26 07:41] LABS: HEMATOCRIT 25.9 % (37-47); MEAN CELL VOLUME 95.6 fL (80-100); MEAN CORPUSCULAR HEMOGLOBIN 30.6 pg (25-34); MEAN PLATELET VOLUME 9.3 fL (7.4-10.4); PLATELET COUNT 221 K/uL (130-400); RED BLOOD COUNT 2.71 M/uL (4.2-5.4); WHITE BLOOD COUNT 10.45 K/uL (4.8-10.8)
[2016-09-26 08:00] VITALS: O2SAT 96
[2016-09-26 08:26] LABS: BUN/CREATININE RATIO 4.9 (10-20); CALCIUM 8.8 mg/dl (8.5-10.1); POTASSIUM 3.9 mmol/L (3.5-5.1)
[2016-09-26] MEDS: OMEGA-3 (PURIFIED FISH OIL) 1 GM CAP PO SCH (08:38)
[2016-09-26] MEDS: MAGNESIUM OXIDE 400 MG TAB PO SCH (08:39)
[2016-09-26] MEDS: ATORVASTATIN 20 MG TAB PO SCH (08:39)
[2016-09-26] MEDS: PANTOprazole SOD 40 MG TAB PO SCH (08:39)
[2016-09-26] MEDS: NEPHROCAPS PO SCH (08:39)
[2016-09-26 08:40] VITALS: BP 117/69; PULSE 80
[2016-09-26] MEDS: DILTIAZEM HCL 120 MG CAPCR PO SCH (08:40)
[2016-09-26] MEDS: MUPIROCIN 2% OINT 22 GM TUBE EXT SCH (08:41)
[2016-09-26] MEDS: INSULIN ASPART 100 UNITS/ML 3 ML PEN SC SCH ×2 (08:46→14:18)
--- NOTE | 2016-09-26 11:00 | Progress Note ---
Internal Med Progress Note Date of Service: Sep 26, 2016. Provider Documentation: SUBJECTIVE: The patient was seen and examined Clinically much better Denies any symptoms today Wants to get out of the hospital OBJECTIVE: Vital Signs-as noted below Exam: General-No distress at rest Denies any symptoms Eyes-normal ENT-normal Neck-supple Lungs-clear Heart-regular Abdomen-Benign Extremities-No edema on left -left foot is bandaged Right BKA Neuro-AAox3 Generally weak and lethargic Generalized bruising Lab data as noted below. ASSESSMENT & PLAN: Sepsis Staph Bacteremia secondary to left foot wound Sacral decubitus ulcer stage 2-X ray does not show any Osteomyelitis On iv vanco and zosyn Blood cx mrsa Appreciate ID input Zosyn discontinued I/V antibiotic for 4 weeks ,discontinue on 10/18 Antibiotic can be given at dialysis Will need follow up with her Vascular Surgeon at [place] - discussed with Daughter Check Level before Dialysis ,maintain at ~15 to 20 and give 500 mg IV after dialysis HYPERKALEMIA - ESRD K 6.3 on presentation Improved on Dialysis Appreciate nephrology input ANEMIA OF CHRONIC DISEASE Hgb 9 s/p 1 unit PRBCs at outpatient hospital On Procrit Hb 8.1 today Will give 1 unit PRBC during dialysis tomorrow No Blood transfusion as per [employer] Hb 8.3 today 09/26/16 ELEVATED TROPONIN Troponin 0.11 at [facility] Likely due to ESRD ECHO:: * The rhythm is atrial fibrillation. * Ejection Fraction = 50-55%. * The apical septum is thinned and akinetic. * The base inferoseptum is akinetic. * The mid inferoseptum is hypokinetic. * The apical inferior wall is severly hypokinetic to akinetic. * The right ventricle is mildly dilated. * The right ventricular systolic function is qualitatively normal. * The aortic valve is moderately calcified. * Mild valvular aortic stenosis. * There is mild to moderate mitral regurgitation. * There is severe tricuspid regurgitation. * The estimated systolic PAP is 83mmHg. * Dilated inferior vena cava with reduced collapsability with sniff indicates an elevated right atrial pressure of 15 mmHg No ACS Bradycardia-resolved on and off diltiazem on Hold Can restart Cardizem Remains stable Left foot wounds abx as above appreciate vascular surgery inputs. Wound Care consult Will need wound care follow up and ID follow up Outpatient Vascular Surgery follow up Wound care Instruction::Edmundtostat to left lateral 4th toe. Betadine to all other areas of eschar on left foot. allow to dry. single 2x2 between toes. cover with kerlix. change daily, waffle boot. turn at least [id number] to buttocks and coccyx wounds- cleanse with saline. cover with optifoam. change q3days and prn GERD PPI HTN Controlled now IDDM On Sliding Scale Insulin coverage hba1c 5.6 H/O CVA per patient's daughter on Statin DEMENTIA per patient's daughter, mild dementia DVT PROPHYLAXIS: will not anticoagulated d/t anemia, and SCDs contraindicated d/ t vascular disease CODE STATUS: Level 3 per my discussion with the patient's daughter DISPOSITION Discharge to Rehab Vital Signs: Date Time Temp Pulse Resp B/P Pulse Ox O2 Delivery O2 Flow Rate FiO2 09/26/16 08:40 80 117/69 09/26/16 07:02 36.7 71 18 111/63 96 Room Air 09/26/16 00:11 36.7 72 18 98/55 94 Room Air 09/26/16 00:00 Room Air 09/25/16 21:00 Room Air 09/25/16 18:47 36.6 87 18 107/66 92 09/25/16 18:03 36.6 82 20 91 4.0 09/25/16 16:00 Room Air 09/25/16 14:59 36.6 82 20 100/53 91 Room Air 09/25/16 13:00 36.6 89 97/53 09/25/16 12:05 Room Air 09/25/16 12:00 74 101/57 09/25/16 11:45 76 111/45 09/25/16 11:30 80 92/52 09/25/16 11:15 82 106/58 09/25/16 11:00 69 98/54 Lab Results: Results Past 24 Hours Test 09/25/16 10:59 09/25/16 16:04 09/25/16 20:04 09/26/16 07:00 Range/Units Bedside Glucose 131 186 154 70-90 mg/dl White Blood Count 10.45 4.8-10.8 K/uL Red Blood Count 2.71 4.2-5.4 M/uL Hemoglobin 8.3 12.0-16.0 g/dL Hematocrit 25.9 37-47 % Mean Corpuscular Volume 95.6 80-100 fL Mean Corpuscular Hemoglobin 30.6 25-34 pg Mean Corpuscular Hemoglobin Concent 32.0 32-36 g/dl RDW Standard Deviation 60.0 36.4-46.3 fL RDW Coefficient of Variation 17.4 11.5-14.5 % Platelet Count 221 130-400 K/uL Mean Platelet Volume 9.3 7.4-10.4 fL Sodium Level 135 136-145 mmol/L Potassium Level 3.9 3.5-5.1 mmol/L Chloride Level 97 98-107 mmol/L Carbon Dioxide Level 25 21-32 mmol/L Anion Gap 13.0 3-11 mmol/L Blood Urea Nitrogen 24 7-18 mg/dl Creatinine 5.00 0.60-1.20 mg/dl Est Creatinine Clear Calc Drug Dose 8.3 ml/min Estimated GFR () 8.9 Estimated GFR (Non- 7.7 BUN/Creatinine Ratio 4.9 10-20 Random Glucose 127 70-99 mg/dl Calcium Level 8.8 8.5-10.1 mg/dl Test 09/26/16 07:32 Range/Units Bedside Glucose 121 70-90 mg/dl
[2016-09-26] MEDS ORDERED: Vancomycin Consult Active (11:18)
--- NOTE | 2016-09-26 11:24 | Discharge Instructions ---
Discharge Instructions Admission Reason for Admission: Altered Mental Status Discharge Discharge Diagnosis / Problem: Staph Bacteremia,Left foot wound,ESRD on HD Discharge Goals Goal(s): Prevent Disease Progression Activity Recommendations Activity Level: Assistance Required Therapies: Physical Therapy, Occupational Therapy . Additional Information Patient informed of condition: Yes Advance Directives: No DNR: No (Full without Mechanical Ventilation) Level of Care: Skilled Communicable Disease: No Prognosis: Stable Oxygen at (LPM): 2 liters/min as needed [place] Catheter: No Instructions / Follow-Up Instructions / Follow-Up Please make an appointment with your PCP in 1 week,Continue Dialysis and Make an appointment with Vascular Surgeon Current Hospital Diet Patient's current hospital diet: Renal Diet, Diabetes Type 2 Diet Discharge Diet Recommended Diet: Diabetes Type 2 Diet Fluid Restriction: 1500 ml (6 cups) Pending Studies Studies pending at discharge: no Physician Orders On Transfer Dressing Changes: Wound care Instruction::Kaltostat to left lateral 4th toe. Betadine to all other areas of eschar on left foot. allow to dry. single 2x2 between toes. cover with kerlix. change daily, waffle boot. turn at least [id number] to buttocks and coccyx wounds- cleanse with saline. cover with optifoam. change q3days and prn Laboratory Results Hemoglobin A1c Test 09/19/16 02:46 Range/Units Estimated Average Glucose 114 mg/dl Hemoglobin A1c 5.6 4.5-5.6 % Medical Emergencies . Who to Call and When: Medical Emergencies: If at any time you feel your situation is an emergency, please call 911 immediately. . Non-Emergent Contact Non-Emergency issues call your: Primary Care Provider . Past History Medical & Surgical History: (1) Hyperkalemia (2) Altered mental status (3) HTN (hypertension) (4) CVA (cerebral vascular accident) (5) Diabetes mellitus, insulin dependent (IDDM), controlled (6) GERD (gastroesophageal reflux disease) (7) Anemia (8) ESRD (end stage renal disease) . "Provider Documentation" section prepared by Nelson Contreras. Core Measure Problem Core Measures: None
--- NOTE | 2016-09-26 18:28 | Discharge Summary ---
Discharge Summary Admission Date: Sep 18, 2016 at 14:27 Discharge Date: Sep 26, 2016 Discharge Disposition: [facility] facility Principal Diagnosis: Staph Aureus Bacteremia,Left foot wound,ESRD on HD Secondary Diagnoses/Problems: Please see H&P Consultations: Nephrology,Vascular and ID Medication Reconciliation New Medications: [Vancomycin Consult Active] () 1 EA MISC 1 EA N/A UD PRN for NOTIFICATION Check trough level before dialysis ~15 to 20 Vancomycin 500mg IV after dialysis Stop on 10/18/2016 Continued Medications: Atorvastatin (Lipitor) 20 Mg Tab 1 TAB PO DAILY for 30 Days, #30 TAB 5 Refills Diltiazem Hcl Coated Beads (Diltiazem Hcl Er) 120 Mg Cap 1 CAP PO DAILY for 90 Days, #90 CAP 1 Refill Doxepin Hcl (Sleep) (Silenor) 3 Mg Tab 3 MG PO HS Hydrocodone/Acetaminophen 10MG/325MG ([place] 10MG/325MG) Tab 1 TAB PO TID PRN for Pain for 30 Days, #90 TAB PRN PAIN Insulin Human Regular (Humulin R) 1 Ea Inj Has been on Sliding scale Insulin coverage in hospital.Continue insulin the way she was getting before Magnesium Oxide (Mag-Ox) 400 Mg Tab 400 MG PO DAILY, TAB Mupirocin 2% (Bactroban 2%) 30 Gm Cr 1 APPLN EXT BID, TUBE [id number]-[id number] Ethyl Esters (Dyer-3) 1 Cap Cap 1 CAP PO BID for 30 Days, #60 CAP 5 Refills Omeprazole (Prilosec) 20 Mg Cap 20 MG PO DAILY, CAP Trazodone HCl (Trazodone HCl) 100 Mg Tab 150 MG PO HS Vitamin B Cmplx/Vitc/Folic Ac (Nephrocaps) Cap 1 CAP PO DAILY for 30 Days, #30 CAP 11 Refills [lovaza ] () 1 GM PO BID Admission Information HPI (per Admitting provider): Patient seen and examined. 76 year old female with PMHx of IDDM, HTN, ESRD on dialysis and other problems listed below is seen as a direct admission from [facility] for AMS, hyperkalemia, and need for dialysis. Patient's history is taken primarily from her daughter who states that patient has had a lot of pain in her left foot that had toes amputated all weekend, she also hasn' t been sleeping well. Today when she wokeup she appears generally weak and lethargic, and was not answer questions appropriately. She was scheduled to have a unit of PRBCs today before dialysis but her daughter didn't think she could take her there so she called EMS who took her to the ED. In the ED patient was afebrile, CT head was negative, WBC count was 16K, K was 6.3. Troponin was 0.11 She received her 1 unit of PRBCs. [place] does not have dialysis so transfer to [facility] was requested. Currently the patient is resting comfortably, her daughter states she seems more confused since having dilaudid at [place]. She reports that the patient was to have the blood transfusion before she had a repeat toe amputation, that procedure has been cancelled until the patient is medically stable. Patient denies fevers, chills, chest pain, SOB , nausea, vomiting, diarrhea. She does not urinate. She answers questions appropriately. Repeat labs are pending. She will be admitted for further workup and treatment. Past Medical/Surgical History Medical Problems: (1) Anemia Status: Chronic (2) CVA (cerebral vascular accident) Status: Chronic (3) Diabetes mellitus, insulin dependent (IDDM), controlled Status: Chronic (4) ESRD (end stage renal disease) Status: Chronic (5) GERD (gastroesophageal reflux disease) Status: Chronic (6) HTN (hypertension) Status: Chronic Family History Noncontributory d/t age Social History Smoking Status: Never Smoker Alcohol Use: none Housing status: lives with family Allergies Coded Allergies: Allopurinol (Unverified Allergy, Unknown, HIVES, 09/18/16) unknown reaction Cyclobenzaprine (Unverified Allergy, Unknown, DELIRIUM, 09/18/16) Sulfamethoxazole w/Trimethoprim (Unverified Allergy, Unknown, DELIRIUM, ) Home Medications Scheduled Atorvastatin (Lipitor), 1 TAB PO DAILY Diltiazem Hcl Coated Beads (Diltiazem Hcl Er), 1 CAP PO DAILY Doxepin Hcl (Sleep) (Silenor), 3 MG PO HS Magnesium Oxide (Mag-Ox), 400 MG PO DAILY Mupirocin 2% (Bactroban 2%), 1 APPLN EXT BID Wqiil-3-Tbbx Ethyl Esters (Dyer-3), 1 CAP PO BID Omeprazole (Prilosec), 20 MG PO DAILY Trazodone HCl (Trazodone HCl), 150 MG PO HS Vitamin B Cmplx/Vitc/Folic Ac (Nephrocaps), 1 CAP PO DAILY [lovaza ], 1 GM PO BID Scheduled PRN Hydrocodone/Acetaminophen 10MG/325MG ([place] 10MG/325MG), 1 TAB PO TID PRN for Pain Miscellaneous Medications Insulin Human Regular (Humulin R) Review of Systems See above for pertinent positives & negatives. A total of 10 systems reviewed and were otherwise negative. Physical Exam General Appearance: + pertinent finding (Chronically ill appearing 76 year old female lying in bed in NAD with daughter at bedside ) Head: normocephalic, atraumatic Eyes: PERRL, EOMI, sclerae normal ENT: hearing grossly normal, pharynx normal Neck: supple, no JVD, trachea midline Respiratory/Chest: chest non-tender, lungs clear, normal breath sounds, no respiratory distress, no accessory muscle use Cardiovascular: regular rate, rhythm, no gallop, no JVD, normal peripheral pulses, + systolic murmur Abdomen/GI: normal bowel sounds, non tender, soft Extremities/Musculoskelatal: no calf tenderness, normal capillary refill, + pertinent finding (L below the knee amputation, right foot with several toes amputated, no erthyema, edema or purulent drainage, amputation sites of right foot still in healing phase ) Neurologic/Psych: + pertinent finding (Lethargic, but oriented x 3, no motor or sensory deficits noted on gross exam ) Skin: normal color, warm/dry, no rash Lymphatic: no adenopathy Diagnostics Laboratory Results Results Past 24 Hours Test 09/18/16 15:04 09/18/16 15:16 09/18/16 15:28 Range/Units Creatine Kinase MB Ratio 0-3.0 Microbiology Results 09/18/16 Blood Culture, Ordered Pending 09/18/16 Blood Culture, Ordered Pending Impression Assessment and Plan 76 year old is seen as a direct admission from [place] ED after presenting for AMS and missing dialysis HYPERKALEMIA - ESRD -Admit to tele -Had K+ of 6.3 at OSH, no EKG changes -repeat EKG -will need dialysis -Dr. Mclaughlin consulted for dialysis - he is aware of patient, input appreciated -Repeat Labs pending -Additional management pending further workup, please see Dr. Roberto's addendum HYPONATREMIA -129, unsure if chronic or acute -obtain outpatient records -fluid management per nephrology ELEVATED TROPONIN -0.11 in [place] -denies chest pain, SOB -likely secondary to ESRD -serial Juanita -monitor in tele LEUKOCYTOSIS -20K, febrile -? source - check procalcitonin, lactate -panculture -empirically cover with vancomycin, zosyn for now RIGHT TOE AMPUTATION -complaining of pain -continue [place] -check foot XR to r/o osteomyelitis -check doppler US -vascular surgery consult placed -wound care consult placed ALTERED MENTAL STATUS -? cause differential diagnosis to include infectious, metabolic encephalopathy , and other causes -panculture -check CXR, foot XR -Neuro check q4h -continue Vancomycin - pharmacy consulted for dosing -additional management following initial workup GERD -continue PPI HTN -stable -continue Diltiazem IDDM -Check A1c -SSI coverage -BSG AC HS -pharmacy consulted for glycemic control ANEMIA OF CHRONIC DISEASE -Hgb 9 s/p 1 unit PRBCs at outpatient hospital -follow H&H H/O CVA -per patient's daughter -continue Statin DEMENTIA -per patient's daughter, mild dementia -continue Trazodone DVT PROPHYLAXIS: will not anticoagulated d/t anemia, and SCDs contraindicated d/ t vascular disease CODE STATUS: FULL CODE per my discussion with the patient's daughter DISPO:In my clinical judgment this beneficiary meets acute admission criteria, established by [facility], that includes being hospitalized through two midnights. Discharge planning eval placed Patient seen in collaboration with Dr. Roberto Attending Note: Patient is a 76 yr old female with PMH of DM II, HTN, ESRD on HD and other comorbidities presents with history of AMS. Patient is a poor historian and most of history is obtained from her daughter and from old records. She was found to be Leukocytosis, hyperkalemic at 6.5, hyponatremia at 129, CT head from [facility] showed no acute pathology. She had complained of LLE foot pain and is planned for amputation by her precision filer hand. She is currently lethargic, daughter attributes it to pain medication given at [facility]. She also received 1 unit PRBC at [place] which as per podiatry recommendation prior to amputation. Physical exam: Vitals sings as noted above General: Lethargic, oriented X3, Chronically ill appearing HEENT: NC/AT , EOMI CVS: S1, S2, +systolic murmur Resp: CTA, normal breath sounds Abd: Soft, Non tender, BS present Neuro: lethargic, Oriented X3, no focal deficits EXT: RLE below knee amputation, Left LE foot in bandage, no edema Skin: Midline well healed post surgical scar on chest, warm Assessment and plan: Altered mental status: Likely metabolic encephalopathy CT head: no acute pathology Neuro checks Sepsis: Likely source LLE wound Start on IV Vanco, Zosyn CXR:wnl, X ray LLE: no acute bony abnormality Check lactic acid, procalcitonin Blood cultures Vascular surgery consulted for possible amputation Hyperkalemia: Planned for urgent dialysis Nephrology consulted Hyponatremia: Sodium levels:129 Monitor for now Agree with rest of assessment and plan of Nelida Hassan PA-C as above. VTE Prophylaxis VTE Risk Assessment Done? Y/N: Yes Risk Level: High Physical Exam (per Admitting): General Appearance: + pertinent finding (Chronically ill appearing 76 year old female lying in bed in NAD with daughter at bedside ) Head: normocephalic, atraumatic Eyes: PERRL, EOMI, sclerae normal ENT: hearing grossly normal, pharynx normal Neck: supple, no JVD, trachea midline Respiratory/Chest: chest non-tender, lungs clear, normal breath sounds, no respiratory distress, no accessory muscle use Cardiovascular: regular rate, rhythm, no gallop, no JVD, normal peripheral pulses, + systolic murmur Abdomen/GI: normal bowel sounds, non tender, soft Extremities/Musculoskelatal: no calf tenderness, normal capillary refill, + pertinent finding (L below the knee amputation, right foot with several toes amputated, no erthyema, edema or purulent drainage, amputation sites of right foot still in healing phase ) Neurologic/Psych: + pertinent finding (Lethargic, but oriented x 3, no motor or sensory deficits noted on gross exam ) Skin: normal color, warm/dry, no rash Lymphatic: no adenopathy Hospital Course Sepsis Staph Bacteremia secondary to left foot wound Sacral decubitus ulcer stage 2-X ray does not show any Osteomyelitis On iv vanco and zosyn Blood cx mrsa Appreciate ID input Zosyn discontinued I/V antibiotic for 4 weeks ,discontinue on 10/18 Antibiotic can be given at dialysis Will need follow up with her Vascular Surgeon at [place] - discussed with Daughter Check Level before Dialysis ,maintain at ~15 to 20 and give 500 mg IV after dialysis HYPERKALEMIA - ESRD K 6.3 on presentation Improved on Dialysis Appreciate nephrology input ANEMIA OF CHRONIC DISEASE Hgb 9 s/p 1 unit PRBCs at outpatient hospital On Procrit Hb 8.1 today Will give 1 unit PRBC during dialysis tomorrow No Blood transfusion as per Produce Associate Hb 8.3 today 09/26/16 ELEVATED TROPONIN Troponin 0.11 at [facility] Likely due to ESRD ECHO:: * The rhythm is atrial fibrillation. * Ejection Fraction = 50-55%. * The apical septum is thinned and akinetic. * The base inferoseptum is akinetic. * The mid inferoseptum is hypokinetic. * The apical inferior wall is severly hypokinetic to akinetic. * The right ventricle is mildly dilated. * The right ventricular systolic function is qualitatively normal. * The aortic valve is moderately calcified. * Mild valvular aortic stenosis. * There is mild to moderate mitral regurgitation. * There is severe tricuspid regurgitation. * The estimated systolic PAP is 83mmHg. * Dilated inferior vena cava with reduced collapsability with sniff indicates an elevated right atrial pressure of 15 mmHg No ACS Bradycardia-resolved on and off diltiazem on Hold Can restart Cardizem Remains stable Left foot wounds abx as above appreciate vascular surgery inputs. Wound Care consult Will need wound care follow up and ID follow up Outpatient Vascular Surgery follow up Wound care Instruction::Kaltostat to left lateral 4th toe. Betadine to all other areas of eschar on left foot. allow to dry. single 2x2 between toes. cover with kerlix. change daily, waffle boot. turn at least [id number] to buttocks and coccyx wounds- cleanse with saline. cover with optifoam. change q3days and prn GERD PPI HTN Controlled now IDDM On Sliding Scale Insulin coverage hba1c 5.6 H/O CVA per patient's daughter on Statin DEMENTIA per patient's daughter, mild dementia DVT PROPHYLAXIS: will not anticoagulated d/t anemia, and SCDs contraindicated d/ t vascular disease CODE STATUS: Level 3 per my discussion with the patient's daughter DISPOSITION Discharge to Rehab Total time spent on discharge = 35 minutes This includes examination of the patient, discharge planning, medication reconciliation, and communication with other providers. Discharge Instructions Admission Reason for Admission: Altered Mental Status Discharge Discharge Diagnosis / Problem: Staph Bacteremia,Left foot wound,ESRD on HD Discharge Goals Goal(s): Prevent Disease Progression Activity Recommendations Activity Level: Assistance Required Therapies: Physical Therapy, Occupational Therapy . Additional Information Patient informed of condition: Yes Advance Directives: No DNR: No (Full without Mechanical Ventilation) Level of Care: Skilled Communicable Disease: No Prognosis: Stable Oxygen at (LPM): 2 liters/min as needed [place] Catheter: No Instructions / Follow-Up Instructions / Follow-Up Please make an appointment with your PCP in 1 week,Continue Dialysis and Make an appointment with Vascular Surgeon Current Hospital Diet Patient's current hospital diet: Renal Diet, Diabetes Type 2 Diet Discharge Diet Recommended Diet: Diabetes Type 2 Diet Fluid Restriction: 1500 ml (6 cups) Pending Studies Studies pending at discharge: no Physician Orders On Transfer Dressing Changes: Wound care Instruction::Kaltostat to left lateral 4th toe. Betadine to all other areas of eschar on left foot. allow to dry. single 2x2 between toes. cover with kerlix. change daily, waffle boot. turn at least [id number] to buttocks and coccyx wounds- cleanse with saline. cover with optifoam. change q3days and prn Laboratory Results Hemoglobin A1c Test 09/19/16 02:46 Range/Units Estimated Average Glucose 114 mg/dl Hemoglobin A1c 5.6 4.5-5.6 % Medical Emergencies . Who to Call and When: Medical Emergencies: If at any time you feel your situation is an emergency, please call 911 immediately. . Non-Emergent Contact Non-Emergency issues call your: Primary Care Provider . Past History Medical & Surgical History: (1) Hyperkalemia (2) Altered mental status (3) HTN (hypertension) (4) CVA (cerebral vascular accident) (5) Diabetes mellitus, insulin dependent (IDDM), controlled (6) GERD (gastroesophageal reflux disease) (7) Anemia (8) ESRD (end stage renal disease) . "Provider Documentation" section prepared by Nelson Contreras. Core Measure Problem Core Measures: None <Electronically signed by Nelson Contreras M.D.>
== END 2016-09-26 16:38 | DRG 871 ==
LOC: CANRESERV → ENRESERVTM → ENRESERVDT → C.2E 14:27 → CANBEDREQ 09-21 15:13 → CMPBEDREQ 09-25 16:47 → C.MS4W 09-25 18:26
PROVIDERS: ADMIT Family Medicine; ATTEND Internal Medicine
DX: A41.02 Sepsis due to Methicillin resistant Staphylococcus aureus (principal); G93.41 Metabolic encephalopathy; I12.0 Hypertensive chronic kidney disease with stage 5 chronic kidney disease or end stage renal disease; E87.1 Hypo-osmolality and hyponatremia; L97.909 Non-pressure chronic ulcer of unspecified part of unspecified lower leg with unspecified severity; N18.6 End stage renal disease; E87.5 Hyperkalemia; R00.1 Bradycardia, unspecified; L89.152 Pressure ulcer of sacral region, stage 2; I73.9 Peripheral vascular disease, unspecified; E11.9 Type 2 diabetes mellitus without complications; F03.90 Unspecified dementia, unspecified severity, without behavioral disturbance, psychotic disturbance, mood disturbance, and anxiety; D63.1 Anemia in chronic kidney disease; K21.9 Gastro-esophageal reflux disease without esophagitis; Z79.4 Long term (current) use of insulin; Z79.899 Other long term (current) drug therapy; Z99.2 Dependence on renal dialysis; Z88.2 Allergy status to sulfonamides; Z88.8 Allergy status to other drugs, medicaments and biological substances; Z86.73 Personal history of transient ischemic attack (TIA), and cerebral infarction without residual deficits; Z89.421 Acquired absence of other right toe(s); Z89.512 Acquired absence of left leg below knee; Z83.3 Family history of diabetes mellitus

== ENCOUNTER 2016-10-09 19:22 | Inpatient (IN) | payer OTHER ==
[~2016-10-09] VITALS: Ht 152.4 cm; Wt 66.4 kg
[~2016-10-09 19:22] MED LIST: ATOR-22 PO; B-CO1CAP17 PO; BCTCR/30 EXT; DILT120C PO; DOXE1TAB2 PO; DSY100 PO; HYDR-4079 PO; INSPMPRGR SC; MAGN400T5 PO; OMEG-112 PO; OMEP20CA9 PO; Vancomycin Consult Active; lovaza PO
[2016-10-09] MEDS ORDERED: ALBUTEROL 0.5% NEB SOLN 2.5 MG/0.5 ML VIAL INH STA (19:47)
--- NOTE | 2016-10-09 19:48 | DIAGNOSTIC IMAGING REPORT ---
CHEST ONE VIEW PORTABLE CLINICAL HISTORY: CHEST PAIN dyspnea COMPARISON STUDY: 09/18/2016 FINDINGS: Moderate cardiomegaly. Prior median sternotomy. Prominent pulmonary vasculature. IMPRESSION: Congestive failure Electronically signed by: Amos Lugo M.D. 10/09/2016 7:47 PM Dictated Date/Time: 10/09/2016 7:46 PM
[2016-10-09] MEDS ORDERED: SENN8.6T36 PO (20:06)
--- NOTE | 2016-10-09 20:23 | EMERGENCY ROOM VISIT NOTE ---
History Report prepared by Reji: Crystal Ohara Under the Supervision of: Dr. Srikanth Brooks M.D. First contact with patient: 19:27 Chief Complaint: ABNORMAL LABS Stated Complaint: ABNORMAL LABS History of Present Illness The patient is a 76 year old female who presents to the Emergency Room to be evaluated for inability to receive dialysis. The patient went to dialysis today and her fistula could not be accessed. The patient states that two blood clots came out. She initially went to [place] ED for evaluation. Her hemoglobin was 7.5 and her potassium was 6. She was given Kayexalate. The patient could not receive dialysis at [place] so she was transferred to [facility]. Denies chest pain or other complaints. Source of History: patient Onset: today Position: other (global) Quality: other (inability to receive dialysis) Timing: constant Associated Symptoms: No chest pain Review of Systems See HPI for pertinent positives & negatives. A total of 10 systems reviewed and were otherwise negative. Past Medical & Surgical Medical Problems: (1) Altered mental status (2) Anemia (3) CVA (cerebral vascular accident) (4) Diabetes mellitus, insulin dependent (IDDM), controlled (5) ESRD (end stage renal disease) (6) GERD (gastroesophageal reflux disease) (7) HTN (hypertension) (8) Hyperkalemia Surgical Problems: (1) Hx of CABG Family History Noncontributory d/t age Social History Smoking Status: Never Smoker Marital Status: Occupation Status: retired Current/Historical Medications Scheduled Atorvastatin (Lipitor), 20 MG PO DAILY Diltiazem Hcl Coated Beads (Diltiazem Hcl Er), 120 MG PO DAILY Doxepin Hcl (Sleep) (Silenor), 3 MG PO HS Insulin Human Regular (Humulin R), UNITS SC SLIDING SCALE Magnesium Oxide (Mag-Ox), 400 MG PO DAILY Mupirocin 2% (Bactroban 2%), 1 APPLN EXT BID [id number] Ethyl Esters ([place]-3), 1 CAP PO BID Omeprazole (Prilosec), 20 MG PO DAILY Sennosides-Docusate Sodium (Docusate Sodium/Senna), 1 TAB PO DAILY Trazodone HCl (Trazodone HCl), 150 MG PO HS Vitamin B Cmplx/Vitc/Folic Ac (Nephrocaps), 1 CAP PO DAILY [lovaza ], 1 GM PO BID Scheduled PRN Hydrocodone/Acetaminophen 10MG/325MG ([place] 10MG/325MG), 1 TAB PO Q8 PRN for Pain Allergies Coded Allergies: Allopurinol (Unverified Allergy, Unknown, HIVES, 09/18/16) unknown reaction Cyclobenzaprine (Unverified Allergy, Unknown, DELIRIUM, 09/18/16) Sulfamethoxazole w/Trimethoprim (Unverified Allergy, Unknown, DELIRIUM, ) Physical Exam Vital Signs Date Time Temp Pulse Resp B/P Pulse Ox O2 Delivery O2 Flow Rate FiO2 10/09/16 21:30 85 20 107/68 94 Room Air 10/09/16 19:50 82 10/09/16 19:36 36.7 77 23 115/55 97 Room Air 10/09/16 19:35 97 Room Air 10/09/16 19:35 97 Room Air Physical Exam GENERAL: Patient is a healthy-appearing well-nourished 76 year old female. HEAD: Normocephalic atraumatic EYES: Ocular movements intact pupils equal and react to light OROPHARYNX mucous membranes are moist no exudates present no erythema or edema present NECK: Supple no nuchal rigidity CHEST: Good equal expansion LUNGS: Clear and equal to auscultation CARDIAC: Normal S1 and S2 ABDOMEN: Soft nontender no guarding BACK: No CVA tenderness EXTREMITIES: No pain upon palpation normal muscle strength in all groups no clubbing cyanosis or edema. Fistula with a palpable thrill in the left arm, No bruit auscultated NEURO: Patient is following commands is answering questions appropriately. Alert and oriented x3 Cranial Nerves 2-12 grossly intact Medical Decision & Procedures ER Provider Diagnostic Interpretation: Radiology results as stated below per my review and radiologist interpretation: CHEST ONE VIEW PORTABLE CLINICAL HISTORY: CHEST PAIN dyspnea COMPARISON STUDY: 09/18/2016 FINDINGS: Moderate cardiomegaly. Prior median sternotomy. Prominent pulmonary vasculature. IMPRESSION: Congestive failure Electronically signed by: Amos Lugo M.D. 10/09/2016 7:47 PM Dictated Date/Time: 10/09/2016 7:46 PM Laboratory Results Test 10/09/16 20:15 10/09/16 20:22 Immature Granulocyte % (Auto) 0.8 % White Blood Count 10.60 K/uL (4.8-10.8) Red Blood Count 2.33 M/uL (4.2-5.4) Hemoglobin 7.2 g/dL (12.0-16.0) Hematocrit 22.2 % (37-47) Mean Corpuscular Volume 95.3 fL (80-100) Mean Corpuscular Hemoglobin 30.9 pg (25-34) Mean Corpuscular Hemoglobin Concent 32.4 g/dl (32-36) Platelet Count 233 K/uL (130-400) Mean Platelet Volume 9.7 fL (7.4-10.4) Neutrophils (%) (Auto) 82.6 % Lymphocytes (%) (Auto) 7.5 % Monocytes (%) (Auto) 7.5 % Eosinophils (%) (Auto) 0.9 % Basophils (%) (Auto) 0.7 % Neutrophils # (Auto) 8.76 K/uL (1.4-6.5) Lymphocytes # (Auto) 0.79 K/uL (1.2-3.4) Monocytes # (Auto) 0.79 K/uL (0.11-0.59) Eosinophils # (Auto) 0.10 K/uL (0-0.5) Basophils # (Auto) 0.07 K/uL (0-0.2) Immature Granulocyte # (Auto) 0.09 K/uL (0.00-0.02) Polychromasia 1+ Hypochromasia PRESENT Prothrombin Time 12.0 SECONDS (9.0-12.0) Prothromb Time International Ratio 1.1 (0.9-1.1) Direct Bilirubin 0.1 mg/dl (0-0.2) Lipase 157 U/L (73-393) Bedside Hemoglobin 7.8 g/dl (12.0-16.0) Bedside Hematocrit 23 % (37-47) Bedside Sodium 127 mEq/L (135-144) Bedside Potassium 5.7 mEq/L (3.3-5.0) Bedside Chloride 90 mEq/L (101-112) Bedside Total CO2 22 mEq/l (24-31) Bedside Blood Urea Nitrogen 66 mg/dl (7-18) Bedside Creatinine 7.1 mg/dl (0.6-1.3) Bedside Glucose (other) 209 mg/dl (70-99) Bedside Ionized Calcium (Michell) 1.03 mmol/l (1.12-1.32) Labs reviewed by ED physician. Medications Administered Medications (Trade) Dose Ordered Sig/Herlinda Route Start Time Stop Time Status Last Admin Dose Admin Albuterol Sulfate (Ventolin 0.5% 2.5MG/0.5ML Neb) 2.5 mg NOW STAT INH 10/09/16 19:47 10/09/16 19:48 DC 10/09/16 20:26 2.5 MG ECG Indication: other (abnormal labs) Rate (beats per minute): 77 Rhythm: atrial fibrillation Findings: RBBB, T-wave inversion (Anterior) Comparison ECG Date: 09/20/16 Change: T wave inversions are new ED Course 2009: The patient was evaluated in room C5. A complete history and physical examination was performed. Ordered Albuterol Sulfate 2.5 mg INH. 2058: Upon reexamination the patient has had large bowel movements in her bed. I discussed results and treatment plan with the patient. She verbalizes agreement and understanding. 2115: I spoke with Dr. Jimenez from the [facility] Hospitalist Service. The patient will be evaluated for further management. 2126: I discussed the case with Dr. Dorsey from [facility] Nephrology. Medical Decision Differential diagnosis: Etiologies such as infections, reactive airway disease, pneumonia, pneumothorax , COPD, CHF, cardiac ischemia, pulmonary embolism, musculoskeletal, gastrointestinal, as well as others were entertained. This is a 76-year-old female who presents emergency department after being transferred from [facility] over concern for anemia as well as missed dialysis. The patient does have a fistula in place and there is a palpable thrill however no bruitt. The patient was noted to be anemic at [facility] therefore she was typed and screened for 1 unit of packed red blood cells here in the emergency department. I did discuss the case with nephrology however I do not feel that the patient needs emergent dialysis as her potassium is actually fallen and she does not appear to be volume overloaded. I did discuss the case with the hospitalist service who agreed to admit the patient. Patient was in agreement with the treatment plan. Consults Time Called: 2109 Consulting Physician: Dr. Jimenez - [facility] Returned Call: [phone] I discussed the case with her. The patient will be evaluated for further management. Additional Consults: Time Called: [phone] Consulted Physician: Dr. Dorsey from [facility] Nephrology Returned Call: [phone] Additional Comments: I discussed the case with Dr. Dorsey from [facility] Neph[facility]. Impression Primary Impression: Anemia Additional Impression: Hyperkalemia Critical Care I have personally spent greater than 90 minutes of critical care time in the direct management of this patient. This includes bedside care, interpretation of diagnostic studies, and testing, discussion with consultants, patient, and family members, and other required patient management activities. This 90 minutes is in excess of all separately billable procedures. Scribe Attestation The scribe's documentation has been prepared under my direction and personally reviewed by me in its entirety. I confirm that the note above accurately reflects all work, treatment, procedures, and medical decision making performed by me. Departure Information Dispostion Being Evaluated By Hospitalist Referrals No Doctor, Assigned (PCP) Patient Instructions My [facility] Problem Qualifiers Primary Impression: Anemia Anemia type: unspecified type Qualified Codes: D64.9 - Anemia, unspecified
[2016-10-09 20:39] LABS: BASO % 0.7 %; BASO ABS # 0.07 K/uL (0-0.2); EOS % 0.9 %; HEMATOCRIT 22.2 % (37-47); IG% 0.8 %; LYMPH % 7.5 %; LYMPH ABS # 0.79 K/uL (1.2-3.4); MEAN CELL VOLUME 95.3 fL (80-100); MEAN CORPUSCULAR HEMOGLOBIN 30.9 pg (25-34); MEAN CORPUSCULAR HGB CONC 32.4 g/dl (32-36); MEAN PLATELET VOLUME 9.7 fL (7.4-10.4); MONO % 7.5 %; NEUT % 82.6 %; PLATELET COUNT 233 K/uL (130-400); RED BLOOD COUNT 2.33 M/uL (4.2-5.4)
[2016-10-09 20:40] LABS: ISTAT CREATININE 7.1 mg/dl (0.6-1.3); ISTAT HEMOGLOBIN 7.8 g/dl (12.0-16.0); ISTAT IONIZED CALCIUM 1.03 mmol/l (1.12-1.32)
[2016-10-09 20:45] LABS: INR 1.1 (0.9-1.1)
[2016-10-09 20:56] LABS: COMPLETE YES; HYPOCHROMIA PRESENT; POLYCHROMASIA 1+
[2016-10-09 21:12] LABS: BUN/CREATININE RATIO 8.4 (10-20); CALCIUM 8.4 mg/dl (8.5-10.1); CKMB/CK RATIO 7.2 (0-3.0); CREATININE 7.6 mg/dl (0.60-1.20); POTASSIUM 5.6 mmol/L (3.5-5.1)
[2016-10-09] MEDS ORDERED: ONDANSETRON INJ 2 MG/ML 2 ML VIAL IV PRN (21:30)
[2016-10-09] MEDS ORDERED: GLUCAGON FOR INJ 1 MG VIAL SQ PRN (21:30)
[2016-10-09] MEDS ORDERED: POLYETHYLENE (MIRALAX) 17 GM PACK PO PRN (21:30)
[2016-10-09] MEDS ORDERED: GLUCOSE 10 TABS/TUBE PO PRN (21:30)
[2016-10-09] MEDS ORDERED: DEXTROSE 50% 50 ML SYR IV PRN (21:30)
[2016-10-09] MEDS ORDERED: GLUCOSE 40% GEL 15 GM TUBE PO PRN (21:30)
[2016-10-09] MEDS ORDERED: NITROGLYCERIN 0.4 MG SL PER TAB CHARGE SL PRN (21:30)
[2016-10-09] MEDS ORDERED: ACETAMINOPHEN 325 MG TAB PO PRN (21:30)
[2016-10-09] MEDS ORDERED: HYDROCODONE/ACETAMI 10/325 TAB PO PRN (21:45)
[2016-10-09] MEDS ORDERED: PHARMACY GLYCEMIC MGMT CONSULT PRN (22:02)
--- NOTE | 2016-10-09 22:11 | History and Physical ---
History & Physical Date & Time of Service: Oct 09, 2016 at 22:11 Chief Complaint: Abnormal Labs Primary Care Physician: Олег King M.D. History of Present Illness Source: patient This is a 76 yo Female with past medical hx of ESRD On dialysis, Type 2 DM , severe peripheral vascular disease , HTN , hyperlipidemia , anemia of chronic disease was recently admitted to [facility] from 09/18/16 to 09/26/16 for left foot toe wound infection , MRSA bacteremia on IV vancomycin after dialysis last date of tx on 10/18/16 pt is sent from [facility] to [facility] for weakness, fatigue , abnormal labs - Hyperkalemia , Anemia , unable to have dialysis today as per Pt and [place] ER note -pt was very lethargic " wobbly " at the Dialysis center as she stood up to be weighed prior Dialysis treatment no report of syncope pt mentions they could not access her Left upper arm fistula due to clot sent to ED at [facility] Found to be hyperkalemia ; K 6.5 , Anemic hb 7.2 EKG shows new T wave inversion in ant and lateral lead -new changes compared to prior EKG in 09/18/16 pt was given PO Kayexalate , sent to [facility] ( [place] does not have dialysis service ) in the ED repeat Lab shows mild improvement of K 5.6 , pt had large BM after Kayexalate persisted T wave inversion in EKG no symptom of chest heaviness or discomfort has baseline SOB /VALDES in the ED 1 unit of PRBC transfusion ordered pt will be admitted to [facility] Hospitalist service Past Medical/Surgical History Medical Problems: (1) Anemia Status: Chronic (2) CVA (cerebral vascular accident) Status: Chronic (3) Diabetes mellitus, insulin dependent (IDDM), controlled Status: Chronic (4) ESRD (end stage renal disease) Status: Chronic (5) GERD (gastroesophageal reflux disease) Status: Chronic (6) HTN (hypertension) Status: Chronic Surgical Problems: (1) Hx of CABG Status: Chronic Family History Noncontributory d/t age Social History Smoking Status: Never Smoker Marital Status: Housing status: lives with family Occupational Status: retired Multi-Drug Resistant Organisms History of MDRO: Yes Type of MDRO: MRSA Allergies Coded Allergies: Allopurinol (Unverified Allergy, Unknown, HIVES, 09/18/16) unknown reaction Cyclobenzaprine (Unverified Allergy, Unknown, DELIRIUM, 09/18/16) Sulfamethoxazole w/Trimethoprim (Unverified Allergy, Unknown, DELIRIUM, ) Home Medications Scheduled Atorvastatin (Lipitor), 20 MG PO DAILY Diltiazem Hcl Coated Beads (Diltiazem Hcl Er), 120 MG PO DAILY Doxepin Hcl (Sleep) (Silenor), 3 MG PO HS Insulin Human Regular (Humulin R), UNITS SC SLIDING SCALE Magnesium Oxide (Mag-Ox), 400 MG PO DAILY Mupirocin 2% (Bactroban 2%), 1 APPLN EXT BID [id number] Ethyl Esters ([place]-3), 1 CAP PO BID Omeprazole (Prilosec), 20 MG PO DAILY Sennosides-Docusate Sodium (Docusate Sodium/Senna), 1 TAB PO DAILY Trazodone HCl (Trazodone HCl), 150 MG PO HS Vitamin B Cmplx/Vitc/Folic Ac (Nephrocaps), 1 CAP PO DAILY [lovaza ], 1 GM PO BID Scheduled PRN Hydrocodone/Acetaminophen 10MG/325MG ([place] 10MG/325MG), 1 TAB PO Q8 PRN for Pain Review of Systems Constitutional: No chills, No fatigue, No fever, No problem reported, No sweats , No weakness, No weight loss Respiratory: + dyspnea on exertion, + shortness of breath Cardiovascular: No PND, No chest pain, No claudication, No edema, No orthopnea , No palpitations, No problem reported Abdomen: + problem reported (chronic dark stool ), No GI bleeding, No constipation, No diarrhea, No nausea, No pain, No vomiting Musculoskeletal: + problem reported (left foot/toe chronic infection ) Neurologic: + problem reported (baseline mild dementia ) Physical Exam Vital Signs Date Time Temp Pulse Resp B/P Pulse Ox O2 Delivery O2 Flow Rate FiO2 10/09/16 21:30 85 20 107/68 94 Room Air 10/09/16 19:50 82 10/09/16 19:36 36.7 77 23 115/55 97 Room Air 10/09/16 19:35 97 Room Air 10/09/16 19:35 97 Room Air General Appearance: + pertinent finding (chronically ill appearing ) Head: normocephalic, atraumatic Eyes: normal inspection, sclerae normal Neck: thyroid normal, no JVD, trachea midline Respiratory/Chest: chest non-tender, lungs clear, normal breath sounds, no respiratory distress Cardiovascular: regular rate, rhythm, no murmur Abdomen/GI: normal bowel sounds, non tender, soft Extremities/Musculoskelatal: + pertinent finding (s/p rt BKA, non healing wound on left 2nd and 3rd toe; 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) Neurologic/Psych: no motor/sensory deficits, alert, normal mood/affect Diagnostics Laboratory Results Results Past 24 Hours Test 10/09/16 20:15 10/09/16 20:22 Range/Units White Blood Count 10.60 4.8-10.8 K/uL Red Blood Count 2.33 4.2-5.4 M/uL Hemoglobin 7.2 12.0-16.0 g/dL Hematocrit 22.2 37-47 % Mean Corpuscular Volume 95.3 80-100 fL Mean Corpuscular Hemoglobin 30.9 25-34 pg Mean Corpuscular Hemoglobin Concent 32.4 32-36 g/dl Platelet Count 233 130-400 K/uL Mean Platelet Volume 9.7 7.4-10.4 fL Neutrophils (%) (Auto) 82.6 % Lymphocytes (%) (Auto) 7.5 % Monocytes (%) (Auto) 7.5 % Eosinophils (%) (Auto) 0.9 % Basophils (%) (Auto) 0.7 % Neutrophils # (Auto) 8.76 1.4-6.5 K/uL Lymphocytes # (Auto) 0.79 1.2-3.4 K/uL Monocytes # (Auto) 0.79 0.11-0.59 K/uL Eosinophils # (Auto) 0.10 0-0.5 K/uL Basophils # (Auto) 0.07 0-0.2 K/uL RDW Standard Deviation 59.5 36.4-46.3 fL RDW Coefficient of Variation 17.2 11.5-14.5 % Immature Granulocyte % (Auto) 0.8 % Immature Granulocyte # (Auto) 0.09 0.00-0.02 K/uL Polychromasia 1+ Hypochromasia PRESENT Prothrombin Time 12.0 9.0-12.0 SECONDS Prothromb Time International Ratio 1.1 0.9-1.1 Sodium Level 128 136-145 mmol/L Potassium Level 5.6 3.5-5.1 mmol/L Chloride Level 89 98-107 mmol/L Carbon Dioxide Level 22 21-32 mmol/L Anion Gap 17.0 21.0 16-25 mmol/L Blood Urea Nitrogen 63 7-18 mg/dl Creatinine 7.60 0.60-1.20 mg/dl Est Creatinine Clear Calc Drug Dose 5.3 ml/min Estimated GFR () 5.4 Estimated GFR (Non- 4.6 BUN/Creatinine Ratio 8.4 10-20 Random Glucose 199 70-99 mg/dl Calcium Level 8.4 8.5-10.1 mg/dl Total Bilirubin 0.4 0.2-1 mg/dl Direct Bilirubin 0.1 0-0.2 mg/dl Aspartate Amino Transf (AST/SGOT) 11 15-37 U/L Alanine Aminotransferase (ALT/SGPT) 14 12-78 U/L Alkaline Phosphatase 112 45-117 U/L Total Creatine Kinase 29 26-192 U/L Creatine Kinase MB 2.1 0.5-3.6 ng/ml Creatine Kinase MB Ratio 7.2 0-3.0 Troponin I 0.972 0-0.045 ng/ml Total Protein 7.5 6.4-8.2 gm/dl Albumin 2.5 3.4-5.0 gm/dl Lipase 157 73-393 U/L Bedside Hemoglobin 7.8 12.0-16.0 g/dl Bedside Hematocrit 23 37-47 % Bedside Sodium 127 135-144 mEq/L Bedside Potassium 5.7 3.3-5.0 mEq/L Bedside Chloride 90 101-112 mEq/L Bedside Total CO2 22 24-31 mEq/l Bedside Blood Urea Nitrogen 66 7-18 mg/dl Bedside Creatinine 7.1 0.6-1.3 mg/dl Bedside Glucose (other) 209 70-99 mg/dl Bedside Ionized Calcium (Michell) 1.03 1.12-1.32 mmol/l Diagnostic Radiology CT HEAD WITH OUT CONTRAST ( [facility] ) 10/09/16 , 13: 10 PM IMPRESSION : no acute intracranial process CXR normal EKG deep T wave inversion on Ant and lateral leads Qtc prolong > 500 Impression Assessment and Plan ESRD ON DIALYSIS /MISSED DIALYSIS TODAY -unable to have dialysis due to lethargy /dizzy spell /concern for malfunction of fistula -admit to tele -check orthostatic vitals -no evidence of vol overload -D/w Nephrology Dr Kellogg -will have dialysis tomorrow AM -Vascular Surgery Dr Cramer consulted to evaluate HD access HYPERKALEMIA : due to above -given Kayexalate in [place] ED -1 gm Ca gluconate ordered for EKG changed ( new T wave inversion ) -repeat BMP at 4 hrs -Low k diet monitor in Tele -Nephrology eval requested -possible HD tomorrow ANEMIA OF CHRONIC DISEASE : due to ESRD -no evidence of active GI bleed -ordered for 1 unit of PRBC transfusion ( EKG changes ) -correction of possible demand ischemia -pt gets Procrit with HD -repeat CBC in AM NEW EKG CHANGES deep T wave inversion in ant Lat leads/new changed compared to EKG 3 weeks back 09/18/16 possible due to electrolyte abnormality -Hyperkalemia rule out demand ischemia -correct anemia correction of Hyperkalemia as outlined above initial cardiac marker elevated > 1 follow serial markers -pt remains asymptomatic repeat EKG in AM recent ECHO 09/2016 : EF 50-55% Rhythm Afib apical septum thinned and akinetic /mid infero septum hypokinetic /base inferoseptum akinetic , apical inf wall severely hypokinetic to akinetic cardiology consult requested PROLONG QTC Qtc > 500 follow Mg. K. Phos level hold Zofran /Trazodone avoid meds causing Qtc prolongation NON HEALING WOUND ON LEFT TOE /HX OF MRSA BACTEREMIA : -due to severe PVD wound care consult requested -On IV Abx Vancomycin 500mg IV after dialysis last day of treatment 10/18/16 ordered to continue IV Vancomycin Pharmacy consulted for dosing check trough level before dialysis goal trough 15-20 no evidence of sepsis -no fever /leukocytosis STAGE 2 SACRAL DECUB ULCER present on admission wound care consult requested change position frequently TYPE 2 DM insulin SSI Hb A1C 09/18 5.6 HTN BP stable on Cardizem cont on holding parameters Orthostatic vital requested CODE STATUS : d/w Pt wants all resuscitative effort to attempt if there is a chance for reasonable recovery Level 1 full code DVT PROPHYLAXIS : moderate to high risk due to limited mobility S/P rt BKA SCD and teds -pharmacological anticoagulation avoided-due to anemia requiring PRBC transfusion DISPOSITION : currently at [facility] PT/OT eval requested Social service consulted for DC planning VTE Prophylaxis VTE Risk Assessment Done? Y/N: Yes Risk Level: Moderate
[2016-10-09 22:20] VITALS: BP 111/69; PULSE 82; TEMP 36.6; O2SAT 94
[2016-10-09 22:27] VITALS: BP 109/66; PULSE 78; TEMP 36.8; O2SAT 98
[2016-10-09 22:36] VITALS: BP 103/69; PULSE 82; TEMP 36.7; O2SAT 97
[2016-10-09 22:48] VITALS: BP 109/63; PULSE 88; TEMP 36.8; O2SAT 97
[2016-10-09] MEDS ORDERED: INSULIN HUMAN REGULAR SC SCH (23:00)
[2016-10-09 23:52] VITALS: BP 96/72; PULSE 81; TEMP 36.5; O2SAT 94; BMI 28.2
[2016-10-09 23:55] VITALS: BP 96/61; PULSE 83; TEMP 36.6; O2SAT 95
[2016-10-10] VITALS (13 sets, daily range): BP systolic 90–106; BP diastolic 44–72; PULSE 74–83; TEMP 36.3–36.8; O2SAT 92–96; Ht 152.4 cm; Wt 66.4 kg
[2016-10-10] MEDS ORDERED: CALCIUM GLUCONATE 10% 1,000 MG in SODIUM CHLORIDE 0.9% 50ML 50 ML IV SCH (00:30)
[2016-10-10] MEDS ORDERED: VANCOMYCIN CONSULT ACTIVE PRN (00:30)
[2016-10-10] MEDS: INSULIN ASPART 100 UNITS/ML 3 ML PEN SC SCH ×5 (00:34→20:39)
[2016-10-10 01:28] LABS: BUN/CREATININE RATIO 9.1 (10-20); CALCIUM 8.4 mg/dl (8.5-10.1); CREATININE 7.6 mg/dl (0.60-1.20); POTASSIUM 5.3 mmol/L (3.5-5.1)
[2016-10-10 04:53] LABS: HEMATOCRIT 24.4 % (37-47); MEAN CELL VOLUME 92.8 fL (80-100); MEAN CORPUSCULAR HGB CONC 32.4 g/dl (32-36); MEAN PLATELET VOLUME 9.7 fL (7.4-10.4); PLATELET COUNT 217 K/uL (130-400); RED BLOOD COUNT 2.63 M/uL (4.2-5.4)
[2016-10-10 05:23] LABS: ALB/GLOB RATIO 0.5 (0.9-2); BUN/CREATININE RATIO 8.8 (10-20); CALCIUM 8.3 mg/dl (8.5-10.1); CHOLESTEROL/HDL RATIO 2.8; CKMB/CK RATIO 7.3 (0-3.0); CREATININE 7.7 mg/dl (0.60-1.20); MAGNESIUM 1.9 mg/dl (1.8-2.4); PHOSPHORUS 8.9 mg/dl (2.5-4.9); POTASSIUM 5.1 mmol/L (3.5-5.1)
[2016-10-10 06:35] LABS: ESTIMATED AVERAGE GLUCOSE 126 mg/dl; HA1C FLAG Normal (Normal)
[2016-10-10] MEDS ORDERED: EPOETIN ALFA 10,000 UNITS/ML VIAL IV. ONE ×2 (07:15→08:00)
--- NOTE | 2016-10-10 07:18 | DIAGNOSTIC IMAGING REPORT ---
LEFT LOWER EXTREMITY VENOUS DOPPLER CLINICAL HISTORY: Left leg swelling. COMPARISON STUDY: Left lower extremity venous Doppler September 18, 2016. TECHNIQUE: Sonography of the deep venous system of the left lower extremity was performed. Compression and augmentation were evaluated. FINDINGS: Linear material within the left superficial femoral vein is unchanged exam of January or 2016. No additional sites of deep venous thrombus identified on this examination. Left calf edema was incidentally noted. IMPRESSION: 1. No evidence of acute deep venous thrombus within the left lower extremity. 2. 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 Electronically signed by: Rylan Crespo M.D. 10/10/2016 7:16 AM Dictated Date/Time: 10/10/2016 7:15 AM
[2016-10-10] MEDS ORDERED: EPOETIN ALFA INJ 12,000 UNITS in SYRINGE 0 ML IV. SCH (08:00)
[2016-10-10] MEDS ORDERED: HEPARIN SOD (PORCINE) 1000 UNIT/ML 10 ML VIAL IV SCH ×2 (08:00)
--- NOTE | 2016-10-10 08:09 | NEPHROLOGY CONSULTATION ---
DATE OF CONSULTATION: 10/10/2016 ATTENDING OF RECORD: Dr. Jimenez. REASON FOR CONSULTATION: ESRD. HISTORY OF PRESENT ILLNESS: This 76-year-old female who dialyzes at the [place] dialysis unit followed by Dr. Harrington. Last dialysis treatment was Saturday, which went well. The patient presented to dialysis on Saturday and they attempted cannulation and only were able to pull out clots. There was no bruit or thrill. The patient also was confused and wobbly with low blood pressures. The patient has been getting vancomycin after dialysis and hemoglobin levels are trending down and they are arranging for an outpatient transfusion. The patient was recently in the hospital from September 18 to September 26 for left foot toe wound infection. The patient went to [place] [facility] and was sent to [facility] for further evaluation. Potassium level was elevated at 5.6 and improved down to 5.1 this morning and currently n.p.o. The patient is awake, answers questions and gets short term memory details somewhat confused. The patient was given Kayexalate overnight to help with the potassium levels. PAST MEDICAL HISTORY: Diabetes; end-stage renal disease on dialysis for about 12 years at the [facility] in [place] on Tuesdays, , Saturdays followed by Dr. Harrington; GERD; hypertension; stroke in the past; anemia of end-stage renal failure; peripheral vascular disease. SOCIAL HISTORY: No smoking, no alcohol, no drugs. Lives at home with her daughter. REVIEW OF SYSTEMS: The patient's appetite is okay. Pain is well controlled. No shortness of breath, no chest pain, no nausea or vomiting, no headaches, was confused at the [place] dialysis unit as well as the [place] ER and appears more alert this morning. No rash or itching. All other review of systems otherwise negative. PAST SURGICAL HISTORY: Left BKA, 2 toes removed on the right foot and fistula/graft placement. FAMILY HISTORY: Significant for diabetes. CURRENT MEDICATIONS: Lipitor 20 mg daily, DILT 120 mg daily, magnesium 400 mg daily, senna 1 tab daily, fish oil 1 gram b.i.d., Nephrocaps daily, Protonix 40 mg daily, and vancomycin. PHYSICAL EXAMINATION: VITAL SIGNS: Temperature 36.8, pulse 77, respiratory rate 16, blood pressure 102/62, satting 94% on room air. GENERAL: Awake, alert, and oriented x3 but does get easily confused. EYES: No scleral icterus. ENT: Moist mucous membranes. NECK: Supple. PULMONARY: Clear to auscultation. CARDIAC: Regular rate and rhythm. ABDOMEN: Bowel sounds positive, soft, nontender. EXTREMITIES: We have a right BKA. Left foot wound healing and is wrapped. NEUROLOGICALLY: Nonfocal. DERMATOLOGIC: No rash noted. LABORATORY DATA: White count 9.5, H\T\H 7.9 and 24.4, platelet count is 217, glucose 116, sodium is 131, potassium is 5.1, chloride is 90, bicarbonate is 23, BUN 68, creatinine 7.7, glucose 128. Hemoglobin A1c 6, calcium is 8.3, ionized calcium is 1.05, phosphorus 8.9, troponin 0.971. INR is 1.1. IMPRESSION AND PLAN: 1. End-stage renal disease: The patient needs dialysis access and during my clinical exam appears clotted, unable to appreciate a bruit and thrill. I discussed the case with Dr. Tovar. He is going to evaluate the patient and possibly consider declot today if access is indeed clotted. 2. Hyperkalemia. Potassium levels have trended down with the Kayexalate. We will continue a renal diet; however, currently n.p.o. for possible procedure later today. 3. Anemia of end-stage renal failure, on Procrit with dialysis, did get 1 unit transfused overnight. 4. Hypocalcemia. Calcium levels are low. Did get 1 gram of calcium gluconate, we will give 1 more gram of calcium gluconate as well. 5. Wound infection. The patient is on chronic vancomycin and I would recommend checking blood cultures on dialysis and continue on the vancomycin and question if the infection was worsening leading towards lower blood pressures and worsening confusion and clotting of access. I appreciate consultation. LAURA
[2016-10-10] MEDS ORDERED: CALCIUM GLUCONATE 10% 1,000 MG in SODIUM CHLORIDE 0.9% 50ML 50 ML IV ONE (08:15)
[2016-10-10] MEDS ORDERED: MAGNESIUM OXIDE 400 MG TAB PO SCH (09:00)
[2016-10-10] MEDS ORDERED: PANTOprazole SOD 40 MG TAB PO SCH (09:00)
[2016-10-10] MEDS ORDERED: ATORVASTATIN 20 MG TAB PO SCH (09:00)
[2016-10-10] MEDS ORDERED: NEPHROCAPS PO SCH (09:00)
[2016-10-10] MEDS: MUPIROCIN 2% OINT 22 GM TUBE EXT SCH ×2 (09:00→20:32)
[2016-10-10] MEDS ORDERED: DILTIAZEM HCL 120 MG CAPCR PO SCH (09:00)
[2016-10-10] MEDS ORDERED: DOCUSATE SODIUM/SENNA 50/8.6MG TAB PO SCH (09:00)
[2016-10-10] MEDS ORDERED: LOVAZA 1 GM PO SCH (09:00)
[2016-10-10] MEDS: OMEGA-3 (PURIFIED FISH OIL) 1 GM CAP PO SCH ×2 (09:01→20:31)
--- NOTE | 2016-10-10 09:52 | Cardiology Consultation ---
Cardiology Consultation Date of Consultation: Oct 10, 2016 Requesting Physician: Tony Attending Safety Spec: Richie (Amos Parry PA-C) History of Present Illness Ms. Grant is a pleasant 76 year old female who was admitted to [facility] on 10/09/2016 secondary to an inability to undergo dialysis ( unable to access LUE fistula), symptoms of generalized weakness and acute on chronic fatigue. Labs with hyperkalemia (6.5 mmol/L) and anemia (Hgb 7.2 g/dL). EKG on presentation revealed the known chronic atrial fibrillation, left axis deviation, and a right bundle branch block with inferior and lateral T wave changes. When compared to a prior EKG from the right bundle branch block has replaced the nonspecific intra-ventricular conduction block. The patient denies chest pain or discomfort. No sublingual nitroglycerin use. Stable dyspnea. No palpitations. No orthopnea or PND. No syncope. (Amos Parry PA-C) History Past Medical/Surgical History: ASCVD Status post CABG x 2 on 02/27/2000 at [facility] [place] [facility] [place]rafts unknown) ESRD on dialysis via a left upper extremity AV fistula for ~12 years, hemodialysis on , , and Saturdays Type 2 diabetes mellitus. Severe peripheral vascular disease include carotid occlusive disease and PAD status post right below knee amputation, activity with a left lower extremity wound. History of CVA Hypertension Dyslipidemia Anemia of chronic disease GERD Colonoscopy with polypectomy Tonsillectomy/Adenoids Umbilical Hernia Repair Family History: Positive for CAD in her mother, father, and multiple siblings. Social History: Reformed smoker. No smokeless tobacco abuse. No alcohol use/ abuse. No illegal drug use. . Six children. Retired. (Amos Parry PA-C) Review Of Systems Complete review of systems is as stated above, negative, or noncontributory. (Amos Parry PA-C) Allergies Coded Allergies: Allopurinol (Unverified Allergy, Unknown, HIVES, 09/18/16) unknown reaction Cyclobenzaprine (Unverified Allergy, Unknown, DELIRIUM, 09/18/16) Sulfamethoxazole w/Trimethoprim (Unverified Allergy, Unknown, DELIRIUM, ) Medications Reported Home Medications Medications Dose Route/Sig Max Daily Dose Days Date Category Dose Instructions Docusate Sodium/Senna (Sennosides-Docusate Sodium) 1 Tab Tab 1 Tab PO DAILY 10/09/16 Reported Bactroban 2% (Mupirocin) 30 Gm Cr 1 Appln EXT BID 09/18/16 Reported [place] 10MG/325MG (Acetaminophen/Hydrocodone Bitart) Tab 1 Tab PO Q8 PRN 30 09/18/16 Reported PRN PAIN Humulin R (Insulin Human Regular) 1 Ea Inj Units SC SLIDING SCALE 09/18/16 Reported Nephrocaps (Vitamin B Complex/Vit C/Folic Acid) Cap 1 Cap PO DAILY 30 09/18/16 Reported Silenor (Doxepin Hcl (Sleep)) 3 Mg Tab 3 Mg PO HS 09/18/16 Reported Trazodone HCl 100 Mg Tab 150 Mg PO HS 09/18/16 Reported Prilosec (Omeprazole) 20 Mg Cap 20 Mg PO DAILY 09/18/16 Reported [place]-3 (Gnbds-7-Jlzu Ethyl Esters) 1 Cap Cap 1 Cap PO BID 30 09/18/16 Reported Mag-Ox (Magnesium Oxide) 400 Mg Tab 400 Mg PO DAILY 09/18/16 Reported Diltiazem Hcl Er (Diltiazem Hcl Coated Beads) 120 Mg Cap 120 Mg PO DAILY 90 09/18/16 Reported Lipitor (Atorvastatin Calcium) 20 Mg Tab 20 Mg PO DAILY 30 09/18/16 Reported [lovaza ] 1 Gm PO BID 09/18/16 Reported (Amos Parry PA-C) Physical Exam Vital Signs (Last 8hrs): Last 8 Hrs Date Time Temp Pulse Resp B/P Pulse Ox O2 Delivery O2 Flow Rate FiO2 10/10/16 09:00 79 106/56 10/10/16 07:58 36.3 74 16 102/65 95 Room Air 10/10/16 04:00 94 Room Air 10/10/16 04:00 36.8 77 16 102/62 94 Room Air General Appearance: A&Ox3. NAD. Acutely ill. Chronically ill. Head: Normocephalic Atraumatic. Eyes: PER, EOMI, conjunctiva and sclera pale Neck: Supple. Bilateral carotid bruits. No JVD. Respiratory: Breath sounds clear to auscultation anteriorly and laterally. Cardiovascular: Irregularly irregular in the 70's. Grade II/ systolic murmur heard at the left upper sternal border. No diastolic murmur. No rub. PMI is not displaced. Abdomen: +BS. + Bruit. Extremities: Left upper extremity AV fistula without thrill. Right below knee amputation. Left foot dressing. Minimal erythema above the dressing. Minimal left lower extremity edema. No cyanosis. Neuro: No focal deficits. Psychiatric: Flat affect. (Amos Parry, AXEL) Data Last 24 Hours Test 10/09/16 20:15 10/09/16 20:22 10/10/16 00:27 10/10/16 00:35 White Blood Count 10.60 K/uL Red Blood Count 2.33 M/uL Hemoglobin 7.2 g/dL Hematocrit 22.2 % Mean Corpuscular Volume 95.3 fL Mean Corpuscular Hemoglobin 30.9 pg Mean Corpuscular Hemoglobin Concent 32.4 g/dl Platelet Count 233 K/uL Mean Platelet Volume 9.7 fL Neutrophils (%) (Auto) 82.6 % Lymphocytes (%) (Auto) 7.5 % Monocytes (%) (Auto) 7.5 % Eosinophils (%) (Auto) 0.9 % Basophils (%) (Auto) 0.7 % Neutrophils # (Auto) 8.76 K/uL Lymphocytes # (Auto) 0.79 K/uL Monocytes # (Auto) 0.79 K/uL Eosinophils # (Auto) 0.10 K/uL Basophils # (Auto) 0.07 K/uL RDW Standard Deviation 59.5 fL RDW Coefficient of Variation 17.2 % Immature Granulocyte % (Auto) 0.8 % Immature Granulocyte # (Auto) 0.09 K/uL Polychromasia 1+ Hypochromasia PRESENT Prothrombin Time 12.0 SECONDS Prothromb Time International Ratio 1.1 Sodium Level 128 mmol/L 131 mmol/L Potassium Level 5.6 mmol/L 5.3 mmol/L Chloride Level 89 mmol/L 90 mmol/L Carbon Dioxide Level 22 mmol/L 22 mmol/L Anion Gap 17.0 mmol/L 21.0 mmol/L 19.0 mmol/L Blood Urea Nitrogen 63 mg/dl 68 mg/dl Creatinine 7.60 mg/dl 7.60 mg/dl Est Creatinine Clear Calc Drug Dose 5.3 ml/min 5.1 ml/min Estimated GFR () 5.4 5.4 Estimated GFR (Non- 4.6 4.6 BUN/Creatinine Ratio 8.4 9.1 Random Glucose 199 mg/dl 180 mg/dl Calcium Level 8.4 mg/dl 8.4 mg/dl Magnesium Level 1.9 mg/dl Total Bilirubin 0.4 mg/dl Direct Bilirubin 0.1 mg/dl Aspartate Amino Transf (AST/SGOT) 11 U/L Alanine Aminotransferase (ALT/SGPT) 14 U/L Alkaline Phosphatase 112 U/L Total Creatine Kinase 29 U/L Creatine Kinase MB 2.1 ng/ml Creatine Kinase MB Ratio 7.2 Troponin I 0.972 ng/ml Total Protein 7.5 gm/dl Albumin 2.5 gm/dl Lipase 157 U/L Bedside Hemoglobin 7.8 g/dl Bedside Hematocrit 23 % Bedside Sodium 127 mEq/L Bedside Potassium 5.7 mEq/L Bedside Chloride 90 mEq/L Bedside Total CO2 22 mEq/l Bedside Blood Urea Nitrogen 66 mg/dl Bedside Creatinine 7.1 mg/dl Bedside Glucose (other) 209 mg/dl Bedside Ionized Calcium ([place]hell) 1.03 mmol/l Bedside Glucose 200 mg/dl Test 10/10/16 04:34 10/10/16 06:58 10/10/16 08:36 White Blood Count 9.50 K/uL Red Blood Count 2.63 M/uL Hemoglobin 7.9 g/dL Hematocrit 24.4 % Mean Corpuscular Volume 92.8 fL Mean Corpuscular Hemoglobin 30.0 pg Mean Corpuscular Hemoglobin Concent 32.4 g/dl RDW Standard Deviation 62.3 fL RDW Coefficient of Variation 18.4 % Platelet Count 217 K/uL Mean Platelet Volume 9.7 fL Nucleated RBC Absolute Count (auto) 0.02 K/uL Nucleated Red Blood Cells % 0.2 % Sodium Level 131 mmol/L Potassium Level 5.1 mmol/L Chloride Level 90 mmol/L Carbon Dioxide Level 23 mmol/L Anion Gap 18.0 mmol/L Blood Urea Nitrogen 68 mg/dl Creatinine 7.70 mg/dl Est Creatinine Clear Calc Drug Dose 5.1 ml/min Estimated GFR () 5.3 Estimated GFR (Non- 4.6 BUN/Creatinine Ratio 8.8 Random Glucose 128 mg/dl Estimated Average Glucose 126 mg/dl Hemoglobin A1c 6.0 % Calcium Level 8.3 mg/dl Ionized Calcium 1.05 mmol/l Phosphorus Level 8.9 mg/dl Magnesium Level 1.9 mg/dl Total Bilirubin 0.6 mg/dl Aspartate Amino Transf (AST/SGOT) 9 U/L Alanine Aminotransferase (ALT/SGPT) 16 U/L Alkaline Phosphatase 104 U/L Total Creatine Kinase 26 U/L Creatine Kinase MB 1.9 ng/ml Creatine Kinase MB Ratio 7.3 Troponin I 0.971 ng/ml Total Protein 7.2 gm/dl Albumin 2.5 gm/dl Globulin 4.7 gm/dl Albumin/Globulin Ratio 0.5 Triglycerides Level 116 mg/dl Cholesterol Level 118 mg/dl HDL Cholesterol 42 mg/dl LDL Cholesterol, Calculated 53 mg/dl VLDL Cholesterol, Calculated 23 mg/dl Cholesterol/HDL Ratio 2.8 Bedside Glucose 116 mg/dl Random Vancomycin Level 15.3 mcg/ml September 20, 2016 TTE Interpretation Summary ([facility], Dr. Mancera): The rhythm is atrial fibrillation. Ejection Fraction = 50-55%. The apical septum is thinned and akinetic. The base inferoseptum is akinetic. The mid inferoseptum is hypokinetic. The apical inferior wall is severely hypokinetic to akinetic. The right ventricle is mildly dilated. The right ventricular systolic function is qualitatively normal. The aortic valve is moderately calcified. Mild valvular aortic stenosis. There is mild to moderate mitral regurgitation. There is severe tricuspid regurgitation. The estimated systolic PAP is 83mmHg. Dilated inferior vena cava with reduced collapsibility with sniff indicates an elevated right atrial pressure of 15 mmHg EKG dated and timed 09-OCT-2016 @ 20:25:36: Atrial fibrillation. Left axis deviation. Right bundle branch block. Possible Lateral infarct , age undetermined. T wave abnormality, consider inferior ischemia. When compared with ECG of 20-SEP-2016 06:36, Right bundle branch block has replaced Non- specific intra-ventricular conduction block. Borderline criteria for Lateral infarct are now Present EKG dated and timed 10-OCT-2016 @ 06:35:36: Atrial fibrillation. Left axis deviation. Right bundle branch block. T wave abnormality, consider inferolateral ischemia. When compared with ECG of 09-OCT-2016 20:25, ( unconfirmed) QRS duration has decreased. Borderline criteria for Lateral infarct are no longer Present. T wave inversion more evident in Inferior leads T wave inversion less evident in Anterior leads. Telemetry: Chronic atrial fibrillation with a controlled ventricular response. Admission CXR with congestive failure as per Dr. Lugo Venous duplex showed no evidence of acute deep venous thrombus within the left lower extremity and no change in nonocclusive chronic thrombus within the left superficial femoral vein since exam of September 18, [address] Crespo. (Amos Parry PA-C) Assessment & Plan New EKG changes. Suspect secondary to electrolyte abnormalities, anemia, acute illness ASCVD s/p CABG x 2 in 1999 Elevated troponin in the absence of evidence of an acute coronary syndrome Preserved LV systolic function. Chronic atrial fibrillation. Rates controlled. Risks of anticoagulation appear to be greater than the benefit Valvular heart disease. Mild aortic stenosis. Mild to moderate mitral regurgitation. There is severe tricuspid regurgitation. Options of management discussed with patient at length. She is asymptomatic in regards to angina and does not wish to open a [place]. Will continue conservative medical management. Avoid QTc prolonging medications if possible. She may benefit from switching Cardizem 120 to Toprol XL 25 mg/day. Continue statin. Add low dose ASA 81 mg/day if able. Further recommendations pending evaluation by Dr. Quiroz as well as her ongoing hospitalization. (Amos Parry PA-C) Cardiology attending: Pt seen and examined, agree with findings and assessment as per Amos Fernandez. No ischemic ekg changes, ivcd progressed to RBBB in the setting of electrolyte abnormalities and the need for dialysis. Pt asymptomatic from cardiac standpoint. No indication for further cardiac testing or intervention. Nephrology on board. (Fidencio Quiroz D.O.)
--- NOTE | 2016-10-10 11:29 | Pharmacy Progress Note ---
Glycemic Control Intl Consult Date of Service Oct 10, 2016. Scope Glycemic Pharmacist consulted by Dr Jimenez on 10/09/16 for glycemic control and to write orders per [facility] inpatient glycemic control protocol Objective Weight (Kilograms): 66.100 Accuchecks BSG (last 24hrs): Test 10/09/16 20:15 10/10/16 00:27 10/10/16 00:35 10/10/16 04:34 Random Glucose 199 mg/dl (70-99) 180 mg/dl (70-99) 128 mg/dl (70-99) Bedside Glucose 200 mg/dl (70-90) Test 10/10/16 06:58 Bedside Glucose 116 mg/dl (70-90) Laboratory Data (last 24hrs) Test 10/09/16 20:15 10/09/16 20:22 10/10/16 00:35 10/10/16 04:34 Anion Gap 17.0 mmol/L 21.0 mmol/L 19.0 mmol/L 18.0 mmol/L BUN/Creatinine Ratio 8.4 9.1 8.8 Blood Urea Nitrogen 63 mg/dl 68 mg/dl 68 mg/dl Creatinine 7.60 mg/dl 7.60 mg/dl 7.70 mg/dl Potassium Level 5.6 mmol/L 5.3 mmol/L 5.1 mmol/L Sodium Level 128 mmol/L 131 mmol/L 131 mmol/L White Blood Count 10.60 K/uL 9.50 K/uL Red Blood Count 2.33 M/uL Hemoglobin 7.2 g/dL Hematocrit 22.2 % Mean Corpuscular Volume 95.3 fL Mean Corpuscular Hemoglobin 30.9 pg Mean Corpuscular Hemoglobin Concent 32.4 g/dl Platelet Count 233 K/uL Mean Platelet Volume 9.7 fL Neutrophils (%) (Auto) 82.6 % Lymphocytes (%) (Auto) 7.5 % Monocytes (%) (Auto) 7.5 % Eosinophils (%) (Auto) 0.9 % Basophils (%) (Auto) 0.7 % Neutrophils # (Auto) 8.76 K/uL Lymphocytes # (Auto) 0.79 K/uL Monocytes # (Auto) 0.79 K/uL Eosinophils # (Auto) 0.10 K/uL Basophils # (Auto) 0.07 K/uL Hemoglobin A1c 6.0 % HbA1c Test 10/10/16 04:34 Hemoglobin A1c 6.0 % (4.5-5.6) H Recent Pertinent Medications Outpatient Anti-diabetic Regimen: * Regular insulin sliding scale, use as directed (unable to verify this with patient) The patient is currently receiving: * Correctional Insulin: Novolog Correction per scale ACHS Goal Range: Low 140 mg/dL - High 180 mg/dL Correction Factor: 35 mg/dL/unit * Prandial insulin: Per carb ratio of 1 unit per 11 grams CHO consumed Risk Factors for Insulin Resistance: * Wound infection- on chronic Vancomycin IV * Pt NPO- likely to go to OR for declotting of fistula * Renal/T2DM/Low K diet Assessment & Plan ASSESSMENT: * 76 yo T2D F admitted due to missed dialysis/lack of HD access * Per medication reconciliation- pt uses regular insulin per sliding scale as outpatient * Unable to rely on A1c due to ESRD/HD * She is NPO this AM/early afternoon awaiting evaluation of vascular surgeon * Plan will likely be to declot fistula and resume HD this evening * I see no need to change current insulin orders- patient has more risk factors of insulin sensitivity (advanced age, ESRD/HD) versus resistance * ADA & AACE recommend a goal blood sugar range 140-180 mg/dl for the majority of critically ill & non-critically ill patients. However, more stringent targets may be selected in individual cases. PLAN FOR INPATIENT GLYCEMIC CONTROL: * Continue Correctional Insulin with NOVOLOG per scale ACHS or Q6hrs while NPO * Goal Range: Low 140 mg/dL - High 180 mg/dL * Correction Factor: 35 mg/dL/unit * Nutritional / Prandial insulin per carb ratio of 1 unit per 11 grams CHO consumed * Please note that the plan above was derived based on current level of insulin resistance and hospital stress. These recommendations are appropriate for inpatient admission only. Plan of care upon discharge will need to be reassessed to avoid potential outpatient hypo/hyperglycemia. Thank you.
--- NOTE | 2016-10-10 12:39 | Medical Consult ---
Consultation Note Consultation Note LLE nonhealing wounds History of Present Illness The patient is a 76 year old female with multiple medical problems, including ESRD on HD and s/p RLE BKA, severe PAD, seen in consultation today for LUE AV graft malfunctioning at HD. Pt with continued BLE wounds. Admitted with anemia and hyperkalemia. Denies pain, edema, LIMON, fever, chills, N/V, other complaints. States has been ambulating with her RLE prosthesis and a walker, but not for a few weeks. Vitals Allergies Coded Allergies: Allopurinol (Unverified Allergy, Unknown, HIVES, 09/18/16) unknown reaction Cyclobenzaprine (Unverified Allergy, Unknown, DELIRIUM, 09/18/16) Sulfamethoxazole w/Trimethoprim (Unverified Allergy, Unknown, DELIRIUM, ) Home Medications Scheduled Atorvastatin (Lipitor), 1 TAB PO DAILY Diltiazem Hcl Coated Beads (Diltiazem Hcl Er), 1 CAP PO DAILY Doxepin Hcl (Sleep) (Silenor), 3 MG PO HS Magnesium Oxide (Mag-Ox), 400 MG PO DAILY Mupirocin 2% (Bactroban 2%), 1 APPLN EXT BID [place]-7-Tubw Ethyl Esters ([place]armen-3), 1 CAP PO BID Omeprazole (Prilosec), 20 MG PO DAILY Trazodone HCl (Trazodone HCl), 150 MG PO HS Vitamin B Cmplx/Vitc/Folic Ac (Nephrocaps), 1 CAP PO DAILY [lovaza ], 1 GM PO BID Scheduled PRN Hydrocodone/Acetaminophen 10MG/325MG ([place] 10MG/325MG), 1 TAB PO TID PRN for Pain Miscellaneous Medications Insulin Human Regular (Humulin R) Problem List Medical Problems: (1) Altered mental status (2) Anemia (3) CVA (cerebral vascular accident) (4) Diabetes mellitus, insulin dependent (IDDM), controlled (5) ESRD (end stage renal disease) (6) GERD (gastroesophageal reflux disease) (7) HTN (hypertension) (8) Hyperkalemia Surgical Problems: (1) Hx of CABG Surgical / Medical History Hx Cardiac Surgery: Yes (cabg) Hx Cancer Surgery: No Hx Thoracic Surgery: No Hx Orthopedic: Yes (hip repair) Hx Urinary Tract Surgery: No Past Medical/Surgical History: Diabetes, Kidney Disease Family History Noncontributory d/t age + HTN/CAD Social History Smoking Status: Never Smoker Hx Alcohol Use - Type & Amnt: No Hx Substance Use -Type & Amnt: No ROS: Vascular Con v2 Review of Systems Constitutional: No chills, No fever, No malaise Skin: No change in color Eyes: No visual changes ENMT: No sore throat Respiratory: No VALDES, No cough, No hemoptysis Cardiovascular: No chest pain, No edema, No intermittent claudication Gastrointestinal: No abdominal pain, No diarrhea, No nausea Genitourinary - Female: No dysuria, No hematuria Neurologic: No dizziness, No lethargy, No numbness Exam: Vascular Con v2 Physical Exam Constitutional: General Apperance: well-nourished, well-developed, too thin Level of Distress: NAD, acutely ill, chronically ill Psychiatric: Mental Status: active & alert, normal mood, confused Orientation: to place, to person, not oriented to time Memory: recent memory abnormal, remote memory abnormal Head: normocephalic, atraumatic Eyes: EOM: EOMI ENMT: normal ENT inspection, hearing grossly normal Neck: supple, trachea midline Lungs: Respiratory effort: no dyspnea Auscultation: breath sounds normal, no rales/crackles, no rhonchi Cardiovascular: Apical Impulse: not displaced Heart Auscultation: no rubs, no gallops, bradycardia Peripheral Pulses: Pulses: full and equal, in all extremities except if noted Bruits: none appreciated Carotid Pulse: normal on the left, normal on the right Brachial Pulses: normal on the left, normal on the right, pertinent finding (LUE AVF NO THRILL/BRUIT) Radial Pulse: normal on the left, normal on the right Femoral Pulse: decreased on the left, decreased on the right Posterior Tibialis Pulse: absent on the left, absent on the right Dorsalis Pedis Pulse: absent on the left, absent on the right Abdomen: Bowel Sounds: normal Inspection & Palpation: soft, non-distended, no tenderness, guarding & rebound Musculoskeletal: normal tone Extremities: Upper Right: no cyanosis, no edema, no varicosities Upper Left: no cyanosis, no edema, no varicosities Lower Right: no cyanosis, no edema, no varicosities, pertinent finding (+ BKA, well healed) Lower Left: no cyanosis, no edema, no varicosities, pertinent finding (LLE with multiple punctate eschars, small, scattered over foot/toes/heel. + cap refill to remaining toes. 3rd and 4th toes partially amputated, with open areas on remaining portions. No erythema, tenderness, or edema noted. No drainage or odor. ) Neurologic: Cranial Nerves: grossly intact A&P: Vascular Con v2 Assessment and Plan ASSESSMENT and PLAN: Malfunctioning LUE AV graft ESRD on HD Pt discussed with Dr Tovar, recommends LUE AV graft thrombectomy and fistulagram in OR tomorrow. Procedure, risks, benefits, and alternatives discussed with pt, she expresses understanding and agreement. (Jodie Burr, PA-C) Consultation Note Patient was seen, examined, and chart reviewed. Agree with exam and treatment plan of the Vascular PA. Will plan on declotting tomorrow. I have discussed the risks options and benefits of the procedure with the patient. The patient understands the risks options and benefits and agrees to the procedure. (Michael Tovar M.D.)
[2016-10-10 13:16] LABS: CKMB/CK RATIO 6.1 (0-3.0)
--- NOTE | 2016-10-10 13:33 | Pharmacy Progress Note ---
Pharmacy Antibiotic Consult Date of Service: Oct 10, 2016. Pharmacy Dosing Scope Pharmacy is consulted to initiate vancomycin IV dosing therapy, order appropriate labs and adjust drug dose/frequency. Subjective The patient is a 76 year old female admitted on Oct 09, 2016 at 21:34 with inability to have hemodialysis. Ms Barreto has been on vancomycin 500 mg IV after dialysis for a MRSA bacteremia since 09/18/16. She is expected to finish . She was admitted because her hemodialysis port had a clot and was unable to have dialysis through it. She did not have hemodialysis Saturday (typically ). She is scheduled for surgery tomorrow with Dr Tovar. Objective Height (Feet): 5 Height (Inches): 0.00 Weight (Kilograms): 66.100 Lab Results (24hrs): Laboratory Tests Test 10/09/16 20:15 10/10/16 00:35 10/10/16 04:34 BUN/Creatinine Ratio 8.4 9.1 8.8 Blood Urea Nitrogen 63 mg/dl 68 mg/dl 68 mg/dl Creatinine 7.60 mg/dl 7.60 mg/dl 7.70 mg/dl White Blood Count 10.60 K/uL 9.50 K/uL Red Blood Count 2.33 M/uL Hemoglobin 7.2 g/dL Hematocrit 22.2 % Mean Corpuscular Volume 95.3 fL Mean Corpuscular Hemoglobin 30.9 pg Mean Corpuscular Hemoglobin Concent 32.4 g/dl Platelet Count 233 K/uL Mean Platelet Volume 9.7 fL Neutrophils (%) (Auto) 82.6 % Lymphocytes (%) (Auto) 7.5 % Monocytes (%) (Auto) 7.5 % Eosinophils (%) (Auto) 0.9 % Basophils (%) (Auto) 0.7 % Neutrophils # (Auto) 8.76 K/uL Lymphocytes # (Auto) 0.79 K/uL Monocytes # (Auto) 0.79 K/uL Eosinophils # (Auto) 0.10 K/uL Basophils # (Auto) 0.07 K/uL Micro Results: RUN DATE: 09/21/16 [facility] LAB PAGE 1 RUN TIME: 1149 Specimen Inquiry PATIENT: BOBY BARRETO LOC: [place] U # : [id number] AGE/SX: 76/F ROOM: [facility] REG : 09/18/[address]: Low Jones MD : 1940 BED: 1 DIS : STATUS: ADM IN TLOC: SPEC #: [id number] LAUERN: 09/18/16 STATUS: COMP REQ #: [id number] RECD: 09/18/[address]: Nelida Hassan PA-C SOURCE: BLOOD ENTR: 09/18/16-[address]: Marley Augustine DO SPDESC: India Mclaughlin DO ORDERED: BLOOD CULTURE Procedure Result Verified Site BLD CULT Final 09/21/16-1149 Organism 1 STAPHYLOCOCCUS AUREUS SENS SENSITIVITY TO FOLLOW SENSITIVITY RESULT INDICATES A METHICILLIN RESISTANT STAPH. AUREUS. PHONED TO IVAN HUANG AND MARILUZ SINGH() ON 09/21/16 AT 0819 BY Quincy Shaw. Results were verbalized back to ANABELLE. Phoned Positive Blood Culture Gram Stain Report to NKECHI CALDERON on 09/19/16 At 1118 By EVANGELISTA. Results were verbalized back to EVANGELISTA. 1. STAPHYLOCOCCUS AUREUS Target Route Dose RX AB Cost M.I.C. IQ ------ ----- ------ -- ------ -------- - ------ TRIMET/SULFA S <=0.5/ 9.5 * OXACILLIN R * >2 VANCOMYCIN S 2 ERYTHROMYCIN R >4 TETRACYCLINE S <=4 CLINDAMYCIN S <=0.5 DAPTOMYCIN S <=0.5 RIFAMPIN S <=1 S = SENSITIVE I = INTERMEDIATE R = RESISTANT Assessment & Plan Vancomycin random is 15.3 mcg/mL this morning (10/10/16) --> no hemodialysis scheduled for today. Due to patient's current condition and the possibility that vancomycin trough could potentially drop below 15 mcg/mL (which would be detrimental in patient with a positive MRSA bacteremia). Will give smaller dose of vancomycin 250 mg x 1. Recheck random in AM of 10/11 prior to surgery. Pharmacy will continue to follow and will adjust dose/frequency as necessary. Thank you
[2016-10-10] MEDS ORDERED: VANCOMYCIN INJ 250 MG in SODIUM CHLORIDE 0.9% 100ML 100 ML IV ONE (14:00)
--- NOTE | 2016-10-10 18:29 | Progress Note ---
Internal Med Progress Note Date of Service: Oct 10, 2016. Provider Documentation: SUBJECTIVE: Patient is lying in her bed in no apparent distress. No SOB or chest pain/ pressure. Denies any new change or complaint. OBJECTIVE: Vital Signs-as noted below Examination: General Appearance: Alert/Awake, Chronically ill appearing. 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 ASSESSMENT & PLAN: History ESRD: On dialysis and missed her dialysis due to lethargy /dizzy spell /concern for malfunction of fistula -No evidence of vol overload clinically -Reviewed Nephrology input. Thanks -Vascular Surgery Dr Cramer consulted to evaluate HD access Hyperkalemia: : due to above -Given Kayexalate in [place] ED -1 gm Ca gluconate ordered for EKG changed ( new T wave inversion ) -Following Potassium closely. 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 Apical septum thinned and akinetic / mid infero septum hypokinetic /base inferoseptum akinetic , apical inf wall severely hypokinetic to akinetic -Cardiology consult requested Non-healing Wound Left Toe: Has history of MRSA bacteremia. Likely due to severe PVD -Wound care consult requested -Continue IV Vancomycin 500mg IV after dialysis. last day of treatment -No evidence of sepsis -no fever /leukocytosis Prolonger QTC:Qtc > 500 -Monitoring Mg. K. Phos level -Holding Zofran /Trazodone -Avoid meds causing Qtc prolongation Stage II Sacral Decubitus Ulcer: Present on admission -Wound care consult requested -Change position frequently Diabetes Type II: Controlled. HbA1c in Sep 2016 was 5.1. -Monitor BS and cover with Sliding scale as needed. History Hypertension: BP stable -Continue Cardizem with holding parameters Code Status: Pt wants all resuscitative effort to attempt if there is a chance for reasonable recovery Level 1 full code DVT Prophylaxis : Moderate to high risk due to limited mobility SCD -pharmacological anticoagulation avoided-due to anemia requiring PRBC transfusion Disposition : Currently at [facility] PT/OT eval requested Social service consulted for DC planning Vital Signs: Date Time Temp Pulse Resp B/P Pulse Ox O2 Delivery O2 Flow Rate FiO2 10/11/16 04:20 Room Air 10/11/16 04:00 36.8 79 18 105/62 96 Room Air 10/11/16 00:10 95 Room Air 10/10/16 23:11 36.4 82 16 93/51 95 Room Air 10/10/16 20:30 93 Room Air 10/10/16 19:58 36.6 79 16 96/44 93 Room Air 10/10/16 16:22 36.8 82 19 98/52 92 Room Air 10/10/16 16:00 92 Room Air 10/10/16 14:05 99/50 Lab Results: Results Past 24 Hours Test 10/10/16 16:08 10/10/16 17:42 10/10/16 20:04 10/11/16 05:35 Range/Units Bedside Glucose 228 112 70-90 mg/dl Sodium Level 129 130 136-145 mmol/L Potassium Level 5.0 5.2 3.5-5.1 mmol/L Chloride Level 92 91 98-107 mmol/L Carbon Dioxide Level 19 22 21-32 mmol/L Anion Gap 18.0 17.0 3-11 mmol/L Blood Urea Nitrogen 78 84 7-18 mg/dl Creatinine 8.60 9.10 0.60-1.20 mg/dl Est Creatinine Clear Calc Drug Dose 4.6 4.3 ml/min Estimated GFR () 4.6 4.3 Estimated GFR (Non- 4.0 3.7 BUN/Creatinine Ratio 9.1 9.2 10-20 Random Glucose 205 95 70-99 mg/dl Calcium Level 8.2 8.3 8.5-10.1 mg/dl White Blood Count 10.41 4.8-10.8 K/uL Red Blood Count 2.68 4.2-5.4 M/uL Hemoglobin 8.0 12.0-16.0 g/dL Hematocrit 24.4 37-47 % Mean Corpuscular Volume 91.0 80-100 fL Mean Corpuscular Hemoglobin 29.9 25-34 pg Mean Corpuscular Hemoglobin Concent 32.8 32-36 g/dl RDW Standard Deviation 60.7 36.4-46.3 fL RDW Coefficient of Variation 18.2 11.5-14.5 % Platelet Count 210 130-400 K/uL Mean Platelet Volume 9.6 7.4-10.4 fL Phosphorus Level 8.4 2.5-4.9 mg/dl Magnesium Level 2.1 1.8-2.4 mg/dl Total Bilirubin 0.4 0.2-1 mg/dl Aspartate Amino Transf (AST/SGOT) 10 15-37 U/L Alanine Aminotransferase (ALT/SGPT) 14 12-78 U/L Alkaline Phosphatase 100 45-117 U/L Total Protein 7.2 6.4-8.2 gm/dl Albumin 2.5 3.4-5.0 gm/dl Globulin 4.7 2.5-4.0 gm/dl Albumin/Globulin Ratio 0.5 0.9-2 Random Vancomycin Level 15.7 mcg/ml Test 10/11/16 06:18 10/11/16 06:36 10/11/16 08:38 Range/Units Ionized Calcium 1.00 1.12-1.32 mmol/l Bedside Glucose 104 150 70-90 mg/dl
[2016-10-10 18:36] LABS: BUN/CREATININE RATIO 9.1 (10-20); CALCIUM 8.2 mg/dl (8.5-10.1); CREATININE 8.6 mg/dl (0.60-1.20)
[2016-10-10] MEDS ORDERED: DOXEPIN HCL 3 MG PO SCH (21:00)
[2016-10-10] MEDS ORDERED: TRAZODONE HCL 100 MG TAB PO SCH (21:00)
[2016-10-11 00:10] VITALS: O2SAT 95
[2016-10-11 04:00] VITALS: BP 105/62; PULSE 79; TEMP 36.8; O2SAT 96
[2016-10-11 05:53] LABS: HEMATOCRIT 24.4 % (37-47); MEAN CORPUSCULAR HEMOGLOBIN 29.9 pg (25-34); MEAN CORPUSCULAR HGB CONC 32.8 g/dl (32-36); MEAN PLATELET VOLUME 9.6 fL (7.4-10.4); PLATELET COUNT 210 K/uL (130-400); RED BLOOD COUNT 2.68 M/uL (4.2-5.4); WHITE BLOOD COUNT 10.41 K/uL (4.8-10.8)
[2016-10-11] MEDS ORDERED: CEFAZOLIN 1000MG/55 ML D5W IV SCH (06:00)
[2016-10-11 06:29] LABS: ALB/GLOB RATIO 0.5 (0.9-2); BUN/CREATININE RATIO 9.2 (10-20); CALCIUM 8.3 mg/dl (8.5-10.1); MAGNESIUM 2.1 mg/dl (1.8-2.4); POTASSIUM 5.2 mmol/L (3.5-5.1)
[2016-10-11 06:50] LABS: PHOSPHORUS 8.4 mg/dl (2.5-4.9)
[2016-10-11] MEDS ORDERED: CEFAZOLIN IV 1,000 MG in DEXTROSE 5% 50ML 50 ML IV ONE (07:00)
[2016-10-11] MEDS ORDERED: FENTANYL CITRATE INJ 50 MCG/1 ML 2 ML VIAL ONE (07:20)
[2016-10-11] MEDS ORDERED: MIDAZOLAM HCL 1 MG/ML 2ML VIAL ONE (07:20)
[2016-10-11] MEDS ORDERED: HEPARIN SOD (PORCINE) 5000 UNIT/ML 1 ML VIAL ONE (07:21)
[2016-10-11] MEDS ORDERED: ATROPINE SULFATE 0.1 MG/ML 10 ML SYR ONE (07:21)
--- NOTE | 2016-10-11 07:25 | Progress Note ---
Progress Note Patient for mechanical thrombectomy of left arm fistula. If cant be declotted then will place permcath. I have discussed the risks options and benefits of the procedure with the patient. The patient understands the risks options and benefits and agrees to the procedure. I have examined the patient, reviewed the History & Physical and in the interval since the performance of the History & Physical I have noted the following changes of clinical significance: No changes noted
--- NOTE | 2016-10-11 07:49 | Procedure Note ---
Pre-Mod Sedation Assessment General Date of Moderate Sedation: Oct 11, 2016. Vital Signs: Vital Signs Past 12 Hours Date Time Temp Pulse Resp B/P Pulse Ox O2 Delivery O2 Flow Rate FiO2 10/11/16 04:20 Room Air 10/11/16 04:00 36.8 79 18 105/62 96 Room Air 10/11/16 00:10 95 Room Air 10/10/16 23:11 36.4 82 16 93/51 95 Room Air 10/10/16 20:30 93 Room Air 10/10/16 19:58 36.6 79 16 96/44 93 Room Air Pre-Sedation Airway Assessment Smoking Status: Never Smoker Mallampati Classification: Class I ASA Classification: Class II Notes The planned sedation has been discussed with the patient and consent obtained. I have identified the patient, determined the appropriateness of sedation and have assessed the patient immediately prior to the procedure. All medicine(s) and interventions are by my order.
[2016-10-11] MEDS ORDERED: LIDOCAINE HCL 1% 20 ML VIAL INJ ONE ×2 (07:56→08:11)
[2016-10-11] MEDS ORDERED: EPOETIN ALFA 10,000 UNITS/ML VIAL IV. SCH (08:00)
[2016-10-11] MEDS ORDERED: FENTANYL CITRATE INJ 50 MCG/1 ML 2 ML VIAL IV ONE (08:02)
[2016-10-11] MEDS ORDERED: MIDAZOLAM HCL 1 MG/ML 2ML VIAL IV ONE (08:02)
[2016-10-11] MEDS ORDERED: ORM MISCELLANEOUS MED XX ONE ×2 (08:23→08:34)
--- NOTE | 2016-10-11 08:27 | Pharmacy Progress Note ---
Pharmacy Antibiotic Prog Note Date of Service: Oct 11, 2016. Subjective: The patient is currently receiving vancomycin 500 mg IV after dialysis. She received an additional 250 mg x 1 yesterday The patient is currently on day # 2 of IV therapy while hospitalized. She has a tentative stop date of 10/18/16. Objective: Height (Feet): 5 Height (Inches): 0.00 Weight (Kilograms): 66.400 Levels: Item Value Date Time Random Vancomycin Level 15.3 mcg/ml 10/10/16 0836 Random Vancomycin Level 15.7 mcg/ml 10/11/16 0535 Lab Results (24hrs): Laboratory Tests Test 10/10/16 17:42 10/11/16 05:35 BUN/Creatinine Ratio 9.1 9.2 Blood Urea Nitrogen 78 mg/dl 84 mg/dl Creatinine 8.60 mg/dl 9.10 mg/dl White Blood Count 10.41 K/uL Assessment & Plan: These drug levels are: Therapeutic. Continue vancomycin 500 mg IV after dialysis. Goal peak level estimate: between 35 - 40 mcg/mL. Goal trough level estimate: between 15 - 20 mcg/mL (MRSA bacteremia). Random level has been ordered for: in the AM Pharmacy will continue to follow and will adjust dose/frequency as necessary. Thank you
[2016-10-11] MEDS ORDERED: FLUMAZENIL 0.1 MG/1 ML 10 ML VIAL IV ONE ×3 (08:33→08:36)
[2016-10-11] MEDS ORDERED: NALOXONE HCL 0.4 MG/1 ML VIAL/CARP ONE ×2 (08:33→08:42)
[2016-10-11] MEDS ORDERED: OPTIRAY 300 IV ONE (08:34)
[2016-10-11] MEDS ORDERED: NALOXONE HCL 0.4 MG/1 ML VIAL/CARP IV ONE ×2 (08:38→08:44)
[2016-10-11] MEDS ORDERED: ATROPINE SO4 1 MG/ML 1ML VIAL IV ONE ×2 (08:53)
[2016-10-11] MEDS ORDERED: NOREPINEPHRINE BITARTRATE 1 MG/ML 4 ML VIAL ONE (09:31)
--- NOTE | 2016-10-11 09:39 | Progress Note ---
Progress Note Patient underwent a mechanical thrombectomy of her left upper arm fistula. At end of procedure, she began getting hypoxic with decreasing pressure. She also started getting bradycardic. She was intubated and then lost her pulse. Code was called. Compressions and meds given per code sheet. She was pronounced at 9:29. Her daughter was informed
--- NOTE | 2016-10-11 09:49 | [facility] Post Operative Brief Note ---
Immediate Operative Summary Operative Date Oct 11, 2016. Pre-Operative Diagnosis Thrombosed left upper arm fistula Post-Operative Diagnosis Same Procedure(s) Performed Mechanical thrombectomy left upper arm fistula MICROFICHE DUPLICATOR venous Second puncture for intervention Moderate conscious sedation ([id number]) Surgeon Dr. Tovar [facility] Or Medical Surgeon(s) none Estimated Blood Loss 10cc Findings Thrombosed access and intrastent and proximal stenosis No residual post treatment Specimens none Anesthesia Local with moderate conscious sedation Complication(s) Post procedure arrest and Disposition
--- NOTE | 2016-10-11 10:03 | Progress Note ---
Progress Note Core Stripper: I responded to Code Blue in OR 12. The patient was being bagged with 100% FIO2 after having been intubated by anesthesia. She was in PEA and CPR was in progress. She was in the OR secondary to a clotted AV fistula and the procedure had been complete. BALANCE WHEEL SCREW HOLE DRILLER reported the patient had AMS and was unresponsive but improved - had been given Versed and Fentanyl which was reversed. Blood sugar acceptable and then became unresponsive again and noted to be in PEA. ACLS was continued and she received multiple doses of epi and 2mg Atropine. She also received NaHCO3 x 2 amps and calcium chloride 1gram x2. See code sheet for further details and sequence of drugs. NS was bolused, breath sounds check by me - present and equal bilaterally. Not difficult to bag. Pulse was regained transiently several times but not sustained and was regular, wide complex at 160, levophed started 0.3mcg/kg/min. Very limited echo showed no cardiac activity after 30 min of CPR. VBG drawn by me - Hg 11, K 5.6, Co2 19 - all after meds. Eventually the patient became asystolic and the code was called by Dr. Tovar at 0991.
--- NOTE | 2016-10-11 11:08 | Anesthesiology Progress Note ---
Anesthesia Post Op Note Date & Time Oct 11, 2016 at 10:45 Notes I received a call from the OR office at 08:[address] Tovar's pt in OR 12 needed to be intubated. This is all the information that was given to me. Anesthesia was not previously involved with this pt as she was receiving sedation by the OR 12 team for a mechanical thrombectomy by Dr. Tovar so I knew nothing about the pt. I did not know if the case was becoming more involved than expected so Dr. Tovar was requesting general anesthesia to be able to complete the procedure, or if the pt was in some degree of respiratory compromise requiring intubation. I went toward OR 12 right away[address] On the way, I passed by a SAWYER CORK SLABS whom I asked to follow me for assistance. When I arrived, mask ventilation was being attempted. Pulse ox waveform was poor but was reading in the 80s. I was told pulses were present but weak. I quickly grabbed a laryngoscope w/ a Mac 3 blade and a 7.0 cuffed ETT. I obtained a grade 2 view w / some external manipulation. I passed the tube through the cords to 21 cm at the lips. I inflated the balloon and began ventilating w/ an Ambu bag. I listened and confirmed equal breath sounds b/l and no sounds over the abdomen. The tube was placed about a minute after I arrived. At this point, pulses were lost so CPR was started. Rhythm was PEA so 1 mg of epinephrine was given and CPR continued. Russ choe was called. The code team quickly arrived including Dr. Busby who then led the code. Please see her note for additional details. I do not know the details leading up to the arrest prior to my arrival except for the following which I was told: the pt had been given 1 mg midazolam and 50 mcg fentanyl for the procedure. The procedure was completed and had been uneventful. The pt was doing well then suddenly became hypotensive, hypoxic, and unresponsive. I continued to ventilate during the code. We reconfirmed equal breath sounds b/l twice more during the code, once by a SAWY[employer] CORK SLABS and once by Dr. Busby. Ventilation was never difficult. A small amount of sero-sanguinous fluid was noted in the tube which we suctioned at one point. After Dr. Tovar called the end of the code, we left the ETT and all lines and monitors in place. The clinical coordinator and OR metal extrusion supervisor RN contacted the animal chiropractor. They told me that the animal chiropractor was releasing the body and therefore asked me to remove the ETT, which I then did.
[2016-10-11 12:23] LABS: CREATININE 9.1 mg/dl (0.60-1.20)
--- NOTE | 2016-10-11 12:48 | Discharge Summary ---
Discharge Summary Admission Date: Oct 09, 2016 at 21:34 Discharge Date: Oct 11, 2016 Discharge Disposition: Principal Diagnosis: Cardiac Arrest Hyperkalemia Secondary Diagnoses/Problems: ESRD Hypertension Diabetes Type II Infected Left Toe Stage II Sacral Decubitus Procedures: Embolectomy was planned Vaccinations: NONE Consultations: Nephrology Cardiology Vascular Surgery Pending Studies/Follow-Up: Patient was coded in the OR and . Received a call from Dr. Tovar. Admission Information HPI (per Admitting provider): This is a 76 yo Female with past medical hx of ESRD On dialysis, Type 2 DM , severe peripheral vascular disease , HTN , hyperlipidemia , anemia of chronic disease was recently admitted to [facility] from 09/18/16 to 09/26/16 for left foot toe wound infection , MRSA bacteremia on IV vancomycin after dialysis last date of tx on 10/18/16 pt is sent from [facility] to [facility] for weakness, fatigue , abnormal labs - Hyperkalemia , Anemia , unable to have dialysis today as per Pt and [facility] note -pt was very lethargic " wobbly " at the Dialysis center as she stood up to be weighed prior Dialysis treatment no report of syncope pt mentions they could not access her Left upper arm fistula due to clot sent to ED at [facility] Found to be hyperkalemia ; K 6.5 , Anemic hb 7.2 EKG shows new T wave inversion in ant and lateral lead -new changes compared to prior EKG in 09/18/16 pt was given PO Kayexalate , sent to [facility] ( [facility] does not have dialysis service ) in the ED repeat Lab shows mild improvement of K 5.6 , pt had large BM after Kayexalate persisted T wave inversion in EKG no symptom of chest heaviness or discomfort has baseline SOB /VALDES in the ED 1 unit of PRBC transfusion ordered pt will be admitted to [facility] service Physical Exam (per Admitting): General Appearance: + pertinent finding (chronically ill appearing ) Head: normocephalic, atraumatic Eyes: normal inspection, sclerae normal Neck: thyroid normal, no JVD, trachea midline Respiratory/Chest: chest non-tender, lungs clear, normal breath sounds, no respiratory distress Cardiovascular: regular rate, rhythm, no murmur Abdomen/GI: normal bowel sounds, non tender, soft Extremities/Musculoskelatal: + pertinent finding (s/p rt BKA, non healing wound on left 2nd and 3rd toe; 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 Tovar that patient has . History ESRD: On dialysis and missed her dialysis due to lethargy /dizzy spell /concern for malfunction of fistula -No evidence of vol overload clinically -Reviewed Nephrology input. Thanks -Vascular Surgery Dr Cramer consulted to evaluate HD access Hyperkalemia: : due to above -Given Kayexalate in [facility] ED -1 gm Ca gluconate ordered for EKG changed ( new T wave inversion ) -Following Potassium closely. 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 Apical septum thinned and akinetic / mid infero septum hypokinetic /base inferoseptum akinetic , apical inf wall severely hypokinetic to akinetic -Cardiology consult requested Non-healing Wound Left Toe: Has history of MRSA bacteremia. Likely due to severe PVD -Wound care consult requested -Continue IV Vancomycin 500mg IV after dialysis. last day of treatment -No evidence of sepsis -no fever /leukocytosis Prolonger QTC:Qtc > 500 -Monitoring Mg. K. Phos level -Holding Zofran /Trazodone -Avoid meds causing Qtc prolongation Stage II Sacral Decubitus Ulcer: Present on admission -Wound care consult requested -Change position frequently Diabetes Type II: Controlled. HbA1c in Sep 2016 was 5.1. -Monitor BS and cover with Sliding scale as needed. History Hypertension: BP stable -Continue Cardizem with holding parameters Code Status: Pt wants all resuscitative effort to attempt if there is a chance for reasonable recovery Level 1 full code DVT Prophylaxis : Moderate to high risk due to limited mobility SCD -pharmacological anticoagulation avoided-due to anemia requiring PRBC transfusion Total time spent on discharge = 35 minutes. This includes examination of the patient, discharge planning, medication reconciliation, and communication with other providers. Discharge Instructions Patient has . Additional Copies To Олег King M.D., Kerim I.,
[2016-10-11] MEDS ORDERED: SODIUM BICARB 8.4% INJ 50 MEQ/50 ML SYR IV ONE (13:47)
[2016-10-11] MEDS ORDERED: CALCIUM CHLORIDE 10% 10 ML SYR IV ONE (13:47)
[2016-10-11] MEDS ORDERED: SODIUM CHLORIDE 0.9% 10ML FLUSH IV ONE (13:47)
[2016-10-11] MEDS ORDERED: ATROPINE SULFATE 0.1 MG/ML 10 ML SYR IV ONE (13:47)
[2016-10-11] MEDS ORDERED: VANCOMYCIN INJ 500 MG in SODIUM CHLORIDE 0.9% 250ML 250 ML IV SCH (18:00)
--- NOTE | 2016-11-07 08:49 | DIAGNOSTIC IMAGING REPORT ---
DATE OF PROCEDURE: 10/11/2016 DATE OF PROCEDURE: 10/11/2016. PREOPERATIVE DIAGNOSIS: Thrombosed left upper arm fistula. POSTOPERATIVE DIAGNOSIS: Same with venous stenosis. PROCEDURE: 1. Mechanical thrombectomy left upper arm fistula. 2. Secondary puncture for intervention. 3. Balloon angioplasty of the venous outflow. 4. Conscious moderate sedation 53 minutes. SURGEON: Dr. Tovar. ANESTHETIC: Local with moderate sedation. PROCEDURE INDICATIONS: The patient is a 76-year-old female with endstage renal disease and a left upper arm fistula which is thrombosed. Thrombectomy was recommended. She understood the risks, options and benefits and agreed to have this procedure. This has been intervened on the past with stenting. The patient was taken to the angio suite and placed in supine position. After left arm was prepped and draped in a sterile manner, percutaneous puncture was made of the proximal portion of the left upper arm fistula. Sheath was inserted. A fistulogram showed clot throughout the fistula. There is a string of flow seen through the old stent. At that point an 0.035 wire was inserted. It was passed through the old stent up to the central veins. The central veins were patent. Using a Proxi mechanical thrombectomy catheter, the mechanical thrombectomy was performed of the fistula. This was done from the anastomosis of the venous side down to the puncture. Another antegrade puncture was then made and the proximal portion of the fistula then underwent mechanical thrombectomy after passing the 0.035 wire down through the arterial anastomosis. Completion angio showed a small amount of clot present in the fistula. The thrombectomy catheter was reinserted but prior to doing this, we did dilate up the stenosis in the venous stent. Post-dilatation there was no residual stenosis and excellent flow was seen. Again, we then did a second with mechanical thrombectomy in both directions. There is also a small focal narrowing seen just beyond the arterial anastomosis. This was also ballooned with the 6 x 60 balloon. Post-ballooning there is a small amount of residual clot along the fistula, but no hindrance of flow was seen. At that point we decided that no further intervention was needed. There was a good thrill in the fistula. The sheaths were pulled, pressure was applied. Adequate hemostasis was obtained. Dressings were applied to the wounds. Once the drapes were removed the patient became lethargic and had a respiratory arrest. During the procedure she did have a 2-3 small bouts of bradycardia down into the 50s from the mechanical thrombectomy, but maintained her pressure with that. She was slightly hypotensive for a short period in the procedure in the high 80s. Her sats during the procedure were adequate throughout. The patient was coded after the procedure was completed and could not be resuscitated. She in the operating room after the procedure.
== END 2016-10-11 13:48 | disposition expired | DRG 252 ==
LOC: ENRESERVDT → ENRESERVTM → EDBD 19:22 → C.ED 19:23 → C.2E 21:34
PROVIDERS: ADMIT Hospitalist; ATTEND Emergency Medicine
PROC: 5A12012 Performance of Cardiac Output, Single, Manual (ICD-10-PCS; 2016-10-11)
PROC: 0BH18EZ Insertion of Endotracheal Airway into Trachea, Via Natural or Artificial Opening Endoscopic (ICD-10-PCS; 2016-10-11)
PROC: 057Y3ZZ Dilation of Upper Vein, Percutaneous Approach (ICD-10-PCS; principal; 2016-10-11 07:30)
PROC: 05CY3ZZ Extirpation of Matter from Upper Vein, Percutaneous Approach (ICD-10-PCS; principal; 2016-10-11 07:30)
DX: T82.868A Thrombosis due to vascular prosthetic devices, implants and grafts, initial encounter (principal); N18.6 End stage renal disease; I97.121 Postprocedural cardiac arrest following other surgery; I12.0 Hypertensive chronic kidney disease with stage 5 chronic kidney disease or end stage renal disease; D63.1 Anemia in chronic kidney disease; E87.5 Hyperkalemia; K21.9 Gastro-esophageal reflux disease without esophagitis; E78.5 Hyperlipidemia, unspecified; I48.2 Chronic atrial fibrillation; Z86.14 Personal history of Methicillin resistant Staphylococcus aureus infection; L89.152 Pressure ulcer of sacral region, stage 2; I46.9 Cardiac arrest, cause unspecified; E83.51 Hypocalcemia; I08.3 Combined rheumatic disorders of mitral, aortic and tricuspid valves; I25.10 Atherosclerotic heart disease of native coronary artery without angina pectoris; L08.9 Local infection of the skin and subcutaneous tissue, unspecified; E11.21 Type 2 diabetes mellitus with diabetic nephropathy; Y83.2 Surgical operation with anastomosis, bypass or graft as the cause of abnormal reaction of the patient, or of later complication, without mention of misadventure at the time of the procedure; I70.202 Unspecified atherosclerosis of native arteries of extremities, left leg; Z86.73 Personal history of transient ischemic attack (TIA), and cerebral infarction without residual deficits; Z88.2 Allergy status to sulfonamides; Z95.1 Presence of aortocoronary bypass graft; Z89.511 Acquired absence of right leg below knee; Z99.2 Dependence on renal dialysis; Y92.009 Unspecified place in unspecified non-institutional (private) residence as the place of occurrence of the external cause